=== PATIENT | female | born 1965 | race Caucasian/White ===

== ENCOUNTER 2025-02-08 00:26 | Day surgery (SDC) | payer BC, SELFPAY ==
[2025-02-01 09:32] VITALS: BMI 15.5
--- NOTE | 2025-02-01 09:33 | PC.NURSE ---
[facility] has started construction of its new state of the art ER which will open Spring 2026. With this, we anticipate parking may be a challenge for some our surgical patients and families. Parking spaces are limited but are available for all Surgical, obstetrics, and ER patients sharing this lot. If you arrive and find you are having a hard time finding a parking space, please note that we understand the challenges, please drive around the hospital and park near Hospital Entrance 1. When you enter this entrance, you can ask a volunteer to direct or take you back to the surgical waiting area to check in. We appreciate everyone?s understanding of these expected challenges while we build for your future. Report to the Outpatient Waiting Room, entrance under the green pavilion located off [address], at time _0730_ on date _[phone]_. Planned Procedure Time: _0930_.? Time changes happen often and if your time is changed the preop area will call you the afternoon before. - You and your visitor will be asked to self-screen and do not enter if you have any COVID symptoms. Please call surgeon if you need to reschedule. - A mask is optional within the hospital at this time. Patients may have clear liquids (water, carbonated beverages, clear teas, apple juice) until 3 hours prior to surgery with a maximum of 20 ounces. - No food from midnight until time of surgery and no smoking, or chewing tobacco (or any form of nicotine). No chewing gum, candy or mints. Take only the following medications with a SIP of water on the morning of surgery: ____Trelegy, Reglan and if needed zofran and or Compazine. DO NOT STOP ANY OF YOUR OTHER PRESCRIPTION MEDICATIONS PRIOR TO SURGERY EXCEPT THE FOLLOWING Hold all vitamins and supplements for 3 days per anesthesiologist. Medications to discontinue per physician Date to take last dose Please no make-up, nail trinidadian, hairspray, perfume, deodorant, or body powder the day of surgery.? No jewelry (including any body piercings) or valuables the day of surgery, leave them at home.? Please take a shower or bath the night before, or the morning of, surgery with an antibacterial soap.? Wear comfortable, loose fitting clothing.? - Jewelry must be removed prior to entering the operating room.? Rings and piercings that are not removed may be cut off. - The hospital will not accept responsibility for valuables.? - Please leave all valuables, including medications, at home the day of surgery. If you are going home after surgery, a licensed mobile lounge driver or operator must drive you home.? - NO public transportation without another adult if you receive anesthesia. - We recommend that an adult stay with you for 24 hours following discharge. - We also recommend that you do not drive, make important decision, drink alcoholic beverages, or take any drugs that were not prescribed by your health care provider for at least 24 hours after your discharge time. Follow any additional instructions given to you from your surgeon. Telephone instructions given to __Rose___and asked if any additional questions and then verbalized understanding. Patient advised to call surgeon office or pre surgery nurse liaison [phone] if any additional questions.
[2025-02-08] VITALS (8 sets, daily range): BP systolic 109–154; BP diastolic 50–97; PULSE 72–106; RESP 16–18; TEMP 36.4; O2SAT 98–100
--- NOTE | ~2025-02-08 | XR_ITS ---
EXAMINATION: XR retrograde pyelo w/stent RT DATE: 02/08/2025 13:20 INDICATION: Right internal ureteral stent placement TECHNIQUE: Fluoroscopic images from a right internal ureteral stent placement are submitted for review. 18 seconds of fluoroscopy time. FINDINGS: There is a right double-J internal ureteral stent projecting in expected position, with proximal [place] loop at the level of the renal pelvis and distal loop in the pelvis within the bladder lumen. IMPRESSION: 1. Right internal ureteral stent placement. Please refer to real-time procedural findings for details. Reviewed, dictated and finalized at location O. MAKER IMPRESSION: 1. Right internal ureteral stent placement. Please refer to real-time procedu ral findings for details.
--- OUTSIDE RECORDS SUMMARY | 2025-02-08 00:29 | XMS_ITS | Encounter Summary ---
Author Organization [facility] Address [address] [place] [address] Phone Care Team Providers Care Designer And Patternmaker Name Role Phone Hien Cunningham MD Primary Care Provider [phone] Turner Freeman MD Primary Care Provider Hien Cunningham MD Primary Care Provider [phone] Encounter Details Date Type Department Care Team (Late st Contact Info) Description 06/29/2017 Orders Only [facility] ProviderManuel MD [address] [place] [address] Social History Tobacco Use Types Packs/Day Years Used Date Smoking Tobacco: Former Comments Unknown Sex and Gender Information Value Date Recorded Sex Assigned at Not on file Legal Sex Female 10:16 PM MD UROLOGIST Gender Identity Not on file Sexual Orientation Not on file documented as of this encounter Plan of Treatment Not on file documented as of this encounter Procedures Procedure Name Priority Date/Time Associated Diagnosis Comments DISCHARGE LABORATORY CUMULATIVE REPORT 06/29/2017 12:00 AM CDT CYTOLOGY 06/29/2017 12:00 AM CDT documented in this encounter Results * DISCHARGE LABORATORY CUMULATIVE REPORT (06/29/2017 12:00 AM CDT) Narrative 06/29/2017 12:00 AM CDT Ordered by an unspecified provider. Historical Provider LAB BLOOD ORDERABLES Madyson l Result * CYTOLOGY (06/29/2017 12:00 AM CDT) Narrative 06/29/2017 12:00 AM CDT Ordered by an unspecified provider. Historical Provider LAB CYTOLOGY ORDERABLES F inal Result documented in this encounter Visit Diagnoses Not on filedocumented in this encounter Care Teams Designer And Patternmaker Relationship Specialty Start Date End Date Hien Cunningham MD [address] [address] PCP - General 06/29/17 07/07/17 Turner Freeman MD [address] [address] PCP - General 07/08/17 07/17/18 Hien Cunningham MD [address] [place] [address] PCP - General Family Medicine 07/18/18 documented as of this encounter
--- OUTSIDE RECORDS SUMMARY | 2025-02-08 00:29 | XMS_ITS | Encounter Summary ---
Author Organization [facility] Address [facility] [place] [address] Care Team Providers Care Pickle Sorter Name Role Phone Hien Cunningham MD Primary Care Provider [phone] Pawel Neil MD Unavailable [phone] Gemma Reed MD Unavailable [phone] Suhas Canada DO Unavailable Blaise Jennings MD Unavailable [phone] Ant Hernandez MD Unavailable Encounter Details Date Type Department Care Team (Latest Contact Info) Description 08/11/[address] [facility] , Bessie Johnston MD Social History Tobacco Use Types Packs/Day Years Used Date Smoking Tobacco: Never Assessed Comments Unknown Sex and Gender Information Value Date Recorded Sex Assigned at Female 03/06/2024 7:21 AM QUALITY SYSTEM MANAGER Legal Sex Female 7:54 PM CDT Gender Identity Not on file Sexual Orientation Not on file documented as of this encounter Plan of Treatment Upcoming Encounters Date Type Department Care Team (Late st Contact Info) Description 02/18/2025 12:00 PM QUALITY SYSTEM MANAGER Office Visit [facility] Family Medicine - [place] [address] [facility] [place] [address] Hien Cunningham MD [address] [facility] [address] [place] [address] 06/11/2025 10:30 AM CDT Appointment [facility] Radiation Oncology [address] [place] [address] Ant Hernandez MD [address] [facility] [address] [place] [address] 07/24/2025 8:20 AM CDT Office Visit [facility] Pulmonology Specialty Clinic - [place] [address] [place] [address] Krzysztof Molina MD [address] [address] documented as of this encounter Visit Diagnoses Not on filedocumented in this encounter Additional Health Concerns Infection Onset Date Last Indicated Resolved Time COVID-19 Rule Out 12/10/2019 12/10/2019 12/12/2019 6:30 AM CDT COVID-19 Rule Out 02/16/2021 02/16/2021 02/16/2021 3:32 PM QUALITY SYSTEM MANAGER COVID-19 Rule Out 02/16/2021 02/16/2021 02/18/2021 1:57 AM QUALITY SYSTEM MANAGER COVID-19 Confirmed 02/16/2021 02/16/2021 12:33 AM QUALITY SYSTEM MANAGER COVID-19 Rule Out 12/20/2022 12/20/2022 12/20/2022 11:11 AM QUALITY SYSTEM MANAGER COVID-19 Rule Out 01/29/2023 01/29/2023 01/29/2023 4:04 PM QUALITY SYSTEM MANAGER COVID-19 Rule Out 03/03/2023 03/03/2023 03/03/2023 9:58 AM QUALITY SYSTEM MANAGER Tuberculosis Rule-Out 06/05/2024 06/05/20242024 1:25 PM CDT 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 [facility] [address] [place], [place] [phone] Consulting Physician CARDIOVASCULAR DISEASE 05/29/24 Gemma Reed MD [address] [facility] [address] [place] [address] GASTROENTEROLOGY 05/29/24 Suhas Canada DO 3 [facility] [address] [place] [phone] Resident GASTROENTEROLOGY 05/29/24 Blaise Jennings MD [address] [place] [address] [address] [place] [phone] Medical Oncologist HEMATOLOGY/ONCOLOGY 05/29/24 Ant Hernandez MD 1 [place] [address] Consulting Physician RADIATION ONCOLOGY 06/18/24 documented as of this encounter
--- OUTSIDE RECORDS SUMMARY | 2025-02-08 00:29 | XMS_ITS | Encounter Summary ---
Author Organization [facility] Address [facility] [place] [address] Care Team Providers Care Procurement Internship Name Role Phone Hien Cunningham MD Primary Care Provider Pawel Neil MD Unavailable [phone] Gemma Rede MD Unavailable [phone] Suhas Canada DO Unavailable Blaise Jennings MD Unavailable [phone] Ant Hernandez MD Unavailable Encounter Details Date Type Department Care Team (Latest Contact Info) Description 11/01/2023 MyChart Message Enc [facility] Pulmonology Specialty Clinic - [address] [place] [address] Krzysztof Molina MD [address] [address] Follow up lung scan Social History Tobacco Use Types Packs/Day Years Used Date Smoking Tobacco: Former Cigarettes Passive Smoke Exposure: Past Smokeless Tobacco: Never Comments:Pt report she stopp ed smoking on August 17. Alcohol Use Standard Drinks/Week Comments Yes 6.7 (1 standard drin k = 0.6 oz pure alcohol) only on weekends with company [facility] Utilities Answer Date Recorded In the past 12 months has e [employer], gas, oil, or water [employer] threatened to shut off services in your home? No 01/29/2023 Humiliation, Afraid, Rape, and Kick questionnair e Answer Date Recorded Within the last year, have y ou been afraid of your partner or ex-partner? No 01/29/2023 Within the last year, have y ou been humiliated or emotionally abused in other ways by your partner or ex-partner? No Within the last year, have y ou been kicked, hit, slapped, or otherwise physically hurt by your partner or ex-partner? No 01/29/2023 Within the last year, have y ou been raped or forced to have any kind of sexual activity by your partner or ex-partner? No 01/29/2023 AUDIT-C Answer Date Recorded Frequency of Alcohol Consumption Not on file 11/03/2017 Average Number of Drinks 10 or more 018 Frequency of Binge Drinking Weekly 10/16 Overall Financial Resource Strain (CARDIA) Answe r Date Recorded How hard is it for you to pa y for the very basics like food, housing, medical care, and heating? Not hard at all 01/29/2023 PHQ-2 Answer Date Recorded Patient Health Questionnaire-2 Score 3 09/08/2023 Hunger Vital Sign Answer Date Recorded Within the past 12 months, y ou worried that your food would run out before you got the money to buy more. Never true 01/30/20 23 Within the past 12 months, t he food you bought just didn't last and you didn't have money to get more. Never true 01/29/2023 PRAPARE - Transportation Answer Date Re corded In the past 12 months, has l ack of transportation kept you from medical appointments or from getting medications? No 01/14 In the past 12 months, has l ack of transportation kept you from meetings, work, or from getting things needed for daily living? No 01/29/2023 Housing Stability Vital Sign Answer Robert e Recorded In the last 12 months, was t here a time when you were not able to pay the mortgage or rent on time? No 01/29/2023 In the last 12 months, how many places have you lived? 1 01/29/2023 In the last 12 months, was t here a time when you did not have a steady place to sleep or slept in a [place] facility (including now)? No 01/29/2023 Comments No Sex and Gender Information Value Date Recorded Sex Assigned at Female 03/06/2024 7:21 AM TOWBOAT PILOT Legal Sex Female 7:54 PM CDT Gender Identity Not on file Sexual Orientation Not on file documented as of this encounter Functional Status * Are you deaf or do you have serious difficulty hearing Answer Date of Assessment Author Status No 01/29/2023 12:27 PM Dagmar Santiago RN Active * Are you blind or do you have serious difficulty seeing, even when wearing glasses? Answer Date of Assessment Author Status No 01/29/2023 12:27 PM Dagmar Santiago RN Active * Do you have serious difficulty walking or climbing stairs? Answer Date of Assessment Author Status No 01/29/2023 12:27 PM Dagmar Santiago RN Active * Do you have difficulty dressing or bathing? Answer Date of Assessment Author Status No 01/29/2023 12:27 PM Dagmar Santiago RN Active * Because of a physical, mental, or emotional condition, do you have difficulty doing errands alone such as visiting a doctor's office or shopping? Answer Date of Assessment Author Status No 01/29/2023 12:27 PM Dagmar Santiago RN Active documented as of this encounter Mental Status * Because of a physical, mental, or emotional condition, do you have serious difficulty concentrating, remembering, or making decisions? Answer Entry Date Author Status No 01/29/2023 12:27 PM Dagmar Santiago RN Active documented in this encounter Plan of Treatment Upcoming Encounters Date Type Department Care Team (Late st Contact Info) Description 02/18/2025 12:00 PM TOWBOAT PILOT Office Visit [facility] Family Medicine - [place] [address] [facility], [address] ' [place] [address] Hien Cunningham MD [address] [facility] [place] [address] 06/11/2025 10:30 AM CDT Appointment [facility] Radiation Oncology [address] [place] [address] Ant Hernandez MD [address] [facility] [address] [place] [address] 07/24/2025 8:20 AM CDT Office Visit [facility] Pulmonology Specialty Clinic - 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 [facility] [address] [place], [place] [address] Consulting Physician CARDIOVASCULAR DISEASE 05/29/24 Gemma Reed MD [address] [place] [address] GASTROENTEROLOGY 05/29/24 Suhas Canada DO [address] [phone] Resident GASTROENTEROLOGY 05/29/24 Blaise Jennings MD [address] [place] [address] Medical Oncologist HEMATOLOGY/ONCOLOGY 05/29/24 Ant Hernandez MD 1 [place] [address] Consulting Physician RADIATION ONCOLOGY 06/18/24 documented as of this encounter
--- OUTSIDE RECORDS SUMMARY | 2025-02-08 00:29 | XMS_ITS | Clinical Summary ---
Author Organization [facility] Address [address] [place] [address] Care Team Providers Care Glass Installer Name Role Phone Unavailable Primary Care Provider Unavailabl e Social History Tobacco Use Types Packs/Day Years Used Date Smoking Tobacco: Never Assessed Comments Unknown Sex and Gender Information Value Date Recorded Sex Assigned at Not on file Legal Sex Female 7:28 PM TELEVISION ACTOR Gender Identity Not on file Sexual Orientation Not on file Plan of Treatment Health Maintenance Due Date Last Done Comments HPV/Cotest (21-29) 1985 CERVICAL CANCER SCREENING 1994 HPV/Cotest (30-65) 1994 PAP SMEAR 1994 BREAST CANCER SCREENING 2004 COLORECTAL SCREENING 2009 Colorectal Cancer Screening 2009 FIT-DNA Q 3 years 2009 FIT/FOBT Q 1 year 2009 Flex Sig/CT Colonography Q 5 years 2009 ZOSTER VACCINE (1 of 2) 2014 INFLUENZA VACCINE (#1) 2024 6, 11/19/2014, 11/11/2011, Additional history exists DTAP/TDAP/TD VACCINES (2 - Td or Tdap) 12/29/2025 12/30/2015 RSV VACCINE (60+ or ) (1 - 1-dose 75+ series) 10/31/2039 HEPATITIS B VACCINES Aged Out No long er eligible based on patient's age to complete this topic
--- OUTSIDE RECORDS SUMMARY | 2025-02-08 00:29 | XMS_ITS | Encounter Summary ---
Author Organization [facility] Address [facility] [place] [address] Care Team Providers Care Compensation Associate Name Role Phone Hien Cunningham MD Primary Care Provider [phone] Pawel Neil MD Unavailable [phone] Gemma Reed MD Unavailable [phone] Suhas Canada DO Unavailable Blaise Jennings MD Unavailable [phone] Ant Hernandez MD Unavailable Encounter Details Date Type Department Care Team (Latest Contact Info) Description 12/20/2017 Abstract [facility] , Bessie Johnston MD Social History Tobacco Use Types Packs/Day Years Used Date Smoking Tobacco: Every Day Cigarettes Smokeless Tobacco: Never Comments:.5- 1 pk a day Alcohol Use Standard Drinks/Week Comments Yes 0 (1 standard drink = 0.6 oz pur e alcohol) AUDIT-C Answer Date Recorded Frequency of Alcohol Consumption Not on file 11/03/2017 Average Number of Drinks 10 or more 018 Frequency of Binge Drinking Weekly 10/16 Comments Unknown Sex and Gender Information Value Date Recorded Sex Assigned at Female 03/06/2024 7:21 AM LOW ALTITUDE AIR DEFENSE OFFICER Legal Sex Female 7:54 PM CDT Gender Identity Not on file Sexual Orientation Not on file documented as of this encounter Plan of Treatment Upcoming Encounters Date Type Department Care Team (Late st Contact Info) Description 02/18/2025 12:00 PM LOW ALTITUDE AIR DEFENSE OFFICER Office Visit [facility] Family Medicine - [place] [address] [place] [address] Hien Cunningham MD [address] [facility] [address] [facility] [address] [place] [address] 06/11/2025 10:30 AM CDT Appointment [facility] Radiation Oncology [address] [place] [address] Ant Hernandez MD [address] [facility] [address] [place] [address] 07/24/2025 8:20 AM CDT Office Visit [facility] Pulmonology Specialty Clinic - [address] [place] [address] Krzysztof Molina MD 3 [facility] [address] [place] [address] documented as of this encounter Visit Diagnoses Not on filedocumented in this encounter Additional Health Concerns Infection Onset Date Last Indicated Resolved Time COVID-19 Rule Out 12/10/2019 12/10/2019 12/12/2019 6:30 AM CDT COVID-19 Rule Out 02/16/2021 02/16/2021 02/16/2021 3:32 PM LOW ALTITUDE AIR DEFENSE OFFICER COVID-19 Rule Out 02/16/2021 02/16/2021 02/18/2021 1:57 AM LOW ALTITUDE AIR DEFENSE OFFICER COVID-19 Confirmed 02/16/2021 02/16/2021 12:33 AM LOW ALTITUDE AIR DEFENSE OFFICER COVID-19 Rule Out 12/20/2022 12/20/2022 12/20/2022 11:11 AM LOW ALTITUDE AIR DEFENSE OFFICER COVID-19 Rule Out 01/29/2023 01/29/2023 01/29/2023 4:04 PM LOW ALTITUDE AIR DEFENSE OFFICER COVID-19 Rule Out 03/03/2023 03/03/2023 03/03/2023 9:58 AM LOW ALTITUDE AIR DEFENSE OFFICER Tuberculosis Rule-Out 06/05/2024 06/05/20242024 1:25 PM CDT 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 06/08/24 +MRSA sputum 06/05/2024 06/08/2024 documented as of this encounter Care Teams Compensation Associate Relationship Specialty Start Date End Date Hien Cunningham MD [address] [facility] [address] [place] [phone] PCP - General FAMILY PRACTICE 10/13/17 Pawel Neil MD Three [facility] [address] [place] [address] Consulting Physician CARDIOVASCULAR DISEASE 05/29/24 Gemma Reed MD [address] [facility] [facility] [address] [place] [address] GASTROENTEROLOGY 05/29/24 Suhas Canada DO 3 [facility] [address] [place] [phone] Resident GASTROENTEROLOGY 05/29/24 Blaise Jennings MD [address] [place] [address] [address] [place] [phone] Medical Oncologist HEMATOLOGY/ONCOLOGY 05/29/24 Ant Hernandez MD 1 [place] [address] Consulting Physician RADIATION ONCOLOGY 06/18/24 documented as of this encounter
--- OUTSIDE RECORDS SUMMARY | 2025-02-08 00:29 | XMS_ITS | Encounter Summary ---
Author Organization [facility] Address [address] [place] [address] Care Team Providers Care Piggery Worker Name Role Phone Hien Cunningham MD Primary Care Provider [phone] Pawel Neil MD Unavailable [phone] Gemma Reed MD Unavailable [phone] Suhas Canada DO Unavailable Blaise Jennings MD Unavailable [phone] Ant Hernandez MD Unavailable Encounter Details Date Type Department Care Team (Late st Contact Info) Description 11/07/2017 Abstract [facility] at [facility], [address] [address] Emelia Richmond MA Social History Tobacco Use Types Packs/Day Years [...] Sex Assigned at Female 03/06/2024 7:21 AM HAND SLITTER Legal Sex Female 7:54 PM CDT Gender Identity Not on file Sexual Orientation Not on file documented as of this encounter Plan of Treatment Upcoming Encounters Date Type Department Care Team (Late st Contact Info) Description 02/18/2025 12:00 PM HAND SLITTER Office Visit [facility] Family Medicine - [place] [address] [place] [address] Hien Cunningham MD [address] [facility] [address] [place] [address] 06/11/2025 10:30 AM CDT Appointment [facility] Radiation Oncology [address] [place] [address] Ant Hernandez MD [address] [facility] [address] [place], [place] [id number] 07/24/2025 8:20 AM CDT Office Visit [facility] Pulmonology Specialty Clinic - [address] [place] [address] Krzysztof Molina MD [address] [address] documented as of this encounter Procedures Procedure Name Priority Date/Time Associated Diagnosis Comments LIPID PANEL Routine 08/09/2023 CBC (OUTSIDE LAB) Routine 10/22/2017 COMPREHENSIVE METABOLIC PANEL Routine 10/22/2017 LIPID PANEL Routine 10/22/2017 HEMOGLOBIN GLYCOSYLATED A1C Routine 10/22/2017 THYROXINE, FREE (FT4) Routine 10/22/2017 THYROID STIM HORMONE TSH Routine 10/22/2017 documented in this encounter Results * LIPID PANEL (08/09/2023) CHOLESTEROL 270 HDL 51 TRIGLYCERIDES 294 NON HDL CHOLESTEROL 219 LDL (CALCULATED) 174 08/09/2023 us Default History Genericprovider LABORATORY Final Result * HEMOGLOBIN, GLYCOSYLATED (10/22/2017) Pathologist [facility] HGB A1C 6.2 10/22/2017 us Doc [facility] Abstract LABORATORY Final Result * LIPID PANEL (10/22/2017) Pathologist [facility] CHOLESTEROL 156 HDL 36 TRIGLYCERIDES 257 LDL (CALCULATED) 69 10/22/2017 us Doc [facility] Abstract LABORATORY Final Result * (ABNORMAL) COMPREHENSIVE METABOLIC PANEL (10/22/2017) Pathologist [facility] SODIUM S/P/B 140 POTASSIUM S/P/B 4.1 CO2 22 CHLORIDE S/P/B 101 GLUCOSE 113 mg/dL CALCIUM S/P/B 9.0 BUN 13 CREATININE S/P/B 0.53 0.5 - 1.0 EGFR AFR. AMER. 126(A) <=90 EGFR NON-AFR. AMER. 110(A) <=90 ALKALINE PHOSPHATASE S/P/B 75 ALT 15 AST 15 BILIRUBIN TOTAL S/P/B 0.4 ALBUMIN S/P/B 5.3(A) 3.5 - 5.0 TOTAL PROTEIN S/P/B 6.6 10/22/2017 us Doc [facility] Abstract LABORATORY Final Result * CBC (OUTSIDE LAB) (10/22/2017) Pathologist [facility] WBC 7.0 HGB 14.9 HCT 44.4 PLT 273 10/22/2017 us Doc [facility] Abstract LAB-OUTSIDE/ABSTRACTED Final Result * THYROXINE, FREE (FT4) (10/22/2017) FREE T4 1.09 10/22/2017 us Doc [facility] Abstract LABORATORY Final Result * THYROID STIM HORMONE, TSH (10/22/2017) TSH 0.731 10/22/2017 us Doc [facility] Abstract LABORATORY Final Result documented in this encounter Visit Diagnoses Not on filedocumented in this encounter Additional Health Concerns Infection Onset Date Last Indicated Resolved Time COVID-19 Rule Out 12/10/2019 12/10/2019 12/12/2019 6:30 AM CDT COVID-19 Rule Out 02/16/2021 02/16/2021 02/16/2021 3:32 PM HAND SLITTER COVID-19 Rule Out 02/16/2021 02/16/2021 02/18/2021 1:57 AM HAND SLITTER COVID-19 Confirmed 02/16/2021 02/16/2021 12:33 AM HAND SLITTER COVID-19 Rule Out 12/20/2022 12/20/2022 12/20/2022 11:11 AM HAND SLITTER COVID-19 Rule Out 01/29/2023 01/29/2023 01/29/2023 4:04 PM HAND SLITTER COVID-19 Rule Out 03/03/2023 03/03/2023 03/03/2023 9:58 AM HAND SLITTER Tuberculosis Rule-Out 06/05/2024 06/05/20242024 1:25 PM CDT 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 06/08/24 +MRSA sputum 06/05/2024 06/08/2024 documented as of this encounter Care Teams Piggery Worker Relationship Specialty Start Date End Date Hien Cunningham MD [address] [phone] PCP - General FAMILY PRACTICE 10/13/17 Pawel Neil MD Three [address] [address] Consulting Physician CARDIOVASCULAR DISEASE 05/29/24 Gemma Reed MD [address] [facility] [address] [place] [address] GASTROENTEROLOGY 05/29/24 Suhas Canada DO [address] [phone] Resident GASTROENTEROLOGY 05/29/24 Blaise Jennings MD [address] [place] [address] 100 [place] [phone] Medical Oncologist HEMATOLOGY/ONCOLOGY 05/29/24 Ant Hernandez MD 1 [place] [address] Consulting Physician RADIATION ONCOLOGY 06/18/24 documented as of this encounter
--- OUTSIDE RECORDS SUMMARY | 2025-02-08 00:29 | XMS_ITS ---
Author Organization 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 06/18/2024 Iron deficiency anemia 05/09/2024 Anemia 03/29/2024 Gastroparesis 03/29/2024 Acute respiratory failure with hypoxia 3 Type 2 diabetes mellitus wit hout complication, without long-term current use of insulin 06/08/2021 COPD, moderate 11/28/2017 Glaucoma 10/13/2017 Overview (05/09/2024): Description: [employer] in [place] Cervical dysplasia 03/26/2015 Hypertension 12/16/2009 Hyperlipidemia 12/16/2009 Current Treatment and Therapy Plans [facility]: Durvalumab - 28 Day Cycle - Small Cell Lung* Plan Start Date:09/11/2024 Plan Provider:Blaise Jennings MD Linked Problems Small cell carcinoma of righ t lung, unspecified part of lung Treatment Medications Current Day (Day 1 , Cycle 6 - Planned for 02/20/2025) durvalumab (IMFINZI) chemo infusion durv alumab (IMFINZI) 1,500 mg in sodium chloride 0.9 % 250 mL chemo infusion SUPPORT - Gammagard - [facility]* Plan Start Date:07/17/2024 Plan Provider:Blaise Jennings MD Linked Problems 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 No medications schedul ed. No medications scheduled. SUPPORT - HYDRATION WITHOUT ADDITIVES - [facility]* Plan Start Date:06/29/2024 Plan Provider:Blaise Jennings MD Linked Problems Small cell carcinoma of uppe r lobe of right lung Treatment Medications No medications scheduled. Other Current Plans [facility]I: Support - Monoferric* Plan Start Date:05/10/2024 Plan Provider:Blaise Jennings MD Linked Problems Iron deficiency anemia, unsp ecified iron deficiency anemia type Treatment Medications Current Day (Day 1, Cycle 2 - Planned for 09/14/2024) No medications scheduled. No medications schedul ed. Past Treatment and Therapy Plans ONCOLOGY TREATMENT Plan Name Start Date Discontinue Date Treatment Medications Discontinue Reason Plan Provider Cycles [facility]I: Cisplati n/Etopos judi - SCLC 06/19/2024 08/23/2024 CISplatin (PLATINOL) chemo infusion using 100 mgetoposide chemo infusion Therapy Complete Blaise Jennings MD 4 of 4 cycles started Lifetime Dose Tracking * Chemical Lifetime Dose Automatic Entry Manual Entr y Cisplatin 301.643 mg/m2 (414 mg) 301.643 mg/m2 (414 mg) 0 mg/m2 (0 mg)
--- OUTSIDE RECORDS SUMMARY | 2025-02-08 00:29 | XMS_ITS | Encounter Summary ---
Author Organization [facility] Address [facility] [place] [address] Care Team Providers Care Hanger Name Role Phone Hien Cunningham MD Primary Care Provider [phone] Pawel Neil MD Unavailable [phone] Gemma Reed MD Unavailable [phone] Suhas Canada DO Unavailable Blaise Jennings MD Unavailable [phone] Ant Hernandez MD Unavailable Encounter Details Date Type Department Care Team (Late st Contact Info) Description 06/22/2022 [employer] Message Enc [facility] THREE [address] [phone] Lisa, [facility] Provider TIMUR Results Social History Tobacco Use Types Packs/Day Years Used Date Smoking Tobacco: Every Day Cigarettes 1 45 Smokeless Tobacco: Never Comments:yes pROVIDER WILL A DVISE Alcohol Use Standard Drinks/Week Comments Yes 6.7 (1 standard drin k = 0.6 oz pure alcohol) only on weekends with [employer]UD[employer]-C Answer Date Recorded Frequency of Alcohol Consumption Not on file 11/03/2017 Average Number of Drinks 10 or more 018 Frequency of Binge Drinking Weekly 10/16 PHQ-2 Answer Date Recorded Patient Health Questionnaire-2 Score 0 05/31/2022 Comments No Sex and Gender Information Value Date Recorded Sex Assigned at Female 03/06/2024 7:21 AM CASING RUNNING MACHINE TENDER Legal Sex Female 7:54 PM CDT Gender Identity Not on file Sexual Orientation Not on file COVID-19 Exposure Response Date Recorded In the last 10 days, have yo u been in contact with someone who was confirmed or suspected to have Coronavirus/COVID-19? No / Unsure 06/15/2022 1:49 PM CDT documented as of this encounter Plan of Treatment Upcoming Encounters Date Type Department Care Team (Late st Contact Info) Description 02/18/2025 12:00 PM CASING RUNNING MACHINE TENDER Office Visit [facility] Medical [facility] Family Medicine - [place] [address] [facility] [place] [phone] Hien Cunningham MD [address] [facility] [address] [place] [phone] 06/11/2025 10:[address] [facility] Radiation Oncology [address] [place] [address] Ant Hernandez MD [address] [facility] [address] [place] [address] 07/24/2025 8:20 AM CDT Office Visit [facility] Pulmonology Specialty Clinic - [address] [place] [address] Krzysztof Molina MD [address] [address] documented as of this encounter Visit Diagnoses Not on filedocumented in this encounter Additional Health Concerns Infection Onset Date Last Indicated Resolved Time COVID-19 Rule Out 12/20/2022 12/20/2022 12/20/2022 11:11 AM CASING RUNNING MACHINE TENDER COVID-19 Rule Out 01/29/2023 01/29/2023 01/29/2023 4:04 PM CASING RUNNING MACHINE TENDER COVID-19 Rule Out 03/03/2023 03/03/2023 03/03/2023 9:58 AM CASING RUNNING MACHINE TENDER Tuberculosis Rule-Out 06/05/2024 06/05/20242024 1:25 PM CDT 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 06/08/24 +MRSA sputum 06/05/2024 06/08/2024 Assessment Noted Time PHQ-9 Depression Total Score: 0 03/17/19 9:27 AM CASING RUNNING MACHINE TENDER documented as of this encounter Care Teams Hanger Relationship Specialty Start Date End Date Hien Cunningham MD [address] [facility] [address] [place] [address] PCP - General FAMILY PRACTICE 10/13/17 Pawel Neil MD Three [facility] [address] [place], [place] [phone] Consulting Physician CARDIOVASCULAR DISEASE 05/29/24 Gemma Reed MD [address] [facility] [address] [place] [address] GASTROENTEROLOGY 05/29/24 Suhas Canada DO 3 [facility] [address] [place] [phone] Resident GASTROENTEROLOGY 05/29/24 Blaise Jennings MD [address] [place] [address] 100 [place] [phone] Medical Oncologist HEMATOLOGY/ONCOLOGY 05/29/24 Ant Hernandez MD 1 [facility] [place] [address] Consulting Physician RADIATION ONCOLOGY 06/18/24 documented as of this encounter
--- OUTSIDE RECORDS SUMMARY | 2025-02-08 00:29 | XMS_ITS | Encounter Summary ---
Author Organization [facility] Address [facility] [place] [address] Care Team Providers Care Industrial Sales Manager Name Role Phone Hien Cunningham MD Primary Care Provider [phone] Pawel Neil MD Unavailable [phone] Gemma Reed MD Unavailable [phone] Suhas Canada DO Unavailable Blaise Jennings MD Unavailable [phone] Ant Hernandez MD Unavailable Encounter Details Date Type Department Care Team (Late st Contact Info) Description 08/11/2022 MyChart Message Enc [facility] [address] [place] [address] Lisa, [facility] Provider Air Quality Message Social History Tobacco Use Types Packs/Day Years Used Date Smoking Tobacco: Every Day Cigarettes 1 45 Passive Smoke Exposure: Past Smokeless Tobacco: Never Comments:yes pROVIDER WILL A DVISE Alcohol Use Standard Drinks/Week Comments Yes 6.7 (1 standard drin k = 0.6 oz pure alcohol) only on weekends with company AUDIT-C Answer Date Recorded Frequency of Alcohol Consumption Not on file 11/03/2017 Average Number of Drinks 10 or more 018 Frequency of Binge Drinking Weekly 10/16 PHQ-2 Answer Date Recorded Patient Health Questionnaire-2 Score 0 07/15/2022 Comments No Sex and Gender Information Value Date Recorded Sex Assigned at Female 03/06/2024 7:21 AM GRAVEL INSPECTOR Legal Sex Female 7:54 PM CDT Gender Identity Not on file Sexual Orientation Not on file COVID-19 Exposure Response Date Recorded In the last 10 days, have yo u been in contact with someone who was confirmed or suspected to have Coronavirus/COVID-19? No / Unsure 07/29/2022 4:35 PM CDT documented as of this encounter Plan of Treatment Upcoming Encounters Date Type Department Care Team (Late st Contact Info) Description 02/18/2025 12:00 PM GRAVEL INSPECTOR Office Visit [facility] Family Medicine - [place] [address] [facility], [address] [place] [phone] Hien Cunningham MD [address] [facility] 108 [place] [phone] 06/11/2025 10:30 AM CDT Appointment [facility] Radiation Oncology [address] [place] [address] Ant Hernandez MD 210 [facility] [address] [place] [address] 07/24/2025 8:20 AM CDT Office Visit [facility] Medical [facility] Pulmonology Specialty Clinic - [address] [place] [address] Krzysztof Molina MD [address] [address] documented as of this encounter Visit Diagnoses Not on filedocumented in this encounter Additional Health Concerns Infection Onset Date Last Indicated Resolved Time COVID-19 Rule Out 12/20/2022 12/20/2022 12/20/2022 11:11 AM GRAVEL INSPECTOR COVID-19 Rule Out 01/29/2023 01/29/2023 01/29/2023 4:04 PM GRAVEL INSPECTOR COVID-19 Rule Out 03/03/2023 03/03/2023 03/03/2023 9:58 AM GRAVEL INSPECTOR Tuberculosis Rule-Out 06/05/2024 06/05/20242024 1:25 PM CDT 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 06/08/24 +MRSA sputum 06/05/2024 06/08/2024 Assessment Noted Time PHQ-9 Depression Total Score: 0 03/17/19 9:27 AM GRAVEL INSPECTOR documented as of this encounter Care Teams Industrial Sales Manager Relationship Specialty Start Date End Date Hien Cunningham MD [address] [facility] [address] [place] [phone] PCP - General FAMILY PRACTICE 10/13/17 Pawel Neil MD Three [facility] 1800 [place], [place] [phone] Consulting Physician CARDIOVASCULAR DISEASE 05/29/24 Gemma Reed MD [address] [facility] [address] [place] [address] GASTROENTEROLOGY 05/29/24 Suhas Canada DO 3 [facility] [address] [place] [phone] Resident GASTROENTEROLOGY 05/29/24 Blaise Jennings MD [address] [place] [address] 100 [place] [address] Medical Oncologist HEMATOLOGY/ONCOLOGY 05/29/24 Ant Hernandez MD 1 [place] [address] Consulting Physician RADIATION ONCOLOGY 06/18/24 documented as of this encounter
--- OUTSIDE RECORDS SUMMARY | 2025-02-08 00:29 | XMS_ITS | Encounter Summary ---
Author Organization [facility] Address [facility] [place] [address] Care Team Providers Care Plastic Duplicator Name Role Phone Hien Cunningham MD Primary Care Provider [phone] Pawel Neil MD Unavailable [phone] Gemma Reed MD Unavailable [phone] Suhas Canada DO Unavailable Blaise Jennings MD Unavailable [phone] Ant Hernandez MD Unavailable Encounter Details Date Type Department Care Team (Latest Contact Info) Description 02/27/2022 MyChart Message Enc [facility] Medical Group Multispecialty Care - [facility] [address] [facility], [address] [place] [address] Ren Gonsalves MD Insurance coverage Social History Tobacco Use Types Packs/Day Years Used Date Smoking Tobacco: Every Day Cigarettes 0.5 45 Smokeless Tobacco: Never Comments:yes pROVIDER WILL A DVISE Alcohol Use Standard Drinks/Week Comments Yes 0 (1 standard drink = 0.6 oz pur e alcohol) minimal AUDIT-C Answer Date Recorded Frequency of Alcohol Consumption Not on file 11/03/2017 Average Number of Drinks 10 or more 018 Frequency of Binge Drinking Weekly 10/16 PHQ-2 Answer Date Recorded PHQ-2 Score - If the patient scores above 3, please move on to questions 3-9 0 01/11/2022 Comments No Sex and Gender Information Value Date Recorded Sex Assigned at Female 03/06/2024 7:21 AM SPRAYER AUTO PARTS Legal Sex Female 7:54 PM CDT Gender Identity Not on file Sexual Orientation Not on file documented as of this encounter Plan of Treatment Upcoming Encounters Date Type Department Care Team (Late st Contact Info) Description 02/18/2025 12:00 PM SPRAYER AUTO PARTS Office Visit [facility] Family Medicine - [place] [address] [facility], [address] [place] [address] Hien Cunningham MD [address] [facility] 108 [place] [phone] 06/11/2025 10:30 AM CDT Appointment [facility] Radiation Oncology [address] [place] [address] [place] [address] Ant Hernandez MD 210 [facility] [address] [place] [address] 07/24/2025 8:20 AM CDT Office Visit [facility] Pulmonology Specialty Clinic - [address] [place] [address] Krzysztof Molina MD 3 [facility] [address] [place] [address] documented as of this encounter Visit Diagnoses Not on filedocumented in this encounter Additional Health Concerns Infection Onset Date Last Indicated Resolved Time COVID-19 Rule Out 12/20/2022 12/20/2022 12/20/2022 11:11 AM SPRAYER AUTO PARTS COVID-19 Rule Out 01/29/2023 01/29/2023 01/29/2023 4:04 PM SPRAYER AUTO [employer]S COVID-19 Rule Out 03/03/2023 03/03/2023 03/03/2023 9:58 AM SPRAYER AUTO PARTS Tuberculosis Rule-Out 06/05/2024 06/05/20242024 1:25 PM CDT 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 06/08/24 +MRSA sputum 06/05/2024 06/08/2024 Assessment Noted Time PHQ-9 Depression Total Score: 0 01/13/20 21 7:20 AM SPRAYER AUTO PARTS documented as of this encounter Care Teams Plastic Duplicator Relationship Specialty Start Date End Date Hien Cunningham MD [address] [facility] 108 [place] [phone] PCP - General FAMILY PRACTICE 10/13/17 Pawel Neil MD Three [facility] 1800 [place] [address] Consulting Physician CARDIOVASCULAR DISEASE 05/29/24 Gemma Reed MD [facility] S [facility] [address] [place] [address] GASTROENTEROLOGY 05/29/24 Suhas Canada DO 3 [facility] [address] [place] [phone] Resident GASTROENTEROLOGY 05/29/24 Blaise Jennings MD [address] [place] [address] 100 [place] [phone] Medical Oncologist HEMATOLOGY/ONCOLOGY 05/29/24 Ant Hernandez MD 1 [place] [address] Consulting Physician RADIATION ONCOLOGY 06/18/24 documented as of this encounter
--- OUTSIDE RECORDS SUMMARY | 2025-02-08 00:29 | XMS_ITS | Patient Health Record ---
Author Organization [employer] Address [address] [facility]. [address] [place] [address] Care Team Providers Care Card Services Specialist Name Role Phone Arik BROWN, Deven Nihcole Primary Care Provider Valarie vailable Reason For Referral No Information Plan Of Treatment No Information Insurance Providers Payer Name Payer Address Payer Phone Subscriber Number Group Number Insured Name Patient Relationship to Insured Coverage Start Date Coverage End Date [facility] [employer] [id number] [address] [address] [place] [phone] [id number] Talia Cintron Self - patient is the insured 9
--- OUTSIDE RECORDS SUMMARY | 2025-02-08 00:30 | XMS_ITS | Encounter Summary ---
[facility] Organization [facility] Address [facility] [place] [address] Care Team Providers Care Heating Element Repairer Name Role Phone Hien Cunningham MD Primary Care Provider Pawel Neil MD Unavailable [phone] Gemma Reed MD Unavailable [phone] Suhas Canada DO Unavailable Blaise Jennings MD Unavailable [phone] Ant Hernandez MD Unavailable Encounter Details Date Type Department Care Team (Late st Contact Info) Description 04/18/2024 MyChart Message Enc [facility] Family Medicine - [place] [address] [facility], [address] [place] [address] Hien Cunningham MD [address] [facility] [address] [place] [address] Gastroparesis Social History Tobacco Use Types Packs/Day Years Used Date Smoking Tobacco: Some Days Cigarettes Passive Smoke Exposure: Current Smokeless Tobacco: Never Comments:Stopped smoking at the end of November. Only vaped for a few months and quit. Is smoking one to two ciggs a day. Alcohol Use Standard Drinks/Week Comments Yes 6.7 (1 standard drin k = 0.6 oz pure alcohol) only on weekends with [employer] [facility] Utilities Answer Date Recorded In the past 12 months has th e electric, gas, oil, or water company threatened to shut off services in your [...] Date Recorded Patient Health Questionnaire-2 Score 3 02/27/2024 Hunger Vital Sign Answer Date Recorded Within the past 12 months, y ou worried that your food would run out before you got the money to buy more. Never true 04/12/19 25 Within the past 12 months, t he food you bought just didn't last and you didn't have money to get more. Never true 04/12/2024 PRAPARE - Transportation Answer Date Re corded [...] Sex Assigned at Female 03/06/2024 7:21 AM MACHINE TACK PULLER Legal Sex Female 7:54 PM CDT Gender [...] Author Status No 01/29/2023 12:27 PM Dagmar Santiaog RN Active documented in this encounter Plan of Treatment Upcoming Encounters Date Type Department Care Team (Late st Contact Info) Description 02/18/2025 12:00 PM MACHINE TACK PULLER Office Visit [facility] [place] [address] [facility], [address] [place] [address] Hien Cunningham MD [address] [facility] [address] [place] [phone] 06/11/2025 10:30 AM CDT Appointment [facility] Radiation Oncology [address] [place] [address] Ant Hernandez MD [address] [facility] [address] [place] [address] 07/24/2025 8:20 AM CDT Office Visit [facility] Pulmonology Specialty Clinic - [address] [place] [address] Krzysztof Molina MD 3 [facility] [address] [place], [place] [id number] documented as of this encounter Visit Diagnoses Not on filedocumented in this encounter Additional Health Concerns Infection Onset Date Last Indicated Resolved Time Tuberculosis Rule-Out 06/05/2024 06/05/20242024 1:25 PM CDT 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 06/08/24 +MRSA sputum 06/05/2024 06/08/2024 Assessment Noted Time PHQ-9 Depression Total Score: 14 025 11:48 AM MACHINE TACK PULLER documented as of this encounter Care Teams Heating Element Repairer Relationship Specialty Start Date End Date Hien Cunningham MD [address] [facility] [address] [place] [phone] PCP - General FAMILY PRACTICE 10/13/17 Pawel Neil MD Three [facility]. [facility] [address] [place], [place] [address] Consulting Physician CARDIOVASCULAR DISEASE 05/29/24 Gemma Reed MD [address] [place] [address] GASTROENTEROLOGY 05/29/24 Suhas Canada DO [address] [phone] Resident GASTROENTEROLOGY 05/29/24 Blaise Jennings MD [address] [place] [phone] Medical Oncologist HEMATOLOGY/ONCOLOGY 05/29/24 Ant Hernandez MD 1 [place] [address] Consulting Physician RADIATION ONCOLOGY 06/18/24 documented as of this encounter
--- OUTSIDE RECORDS SUMMARY | 2025-02-08 00:30 | XMS_ITS | Encounter Summary ---
Author Organization [facility] Address [facility] [place] [address] Care Team Providers Care Tool And Die Maker Apprentice Name Role Phone Hien Cunningham MD Primary Care Provider [phone] Pawel Neil MD Unavailable [phone] Gemma Reed MD Unavailable [phone] Suhas Canada DO Unavailable Blaise Jennings MD Unavailable [phone] Ant Hernandez MD Unavailable Encounter Details Date Type Department Care Team (Late st Contact Info) Description 03/08/2024 MyChart Message Enc [facility] Family Medicine - [place] [address] [facility], [address] [place] [address] Hien Cunningham MD [address] [facility] [address] [place] [address] Another fall.... Social History Tobacco Use Types Packs/Day Years Used Date Smoking Tobacco: Former Cigarettes Passive Smoke Exposure: Past Smokeless Tobacco: Never Comments:Stopped smoking at the end of November. Only vaped for a few months and quit. Alcohol Use Standard Drinks/Week Comments Yes 6.7 (1 standard drin k = 0.6 oz pure alcohol) only on weekends with [employer] [facility] Utilities Answer Date Recorded In the [...] place to sleep or slept in a longterm (including now)? No 01/29/2023 Comments No Sex and Gender Information Value Date Recorded Sex Assigned at Female 03/06/2024 7:21 AM CARD PROCESSING CLERK Legal Sex Female 7:54 PM CDT Gender [...] st Contact Info) Description 02/18/2025 12:00 PM CARD PROCESSING CLERK Office Visit [facility] Family Medicine - [place] [address] [facility], [address] [place] [phone] Hien Cunningham MD [address] [facility] [place] [address] 06/11/2025 10:30 AM CDT Appointment [facility] Radiation Oncology [address] [place] [address] Ant Hernandez MD 210 [facility] [address] [place] [address] 07/24/2025 8:20 AM CDT Office Visit [facility] Pulmonology Specialty Clinic - [address] [place] [address] Krzysztof Molina MD [address] [address] documented as of this encounter Visit Diagnoses Not on filedocumented in this encounter Additional Health Concerns Infection Onset Date Last Indicated Resolved Time Tuberculosis Rule-Out 06/05/2024 06/05/20242024 1:25 PM CDT 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 06/08/24 +MRSA sputum 06/05/2024 06/08/2024 Assessment Noted Time PHQ-9 Depression Total Score: 14 025 11:48 AM CARD PROCESSING CLERK documented as of this encounter Care Teams Tool And Die Maker Apprentice Relationship Specialty Start Date End Date Hien Cunningham MD [address] [facility] [address] [place] [phone] PCP - General FAMILY PRACTICE 10/13/17 Pawel Neil MD Three [facility]. [facility] [address] [place] [address] Consulting Physician CARDIOVASCULAR DISEASE 05/29/24 Gemma Reed MD [address] [place] [address] GASTROENTEROLOGY 05/29/24 Suhas Canada DO [address] [address] Resident GASTROENTEROLOGY 05/29/24 Blaise Jennings MD [address] [place] [phone] Medical Oncologist HEMATOLOGY/ONCOLOGY 05/29/24 Ant Hernandez MD 1 [place] [address] Consulting Physician RADIATION ONCOLOGY 06/18/24 documented as of this encounter
--- OUTSIDE RECORDS SUMMARY | 2025-02-08 00:30 | XMS_ITS ---
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 Hernandez Vulvar carcinoma 10/13/2017 Overview (07/24/2018): Description: sees Dr. 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 Past Treatment and Therapy Plans No past plan information found. Radiation Treatments * Course C2 10/10/2024 - 10/24/2024 Treatment Period Energy Fraction Dose Fractions Total Dose Plans Planned HA_Brain 10/10/2024 - 10/24/2024 10 of 10 / Reference Points Delivered HA_Brain 10/10/2024 - 10/24/2024 [id number] * Course C1 07/10/2024 - 08/24/2024 Treatment Period Energy Fraction Dose Fractions Total Dose Plans Planned Lung_RUL 07/10/2024 - 08/24/2024 33 of 33 / Reference Points Delivered Lung_RUL 07/10/2024 - 08/24/2024 66 Resolved Problems Problem Noted Date Diagnosed Date Resolved Date Chest pain 12/31/2019
--- OUTSIDE RECORDS SUMMARY | 2025-02-08 00:30 | XMS_ITS | Encounter Summary ---
Author Organization [facility] Address [facility] [place] [address] Care Team Providers Care Weather Stripper Name Role Phone Hien Cunningham MD Primary Care Provider [phone] Pawel Neil MD Unavailable [phone] Gemma Reed MD Unavailable [phone] Suhas Canada DO Unavailable Blaise Jennings MD Unavailable [phone] Ant Hernandez MD Unavailable Encounter Details Date Type Department Care Team (Late st Contact Info) Description 02/03/2024 MyChart Message Enc [facility] Family Medicine - [place] [address] [facility], [address] [place] [address] Hien Cunningham MD [address] [facility] [address] [place] [address] Ultrasound Social History Tobacco Use Types Packs/Day Years Used Date Smoking Tobacco: Former Cigarettes Passive Smoke Exposure: Past Smokeless Tobacco: Never Comments:Stopped smoking at the end of November. Only vaped for a few months and quit. Alcohol Use Standard Drinks/Week Comments Yes 6.7 (1 standard drin k = 0.6 oz pure alcohol) only on weekends with [employer] [facility] [employer] Answer Date Recorded In the past 12 months has th e [employer], gas, oil, or water [employer] threatened to shut off services in your [...] place to sleep or slept in a senior living (including now)? No 01/29/2023 Comments No Sex and Gender Information Value Date Recorded Sex Assigned at Female 03/06/2024 7:21 AM CHANNELER RUNNER Legal Sex Female 7:54 PM CDT Gender [...] st Contact Info) Description 02/18/2025 12:00 PM CHANNELER RUNNER Office Visit [facility] Family Medicine - [place] [address] [facility], [address] [place] [address] Hien Cunningham MD [address] [facility] [address] [place] [address] 06/11/2025 10:30 AM CDT Appointment [facility] Radiation Oncology [address] [place] [address] Ant Hernandez MD 210 [facility] [address] [place] [address] 07/24/2025 8:20 AM CDT Office Visit [facility] Pulmonology Specialty Clinic - [place] [address] [place] [address] Krzysztof Molina MD 3 [facility] [address] [place] [address] documented as of this encounter Visit Diagnoses Not on filedocumented in this encounter Additional Health Concerns Infection Onset Date Last Indicated Resolved Time Tuberculosis Rule-Out 06/05/2024 06/05/20242024 1:25 PM CDT 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 06/08/24 +MRSA sputum 06/05/2024 06/08/2024 Assessment Noted Time PHQ-9 Depression Total Score: 11 024 6:04 AM CDT documented as of this encounter Care Teams Weather Stripper Relationship Specialty Start Date End Date Hien Cunningham MD [address] [facility] [address] [place] [address] PCP - General FAMILY PRACTICE 10/13/17 Pawel Neil MD Three [facility]. [facility] [address] [place] [address] Consulting Physician CARDIOVASCULAR DISEASE 05/29/24 Gemma Reed MD [address] [place] [address] GASTROENTEROLOGY 05/29/24 Suhas Canada DO [address] [address] Resident GASTROENTEROLOGY 05/29/24 Blaise Jennings MD [address] [place] [phone] Medical Oncologist HEMATOLOGY/ONCOLOGY 05/29/24 Ant Hernandez MD 1 [place] [address] Consulting Physician RADIATION ONCOLOGY 06/18/24 documented as of this encounter
--- OUTSIDE RECORDS SUMMARY | 2025-02-08 00:30 | XMS_ITS | Encounter Summary ---
Author Organization [facility] Address [facility] [place] [address] Care Team Providers Care Exceptional Children'S Teacher Name Role Phone Hien Cunningham MD Primary Care Provider Pawel Neil MD Unavailable [phone] Gemma Reed MD Unavailable [phone] Suhas Canada DO Unavailable Blaise Jennings MD Unavailable [phone] Ant Hernandez MD Unavailable Encounter Details Date Type Department Care Team (Late st Contact Info) Description 12/17/2024 Results Follow-Up [facility] Family Medicine - [place] [address] [facility], [address] [place] [address] Hien Cunningham MD [address] [facility] [address] [place] [phone] HEMOGLOBIN, GLYCOSYLATED, LIPID PANEL, VITAMIN B-12, TSH W/REFLEX Social History Tobacco Use Types Packs/Day Years Used Date Smoking Tobacco: Former Cigarettes 1 50.5 1 975 - 08/09/2024 Passive Smoke Exposure: Current Smokeless Tobacco: Never Comments:Smoking a few cigar ettes a week. Alcohol Use Standard Drinks/Week Comments Not Currently 0 (1 standard drink = 0.6 oz pur e alcohol) [facility] Utilities Answer Date Recorded In the past 12 months has th e electric, gas, oil, or water company threatened to shut off services in your home? No 06/08/2024 Humiliation, Afraid, Rape, and Kick questionnair e Answer Date Recorded Within the last year, have y ou been afraid of your partner or ex-partner? No 06/08/2024 Within the last year, have y ou been humiliated or emotionally abused in other ways by your partner or ex-partner? No Within the last year, have y ou been kicked, hit, slapped, or otherwise physically hurt by your partner or ex-partner? No 06/08/2024 Within the last year, have y ou been raped or forced to have any kind of sexual activity by your partner or ex-partner? No 06/08/2024 AUDIT-C Answer Date Recorded Frequency of Alcohol Consumption Not on file 11/03/2017 Average Number of Drinks 10 or more 018 Frequency of Binge Drinking Weekly 10/16 Overall Financial Resource Strain (CARDIA) Answe r Date Recorded How hard is it for you to pa y for the very basics like food, housing, medical care, and heating? Not hard at all 06/08/2024 PHQ-2 Answer Date Recorded Patient Health Questionnaire-2 Score 3 02/27/2024 Hunger Vital Sign Answer Date Recorded Within the past 12 months, y ou worried that your food would run out before you got the money to buy more. Never true 06/09/19 Within the past 12 months, t he food you bought just didn't last and you didn't have money to get more. Never true 06/08/2024 PRAPARE - Transportation Answer Date Re corded In the past 12 months, has l ack of transportation kept you from medical appointments or from getting medications? No 05/16 In the past 12 months, has l ack of transportation kept you from meetings, work, or from getting things needed for daily living? No 06/08/2024 Housing Stability Vital Sign Answer Robert e [...] place to sleep or slept in a fdc (including now)? No 01/29/2023 Housing Stability Vital Sign Answer Robert e Recorded In the last 12 months, was t here a time when you were not able to pay the mortgage or rent on time? No 06/08/2024 In the past 12 months, how m any times have you moved where you were living? 0 06/08/2024 At any time in the past 12 m [facility], were you homeless or living in a fdc (including now)? No 06/08/2024 Comments No Sex and Gender Information Value Date Recorded Sex Assigned at Female 03/06/2024 7:21 AM FLOWERS SALESPERSON Legal Sex Female 7:54 PM CDT Gender Identity Not on file Sexual Orientation Not on file documented as of this encounter Functional Status * Are you deaf or do you have serious difficulty hearing Answer Date of Assessment Author Status No 06/08/2024 2:38 PM CDT Sandra Tsai S, R N Active * Are you blind or do you have serious difficulty seeing, even when wearing glasses? Answer Date of Assessment Author Status No 06/08/2024 2:38 PM CDT Sandra Tsai S, R N Active * Do you have serious difficulty walking or climbing stairs? Answer Date of Assessment Author Status Yes 06/08/2024 2:38 PM CDT Sandra Tsai S, R N Active * Do you have difficulty dressing or bathing? Answer Date of Assessment Author Status No 06/08/2024 2:38 PM CDT Sandra Tsai S, R N Active * Because of a physical, mental, or emotional condition, do you have difficulty doing errands alone such as visiting a doctor's office or shopping? Answer Date of Assessment Author Status No 06/08/2024 2:38 PM CDT Sandra Tsai S, R N Active documented as of this encounter Mental Status * Because of a physical, mental, or emotional condition, do you have serious difficulty concentrating, remembering, or making decisions? Answer Entry Date Author Status No 06/08/2024 2:38 PM CDT Sandra Tsai S, R N Active documented in this encounter Plan of Treatment Upcoming Encounters Date Type Department Care Team (Late st Contact Info) Description 02/18/2025 12:00 PM FLOWERS SALESPERSON Office Visit [facility] Family Medicine - [place] [address] [facility], [address] [place] [address] Hien Cunningham MD [address] [phone] 06/11/2025 10:30 AM CDT Appointment [facility] Radiation Oncology [address] [place] [address] [place] [address] Ant Hernandez MD [address] [facility] [address] [place] [address] 07/24/2025 8:20 AM CDT Office Visit [facility] Pulmonology Specialty Clinic - [address] [place] [address] Krzysztof Molina MD [address] [phone] documented as of this encounter Visit Diagnoses Not on filedocumented in this encounter Additional Health Concerns Infection Onset Date Last Indicated Resolved Time 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 06/08/24 +MRSA sputum 06/05/2024 06/08/2024 Assessment Noted Time PHQ-9 Depression Total Score: 14 025 11:48 AM FLOWERS SALESPERSON documented as of this encounter Care Teams Exceptional Children'S Teacher Relationship Specialty Start Date End Date Hien Cunningham MD [address] [facility] [address] [place] [address] PCP - General FAMILY PRACTICE 10/13/17 Pawel Neil MD Three [facility] [address] [place] [address] Consulting Physician CARDIOVASCULAR DISEASE 05/29/24 Gemma Reed MD [address] [place] [address] GASTROENTEROLOGY 05/29/24 Suhas Canada DO 3 [facility] [address] [place] [address] Resident GASTROENTEROLOGY 05/29/24 Blaise Jennings MD [address] [place] [address] [address] [place] [phone] Medical Oncologist HEMATOLOGY/ONCOLOGY 05/29/24 Ant Hernandez MD 1 [place] [address] Consulting Physician RADIATION ONCOLOGY 06/18/24 documented as of this encounter
--- OUTSIDE RECORDS SUMMARY | 2025-02-08 00:30 | XMS_ITS | Clinical Summary ---
Author Organization [facility] Address [address] [place] [address] Phone Care Team Providers Care Kennel Keeper Name Role Phone Hien Cunningham MD Primary Care Provider [phone] Blaise Jennings MD Unavailable [phone] Allergies Active Allergy Reactions Criticality Noted Date Comments Doxycycline Itching,Rash Medium 04/09/2019 Sulfamethoxazole-Trimet hoprim Rash High 04/10/2019 Varenicline Other (see Comments) Low 11/03/2017 sucidal thoughts sucidal thoughts sucidal thoughts sucidal thoughts sucidal thoughts Medications albuterol (ACCUNEB) 0.63 MG/3ML Nebulizer Soln take 0.63 mg by inhalation. 02/03/20 23 Active albuterol (Ventolin HFA) 108 (90 Base) MCG/ACT Aerosol Solution 09/03/19 20 Active Trelegy Ellipta 200-62.5-25 MCG/ACT AEROSOL POWDER, BREATH ACTIVATED take 1 Puff by inhalation. 05/04/19 25 Active ondansetron (ZOFRAN) 4 MG TabletIndicatio ns:Small cell carcinoma of right lung, unspecified part of lung Take 1 Tablet by mouth every 6 hours as needed for Nausea - 1st line. 40 Tablet 3 06/20/19 25 Active traMADol (ULTRAM) 50 MG TabletIndicatio ns:Small cell carcinoma of right lung, unspecified part of lung Take 1 Tablet by mouth every 6 hours as needed for Moderate or more severe pain for up to 30 doses. 30 Tablet 06/30/19 25 Active metoclopramide (REGLAN) 5 MG Tablet Take 1 Tablet by mouth 4 times daily (before meals and nightly). 360 Tablet 3 11/24/19 25 Active prochlorperazin e (COMPAZINE) 10 MG TabletIndicatio ns:Small cell carcinoma of right lung, unspecified part of lung TAKE 1 TABLET BY MOUTH EVERY 4 HOURS NEEDED FOR NAUSEA- 1ST LINE 40 Tablet 3 12/08/19 25 Active megestrol (MEGACE) 40 MG/ML Suspension SHAKE LIQUID AND TAKE 10 ML BY MOUTH DAILY 300 mL 01/23/20 25 Active Plecanatide 3 MG Tablet Take 3 mg by mouth. Trulance 05/22/19 25 025 Discontinued(Me d List Clean Up) megestrol (MEGACE) 400 MG/10ML Suspension Take 10 mL by mouth daily for 30 days. 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 01/23/2025 11:00 AM ASSOCIATE BRAND MANAGER Clinical Support [facility] [address] [address] Small cell carcinoma of right lung, unspecified part of lung (Primary Dx); 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; Other fatigue 01/23/2025 Travel 01/22/2025 Refill [facility] [address] [address] Lilliana Harrington, CROP OR GRAIN FARMWORKER, DITCHER Medication Refill 01/09/2025 11:45 AM ASSOCIATE BRAND MANAGER Clinical Support [facility] [address] [address] Nurse, [facility] [place] 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) 01/09/2025 11:00 AM ASSOCIATE BRAND MANAGER Office Visit [facility] [address] [address] Lilliana Harrington, CROP OR GRAIN FARMWORKER, DITCHER 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); Other fatigue 01/09/2025 10:45 AM ASSOCIATE BRAND MANAGER Lab [facility] [address] [address] Lab, [facility] [place] 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 01/09/2025 Travel 12/26/2024 11:00 AM ASSOCIATE BRAND MANAGER Clinical Support [facility] [address] [address] 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); Small cell carcinoma of right lung, unspecified part of lung 12/26/2024 10:45 AM ASSOCIATE BRAND MANAGER Office Visit [facility] [address] [address] Lilliana Harrington, CROP OR GRAIN FARMWORKER, DITCHER 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); 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; Slurred speech 12/26/2024 10:30 AM ASSOCIATE BRAND MANAGER Lab [facility] [address] [address] Lab, [facility] [place] Iron deficiency anemia, unspecified iron deficiency anemia type; Gastroparesis; 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 12/26/2024 Travel 12/17/2024 9:30 AM ASSOCIATE BRAND MANAGER Clinical Support [facility] [address] [address] 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) 12/17/2024 Travel 12/12/2024 11:15 AM CDT Office Visit [facility] [address] [address] Blaise Jennings MD Iron deficiency anemia, unspecified iron deficiency anemia type (Primary Dx); Gastroparesis; 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 12/12/2024 11:00 AM CDT Lab [facility] [address] [address] Lab, [facility] [place] Gastroparesis 12/12/2024 Travel 12/07/2024 12:15 PM CDT Clinical Support [facility] [address] [address] 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) 12/07/2024 Travel 12/06/2024 Refill [facility] [address] [address] Lilliana Harrington, CROP [employer] GRAIN FARMWORKER, DITCHER Medication Refill 12/05/2024 Results Follow-Up [facility] [address] [address] Sheyla Jensen, RN MAGNESIUM (MG), CMP (COMPREHENSIVE METABOLIC PANEL) 12/04/2024 9:30 AM CDT Clinical Support [facility] [address] [address] Nurse, Cc [place] 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) 12/03/2024 1:00 PM CDT Clinical Support [facility] [address] [address] 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) 12/03/2024 12:30 PM CDT Office Visit [facility] [address] [phone] Lilliana Harrington, CROP OR GRAIN FARMWORKER, DITCHER 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); Gastroparesis; Nausea and vomiting, unspecified vomiting type 12/03/2024 Travel 12/03/2024 Telephone [facility] [address] [address] Blaise Jennings MD Canopy Call / Fluids 11/28/2024 11:15 AM CDT Clinical Support [facility] [address] [phone] Nurse, Cc [place] 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); Small cell carcinoma of right lung, unspecified part of lung 11/28/2024 10:15 AM CDT Office Visit [facility] [address] [phone] Blaise Jennings MD 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); Iron deficiency anemia, unspecified iron deficiency anemia type; 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 11/28/2024 10:00 AM CDT Lab [facility] [address] [address] Lab, Cc [place] 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; Iron deficiency anemia, unspecified iron deficiency anemia type; Gastroparesis 11/26/2024 10:00 AM CDT Clinical Support [facility] [address] [phone] Nurse, Cc [place] 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) 11/26/2024 Travel 11/23/2024 10:45 AM CDT Office Visit [facility] [address] [phone] Blaise Jennings MD 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); Iron deficiency anemia, unspecified iron deficiency anemia type; Gastroparesis 11/23/2024 10:10 AM CDT Lab [facility] [address] [address] Nurse, Cc [place] 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) 11/23/2024 Results Follow-Up [facility] [address] [phone] Steffany Graves RN MAGNESIUM (MG), CMP (COMPREHENSIVE METABOLIC PANEL) 11/20/2024 8:30 AM CDT Clinical Support [facility] [address] [phone] Nurse, Cc [place] 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) 11/20/2024 Travel 11/19/2024 8:30 AM CDT Clinical Support [facility] [address] [phone] Nurse, Cc [place] 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) 11/16/2024 10:00 AM CDT Office Visit [facility] [address] [address] Lyle Smart DO 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) 11/16/2024 9:45 AM CDT Lab [facility] [address] [address] Lab, Cc [place] Small cell carcinoma of right lung, unspecified part of lung; 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; 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; Other fatigue; Iron deficiency anemia, unspecified iron deficiency anemia type; Chemotherapy-induced nausea 11/16/2024 Telephone [facility] [address] [phone] Lyle Smart DO 11/16/2024 Travel from Last 3 Months Immunizations Immunization Administration Dates Next Due IMM GLOB HUMAN IV 12/17/2024,11/20/2024,11/20/19 25,07/20/2024,07/19/2024 Family History Relation Name Status Comments Brother Alive Father Mother Sister Social History Tobacco Use Types Packs/Day Years Used Date Smoking Tobacco: Every Day Cigarettes Smokeless Tobacco: Never Alcohol Use Standard Drinks/Week Comments Not Currently 0 (1 standard drink = 0.6 oz pur e alcohol) PHQ-2 Answer Date Recorded Total Score - Questions 1-9 19 04/15 Sexually Active Control Partners Comments Not Currently Comments Unknown Sex and Gender Information Value Date Recorded Sex Assigned at Not on file Legal Sex Female 3:55 PM CDT Gender Identity Not on file Sexual Orientation Not on file Last Filed Vital Signs Vital Sign Reading Time Taken Comments Blood Pressure 140/84 01/23/2025 11:29 AM ASSOCIATE BRAND MANAGER Pulse 81 01/23/2025 11:29 AM ASSOCIATE BRAND MANAGER Temperature 36.7 C (98 F) 01/23/2025 11:29 AM ASSOCIATE BRAND MANAGER Respiratory Rate 18 01/23/2025 11:29 AM ASSOCIATE BRAND MANAGER Oxygen Saturation 97% 01/23/2025 11:29 AM ASSOCIATE BRAND MANAGER Inhaled Oxygen Concentration - - Weight 38.1 kg (84 lb) 01/23/2025 11:29 AM ASSOCIATE BRAND MANAGER Height 154.9 cm (5' 1) 01/23/2025 11:29 AM ASSOCIATE BRAND MANAGER Body Mass Index 15.87 01/23/2025 11:29 AM ASSOCIATE BRAND MANAGER Plan of Treatment Upcoming Encounters Date Type Department Care Team (Late st Contact Info) Description 02/20/2025 11:00 AM ASSOCIATE BRAND MANAGER Clinical Support [facility] [address] [phone] 02/20/2025 11:15 AM ASSOCIATE BRAND MANAGER Office Visit [facility] [address] [phone] Blaise Jennings MD [address] [place] [phone] 06/11/2025 9:00 AM CDT Ancillary Procedure [facility] [address] [address] Health Maintenance Due Date Last Done Comments Diabetes: Eye Exam 1964 Diabetes: Foot Exam 1964 Hepatitis C Virus (HCV) Screening 1965 TdaP Immunization 1964 HPV/Cotest 1994 Cologuard 2009 Immunochemical Fecal Occult Blood 2009 Respiratory Syncytial Virus (RSV) Immunization (Adult) (1 - Risk 50-74 years 1-dose series) 2014 Pneumococcal Immunization (50+ years) (2 of 2 - PCV) 02/15/2016 02/14/2015 Mammogram 08/04/2024 08/05/2023, 07/16, 09/18/2020, Additional history exists Diabetes: Hemoglobin A1c 06/13/2025 12/14/2024, 04/14 SARS-COV-2 Immunization (9 - Pfizer risk 2024- season) 2025 12/19/2024, 11/12/2023, 11/20/2022, Additional history exists Diabetes: Nephropathy Screening 01/23/2026 01/23/2025, 01/09/2025, 12/26/2024, Additional history exists Cervical Cancer Screening (CCS) 06/06/2027 Pap Smear 06/06/2027 06/05/2024, 03/17/2017 Colonoscopy 04/09/2034 04/09/2024 Colorectal Cancer Screening 04/09/2034 Zoster Immunization Completed 01/24/2023, Influenza Immunization Completed , 11/12/2023, 12/05/2021, Additional history exists Hepatitis B Immunization Aged Out No longer eligible based on patient's age to complete this topic Human Papillomavirus (HPV) Immunization (No Doses Required) Completed Meningococcal Immunization (ACWY) Aged Out No longer eligible based on patient's age to complete this topic Rotavirus Immunization Aged Out No lo nger eligible based on patient's age to complete this topic Procedures Procedure Name Priority Date/Time Associated Diagnosis Comments COMPLETE BLOOD COUNT (CBC) WITH DIFF Routine 01/23/2025 11:15 AM ASSOCIATE BRAND MANAGER 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 Other fatigue CMP (COMPREHENSIVE METABOLIC PANEL) Routine 01/23/2025 11:15 AM ASSOCIATE BRAND MANAGER 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 Other fatigue LACTATE DEHYDROGENASE (LD) Routine 01/23/2025 11:15 AM ASSOCIATE BRAND MANAGER 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 Other fatigue THYROXINE (T4) FREE Routine 01/23/2025 1 1:15 AM ASSOCIATE BRAND MANAGER 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 Other fatigue THYROID STIMULATING HORMONE (TSH) Routine 01/23/2025 11:15 AM ASSOCIATE BRAND MANAGER 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 Other fatigue COMPLETE BLOOD COUNT (CBC) WITH DIFF Routine 01/09/2025 10:58 AM ASSOCIATE BRAND MANAGER 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 CMP (COMPREHENSIVE METABOLIC PANEL) Routine 01/09/2025 10:58 AM ASSOCIATE BRAND MANAGER 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 LACTATE DEHYDROGENASE (LD) Routine 01/09/2025 10:58 AM ASSOCIATE BRAND MANAGER 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 CMP (COMPREHENSIVE METABOLIC PANEL) Routine 12/26/2024 9:54 AM ASSOCIATE BRAND MANAGER Iron deficiency anemia, unspecified iron deficiency anemia type Gastroparesis 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 COMPLETE BLOOD COUNT (CBC) WITH DIFF Routine 12/26/2024 9:54 AM ASSOCIATE BRAND MANAGER Iron deficiency anemia, unspecified iron deficiency anemia type Gastroparesis 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 LACTATE DEHYDROGENASE (LD) Routine 12/26/2024 9:54 AM ASSOCIATE BRAND MANAGER Iron deficiency anemia, unspecified iron deficiency anemia type Gastroparesis 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 MAGNESIUM (MG) Routine 12/26/2024 9:54 AM ASSOCIATE BRAND MANAGER Iron deficiency anemia, unspecified iron deficiency anemia type Gastroparesis 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 COMPLETE BLOOD COUNT (CBC) WITH DIFF Routine 12/12/2024 10:56 AM CDT Gastroparesis CMP (COMPREHENSIVE METABOLIC PANEL) Routine 12/12/2024 10:56 AM CDT Gastroparesis VITAMIN B12 Routine 12/12/2024 10:56 AM CDT Gastroparesis FOLIC ACID (FOLATE) Routine 12/12/2024 1 0:56 AM CDT Gastroparesis FERRITIN Routine 12/12/2024 10:56 AM CDT Gastroparesis IRON W/ IRON BINDING CAPACITY [place] Routine 12/12/2024 10:56 AM CDT Gastroparesis RETICULOCYTE COUNT (RETIC) Routine 12/12/2024 10:56 AM CDT Gastroparesis CMP (COMPREHENSIVE METABOLIC PANEL) Routine 12/03/2024 1:24 PM CDT 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 MAGNESIUM (MG) Routine 12/03/2024 1:24 PM CDT 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 COMPLETE BLOOD COUNT (CBC) WITH DIFF Routine 11/28/2024 10:04 AM CDT 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 Iron deficiency anemia, unspecified iron deficiency anemia type Gastroparesis CMP (COMPREHENSIVE METABOLIC PANEL) Routine 11/28/2024 10:04 AM CDT 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 Iron deficiency anemia, unspecified iron deficiency anemia type Gastroparesis LACTATE DEHYDROGENASE (LD) Routine 11/28/2024 10:04 AM CDT 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 Iron deficiency anemia, unspecified iron deficiency anemia type Gastroparesis MAGNESIUM (MG) Routine 11/28/2024 10:04 AM CDT 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 Iron deficiency anemia, unspecified iron deficiency anemia type Gastroparesis COMPLETE BLOOD COUNT (CBC) WITH DIFF Routine 11/23/2024 10:55 AM CDT 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 CMP (COMPREHENSIVE METABOLIC PANEL) Routine 11/23/2024 10:55 AM CDT 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 MAGNESIUM (MG) Routine 11/23/2024 10:55 AM CDT 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 COMPLETE BLOOD COUNT (CBC) WITH DIFF Routine 11/16/2024 9:45 AM CDT Small cell carcinoma of right lung, unspecified part of lung 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 Other fatigue Iron deficiency anemia, unspecified iron deficiency anemia type Chemotherapy-induce d nausea CMP (COMPREHENSIVE METABOLIC PANEL) Routine 11/16/2024 9:45 AM CDT Small cell carcinoma of right lung, unspecified part of lung 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 Other fatigue Iron deficiency anemia, unspecified iron deficiency anemia type Chemotherapy-induce d nausea LACTATE DEHYDROGENASE (LD) Routine 11/16/2024 9:45 AM CDT Small cell carcinoma of right lung, unspecified part of lung 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 Other fatigue Iron deficiency anemia, unspecified iron deficiency anemia type Chemotherapy-induce d nausea THYROID STIMULATING HORMONE (TSH) Routine 11/16/2024 9:45 AM CDT Small cell carcinoma of right lung, unspecified part of lung 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 Other fatigue Iron deficiency anemia, unspecified iron deficiency anemia type Chemotherapy-induce d nausea THYROXINE (T4) FREE Routine 11/16/2024 9 :45 AM CDT Small cell carcinoma of right lung, unspecified part of lung 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 THYROXINE (T4), FREE, 0.87 0.61 - 1.12 ng/dL [facility] Blood 01/23/2025 11:1 5 AM ASSOCIATE BRAND MANAGER [facility] - 01/24/2025 2:53 PM ASSOCIATE BRAND MANAGER Release to patient->Immediate Lilliana Harrington APRN, DITCHER CHEMISTRY ORDERABLES Final Result Performing Organization Address [facility] Co de Phone Number [facility] [place] [address], * THYROID STIMULATING HORMONE (TSH) (01/23/2025 11:15 AM ASSOCIATE BRAND MANAGER) Only the most recent of2 resultswithin the time period is included. TSH 1.02 0.45 - 5.33 uIU/mL [facility] Blood 01/23/2025 11:1 5 AM ASSOCIATE BRAND MANAGER [facility] - 01/24/2025 2:53 PM ASSOCIATE BRAND MANAGER Release to patient->Immediate Lilliana Harrington APRN, DITCHER CHEMISTRY ORDERABLES Final Result Performing Organization Address [facility] Co de Phone Number [facility] [place] [address], * LACTATE DEHYDROGENASE (LD) (01/23/2025 11:15 AM ASSOCIATE BRAND MANAGER) Only the most recent of5 resultswithin the time period is included. LDH 154 140 - 271 U/L [facility] Blood 01/23/2025 11:1 5 AM ASSOCIATE BRAND MANAGER Narrative [facility] - 01/23/2025 12:08 PM ASSOCIATE BRAND MANAGER Release to patient->Immediate Lilliana Harrington APRN, LUAN CHEMISTRY ORDERABLES Final Result [facility] [place] [address], * (ABNORMAL) CMP (COMPREHENSIVE METABOLIC PANEL) (01/23/2025 11:15 AM ASSOCIATE BRAND MANAGER) Only the most recent of8 resultswithin the time period is included. Glucose 99 70 - 105 mg/dL [facility] Blood Urea Nitrogen 17 7 - 25 mg/dL [facility] Creatinine 0.4(L) 0.6 - 1.2 mg/dL [facility] Sodium 134(L) 136 - 145 mEq/L [facility] Potassium 3.6 3.5 - 5.1 mEq/L [facility] Chloride 103 98 - 107 mEq/L [facility] Bicarbonate 25 21 - 31 mEq/L [facility] Total Bilirubin 0.3 0.3 - 1.0 mg/dL [facility] Alk. Phosphatase 49 34 - 104 U/L [facility] Aspartate Aminotransferase 8(L) 13 - 39 U/L [facility] Alanine Aminotransferase 6(L) 7 - 52 U/L [facility] Total Protein 6.2(L) 6.4 - 8.9 g/dL [facility] Albumin 3.9 3.5 - 5.7 g/dL [facility] Calcium 8.9 8.6 - 10.3 mg/dL [facility] Anion Gap 9.6 7.0 - 15.0 mEq/L [facility] Globulin 2.3 2.0 - 3.5 g/dL [facility] EGFR 113 >60 ml/min/1. 73m2 [facility] ANIMAL HUSBANDRY MANAGER [facility] Comment: This eGFR is calculated using 2020 CKD-EPI Creatinine equation without race modifier based on the NKF-ASN task force recommendations Equation: uOFO=690*min(SCr/k,1)a*max(SCr/k,1)-1.200*0.9938Age*1.012 (if female), where SCr is serum creatinine, k is 0.7 for females and 0.9 for males, and a is -0.241 for females and -0.302 for males Blood 01/23/2025 11:1 5 AM ASSOCIATE BRAND MANAGER Narrative [facility] - 01/23/2025 12:08 PM ASSOCIATE BRAND MANAGER Release to patient->Immediate IS THE PATIENT REQUIRED TO BE FASTING FOR 8 HOURS?->No Lilliana Harrington APRN, DITCHER CHEMISTRY ORDERABLES Final Result [facility]DRY [facility] [place] [address], * (ABNORMAL) COMPLETE BLOOD COUNT (CBC) WITH DIFF (01/23/2025 11:15 AM ASSOCIATE BRAND MANAGER) Only the most recent of7 resultswithin the time period is included. WBC 9.2 4.0 - 10.0 10*3/uL [facility] HGB 13.1 11.2 - 15.7 g/dL [facility] HCT 38.8 34.1 - 44.9 % [facility] PLT 382(H) 163 - 369 10*3/uL [facility] MPV 8.5(L) 9.4 - 12.4 fL [facility] RBC 4.11 3.93 - 5.22 10*6/uL [facility]DRY [facility] MCV 94 79 - 95 fL [facility]ANDRY [facility] MCH 31.9 25.6 - 32.2 pg [facility]USBANDRY [facility] MCHC 33.8 32.2 - 36.5 g/dL [facility]ANDRY [facility] RDW 14.8(H) 11.6 - 14.4 % [facility] Absolute Neutrophil Count 7,644 cells/uL [facility] Absolute Seg Count 7,644(H) 1,440 - 6,600 cells/uL [facility] Absolute Lymph Count 645(L) 760 - 4,000 cells/uL [facility]ANDRY [facility] Absolute Grant Count 737 160 - 1,200 cells/uL [facility] Absolute Eos Count 184 0 - 300 cells/uL [facility] Segmented Neutrophils 83(H) 36 - 66 % [facility] Lymphocytes 7(L) 19 - 40 % [facility] Monocytes 8 4 - 12 % [facility] Eosinophils 2 0 - 3 % [facility] WBC Estimate Normal [facility] Platelet Estimate High [facility] RBC Morphology Normal [facility]DRY [facility] Blood 01/23/2025 11:1 5 AM ASSOCIATE BRAND MANAGER Narrative [facility] - 01/23/2025 1:53 PM ASSOCIATE BRAND MANAGER Release to patient->Immediate Lilliana Harrington APRN, DITCHER HEMATOLOGY ORDERABLES Final Result [facility]AL [facility]Y [facility] Cancer Care [facility] [address] [place] [address], [place] [phone] * MAGNESIUM (MG) (12/26/2024 9:54 AM ASSOCIATE BRAND MANAGER) Only the most recent of4 resultswithin the time period is included. Magnesium 2.4 1.9 - 2.7 mg/dL [facility] Blood 12/26/2024 9:54 AM ASSOCIATE BRAND MANAGER Narrative [facility] ANIMAL [facility]ANDRY [facility] - 12/26/2024 11:01 AM ASSOCIATE BRAND MANAGER Release to patient->Immediate us Blaise Jennings MD CHEMISTRY ORDERABLES Final Result [facility] Cancer Care [facility] [address] [place] [address], [place] [phone] * (ABNORMAL) IRON W/ IRON BINDING CAPACITY [place] (12/12/2024 10:56 AM CDT) IRON 55 50 - 212 ug/dL [facility] ANIMAL HUSBANDRY [facility] UIBC 273 155 - 355 ug/dL [facility] ANIMAL HUSBANDRY [facility] TIBC 328 261 - 478 ug/dl [facility] ANIMAL HUSBANDRY [facility] % Saturation 17(L) 20 - 50 % [facility] ANIMAL HUSBANDRY [facility] 12/12/2024 10:5 6 AM CDT [facility] - 12/12/2024 11:46 AM CDT Release to patient->Immediate us Blaise Jennings MD LAB SEND OUTS Final Resul t [facility]IMAL H[facility]ANDRY [facility] Cancer [facility] [address] [place] [address], * VITAMIN B12 (12/12/2024 10:56 AM CDT) Vitamin B12 390 180 - 914 pg/mL [facility] ANIMAL HUSBANDRY [facility]GER [facility] Blood 12/12/2024 10:5 6 AM CDT [facility]AL [facility] - 12/13/2024 3:00 PM CDT Release to patient->Immediate us Blaise Jennings MD CHEMISTRY ORDERABLES Final Result Performing Organization Address City/[facility] Co de Phone Number [facility] Cancer Care [facility] [address] [place] [address], [place] [phone] * RETICULOCYTE COUNT (RETIC) (12/12/2024 10:56 AM CDT) Reticulocyte count 0.79 0.50 - 1.70 % [facility] ANIMAL HUSBANDRY [facility] RET-He 36.00 28.20 - 36.60 pg [facility] ANIMAL HUSBANDRY [facility] Comment: RET-He is a direct assessment of incorporation of iron into erythrocyte hemoglobin. It provides an indirect measure of the iron available for new erythropoiesis over past 2-4 days. Blood 12/12/2024 10:5 6 AM CDT [facility] ANIMAL [facility]DRY [facility] - 12/12/2024 11:05 AM CDT Release to patient->Immediate us Blaise Jennings MD HEMATOLOGY ORDERABLES Final Result Performing Organization Address [facility] Co de Phone Number [facility] Cancer Care [address] [place] [address], [place] [phone] * FOLIC ACID (FOLATE) (12/12/2024 10:56 AM CDT) Folate 7.45 >=5.90 ng/mL [facility] Blood 12/12/2024 10:5 6 AM CDT [facility] ANIMAL [facility]DRY [facility] - 12/13/2024 3:00 PM CDT Release to patient->Immediate IS THE PATIENT REQUIRED TO BE FASTING FOR 12 HOURS?->No us Blaise Jennings MD CHEMISTRY ORDERABLES Final Result Performing Organization Address [facility] Co de Phone Number [facility]AL [facility]Y [facility] Cancer Care [address] [place] [address], [place] [phone] * FERRITIN (12/12/2024 10:56 AM CDT) Ferritin 49 11 - 307 ng/mL [facility] Blood 12/12/2024 10:5 6 AM CDT [facility] ANIMAL [facility]DRY [facility] - 12/13/2024 3:00 PM CDT Release to patient->Immediate us Blaise Jennings MD CHEMISTRY ORDERABLES Final Result Performing Organization Address [facility] Co de Phone Number [facility] AN[facility]AL [facility]DRY [facility] Cancer Care [address] [address], [place] [phone] from Last 3 Months Insurance [facility] Care Teams Kennel Keeper Relationship Specialty Start Date End Date Hien Cunningham MD [address] [address] PCP - General Internal Medicine 04/30/24 Blaise Jennings MD [address] [place] [phone] Consulting Physician Oncology 04/30/24
--- OUTSIDE RECORDS SUMMARY | 2025-02-08 00:30 | XMS_ITS | Encounter Summary ---
Author Organization [facility] Address [facility] [place] [address] Care Team Providers Care Entry Level Truck Driver Name Role Phone Hien Cunningham MD Primary Care Provider [phone] Pawel Neil MD Unavailable [phone] Gemma Reed MD Unavailable [phone] Suhas Canada DO Unavailable Blaise Jennings MD Unavailable [phone] Ant Hernandez MD Unavailable Encounter Details Date Type Department Care Team (Late st Contact Info) Description 11/17/2021 Simris Alg Message Enc [facility] Medical Group Family Medicine - [place] [address] [facility], [address] [place] [phone] [facility] Provider Knee pain Social History Tobacco Use Types Packs/Day Years [...] please move on to questions 3-9 0 09/14/2021 Comments No Sex and Gender Information Value Date Recorded Sex Assigned at Female 03/06/2024 7:21 AM VICE PRESIDENT PAYER Legal Sex Female 7:54 PM CDT Gender Identity Not on file Sexual Orientation Not on file documented as of this encounter Plan of Treatment Upcoming Encounters Date Type Department Care Team (Late st Contact Info) Description 02/18/2025 12:00 PM VICE PRESIDENT PAYER Office Visit [facility] Family Medicine - [place] [address] [facility], [address] [place] [address] Hien Cunningham MD [address] [facility] [address] [place] [phone] 06/11/2025 10:30 AM CDT Appointment [facility] Radiation Oncology [address] [place] [address] Ant Hernandez MD 210 [facility] [address] [place], [place] [phone] 07/24/2025 8:20 AM CDT Office Visit [facility] Medical [facility] Pulmonology Specialty Clinic - [address] [place] [address] Krzysztof Molina MD [address] [address] documented as of this encounter Visit Diagnoses Not on filedocumented in this encounter Additional Health Concerns Infection Onset Date Last Indicated Resolved Time COVID-19 Rule Out 12/20/2022 12/20/2022 12/20/2022 11:11 AM VICE PRESIDENT PAYER COVID-19 Rule Out 01/29/2023 01/29/2023 01/29/2023 4:04 PM VICE PRESIDENT PAYER COVID-19 Rule Out 03/03/2023 03/03/2023 03/03/2023 9:58 AM VICE PRESIDENT PAYER Tuberculosis Rule-Out 06/05/2024 06/05/20242024 1:25 PM CDT 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 06/08/24 +MRSA sputum 06/05/2024 06/08/2024 Assessment Noted Time PHQ-9 Depression Total Score: 0 01/13/20 21 7:20 AM VICE PRESIDENT PAYER documented as of this encounter Care Teams Entry Level Truck Driver Relationship Specialty Start Date End Date Hien Cunningham MD [address] [facility] [address] [place] [phone] PCP - General FAMILY PRACTICE 10/13/17 Pawel Neil MD Three [facility] [address] [place], [place] [address] Consulting Physician CARDIOVASCULAR DISEASE 05/29/24 Gemma Reed MD [address] [place] [address] GASTROENTEROLOGY 05/29/24 Suhas Canada DO 3 [facility] [address] [place] [phone] Resident GASTROENTEROLOGY 05/29/24 Blaise Jennings MD [address] [place] [address] [address] [place] [phone] Medical Oncologist HEMATOLOGY/ONCOLOGY 05/29/24 Ant Hernandez MD 1 [place] [address] Consulting Physician RADIATION ONCOLOGY 06/18/24 documented as of this encounter
--- OUTSIDE RECORDS SUMMARY | 2025-02-08 00:30 | XMS_ITS | Encounter Summary ---
Author Organization [facility] Address [facility] [place] [address] Care Team Providers Care Final Assembly Worker Name Role Phone Hien Cunningham MD Primary Care Provider [phone] Pawel Neil MD Unavailable [phone] Gemma Reed MD Unavailable [phone] Suhas Canada DO Unavailable Blaise Jennings MD Unavailable [phone] Ant Hernandez MD Unavailable Encounter Details Date Type Department Care Team (Late st Contact Info) Description 05/29/2024 MyChart Message Enc [facility] Medical Group Family Medicine - [place] [address] [facility], [address] [place] [address] Hien Cunningham MD [address] [facility] [address] [place] [address] Disablity Social History Tobacco Use Types Packs/Day Years Used Date Smoking Tobacco: Some Days Cigarettes 1 51 Started: 1974 Passive Smoke Exposure: Current Smokeless Tobacco: Never Comments:On average smoked 1 ppd for 50 years. As of 05/29/24 - smoking 3-5 cigarettes/week. Alcohol Use Standard Drinks/Week Comments Not Currently 0 (1 standard drink = 0.6 oz pur e alcohol) [facility] Utilities Answer Date Recorded In the [...] place to sleep or slept in a assisted (including now)? No 01/29/2023 Comments No Sex and Gender Information Value Date Recorded Sex Assigned at Female 03/06/2024 7:21 AM CURING BIN OPERATOR Legal Sex Female 7:54 PM CDT Gender [...] Santiago RN Active documented in this encounter Progress Notes * Hien Cunningham MD - 05/29/2024 4:11 PM CDT Yes, Talia I can definitely do this. Will the company be sending us new forms? I am so sorry to hearabout the new lung findings. Dr. Molina is excellent and you have already seen Dr. Jennings. He is an excellent oncologist. The specialist are very good at keeping me updated. Let me know if you needanything else. documented in this encounter Plan of Treatment Upcoming Encounters Date Type Department Care Team (Late st Contact Info) Description 02/18/2025 12:00 PM CURING BIN OPERATOR Office Visit [facility] Family Medicine - [place] [address] [facility], [address] [place] [phone] Hien Cunningham MD [address] [facility] [address] [place] [phone] 06/11/2025 10:30 AM CDT Appointment [facility] Radiation Oncology [address] [place] [address] [place] [address] Ant Hernandez MD [address] [place] [address] [address] [place] [address] 07/24/2025 8:20 AM CDT Office Visit [facility] Medical [facility] Pulmonology Specialty Clinic - [address] [place] [address] Krzysztof Molina MD 3 [facility] [address] [place], [place] [phone] documented as of this encounter Visit Diagnoses Not on filedocumented in this encounter Additional Health Concerns Infection Onset Date Last Indicated Resolved Time Tuberculosis Rule-Out 06/05/2024 06/05/20242024 1:25 PM CDT 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 06/08/24 +MRSA sputum 06/05/2024 06/08/2024 Assessment Noted Time PHQ-9 Depression Total Score: 14 025 11:48 AM CURING BIN OPERATOR documented as of this encounter Care Teams Final Assembly Worker Relationship Specialty Start Date End Date Hien Cunningham MD [address] [facility] [address] [place] [phone] PCP - General FAMILY PRACTICE 10/13/17 Pawel Neil MD Three [facility] [address] [place] [address] Consulting Physician CARDIOVASCULAR DISEASE 05/29/24 Gemma Reed MD [address] [place] [address] GASTROENTEROLOGY 05/29/24 Suhas Canada DO 3 [facility] [address] [place] [phone] Resident GASTROENTEROLOGY 05/29/24 Blaise Jennings MD [address] [place] [address] [address] [place] [phone] Medical Oncologist HEMATOLOGY/ONCOLOGY 05/29/24 Ant Hernandez MD 1 [place] [address] Consulting Physician RADIATION ONCOLOGY 06/18/24 documented as of this encounter
--- OUTSIDE RECORDS SUMMARY | 2025-02-08 00:30 | XMS_ITS | Encounter Summary ---
Author Organization [facility] Healthcare Address [address] [place] [address] Care Team Providers Care Over Hauler Helper Name Role Phone Hien Cunningham MD Primary Care Provider Encounter Details Date Type Department Care Team (Late st Contact Info) Description 12/20/2024 Results Follow-Up Neurology Rodrick Cespedes MD [address] [address] Neuromuscular Testing Blood Social History Tobacco Use Types Packs/Day Years Used Date Smoking Tobacco: Every Day Cigarettes Smokeless Tobacco: Never Comments:10 cigarettes a day - she didn't want info Alcohol Use Standard Drinks/Week Comments Yes 0 (1 standard drink = 0.6 oz pur e alcohol) AUDIT-C Answer Date Recorded Q1: How often do you have a drink containing alcohol? Never 05/21/2024 Q2: How many drinks containi ng alcohol do you have on a typical day when you are drinking? Patient does not drink Q3: How often do you have si x or more drinks on one occasion? Never 05/21/2024 Personal Safety Answer Date Recorded Have you ever been in or are you currently in a harmful physical or emotional relationship or is someone making you feel afraid or unsafe? Denies 04/09/2024 Comments No Sex and Gender Information Value Date Recorded Sex Assigned at Not on file Legal Sex Female 10:16 PM LACQUER PIN PRESS OPERATOR Gender Identity Not on file Sexual Orientation Not on file documented as of this encounter Plan of Treatment Not on file documented as of this encounter Visit Diagnoses Not on filedocumented in this encounter Care Teams Over Hauler Helper Relationship Specialty Start Date End Date Hien Cunningham MD [address] [facility] [address] [place] [address] PCP - General Family Medicine 07/18/18 documented as of this encounter
--- OUTSIDE RECORDS SUMMARY | 2025-02-08 00:30 | XMS_ITS | Encounter Summary ---
Author Organization [facility] Address [facility] [place] [address] Care Team Providers Care Buyer Internship Name Role Phone Hien Cunningham MD Primary Care Provider Pawel Neil MD Unavailable [phone] Gemma Reed MD Unavailable [phone] Suhas Canada DO Unavailable Blaise Jennings MD Unavailable [phone] Ant Hernandez MD Unavailable Encounter Details Date Type Department Care Team (Late st Contact Info) Description 03/28/2024 MyChart Message Enc [facility] Medical Group Family Medicine - [place] [address] [facility] [place] [address] Hien Cunningham MD [address] [facility] [address] [place] [address] Gastroparesis Social History Tobacco Use [...] oz pure alcohol) only on weekends with [employer] [facility] Utilities Answer Date Recorded In the past [...] place to sleep or slept in a skilled nursing (including now)? No 01/29/2023 Comments No Sex and Gender Information Value Date Recorded Sex Assigned at Female 03/06/2024 7:21 AM PLANT PHYSIOLOGY TEACHER Legal Sex Female 7:54 PM CDT Gender [...] st Contact Info) Description 02/18/2025 12:00 PM PLANT PHYSIOLOGY TEACHER Office Visit [facility] Medical Group Family Medicine - [place] [address] [facility] [place] [address] Hien Cunningham MD [address] [facility] [address] [place] [phone] 06/11/2025 10:30 AM CDT Appointment [facility] Radiation Oncology [address] [place] [address] Ant Hernandez MD 210 [facility] [address] [place] [address] 07/24/2025 8:20 AM CDT Office Visit [facility] Medical Group Pulmonology Specialty Clinic - 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 [facility] [address] [place], [place] [address] Consulting Physician CARDIOVASCULAR DISEASE 05/29/24 Gemma Reed MD [address] [place] [address] GASTROENTEROLOGY 05/29/24 Suhas Canada DO [address] [address] Resident GASTROENTEROLOGY 05/29/24 Blaise Jennings MD [address] [place] [phone] Medical Oncologist HEMATOLOGY/ONCOLOGY 05/29/24 Ant Hernandez MD 1 [place] [address] Consulting Physician RADIATION ONCOLOGY 06/18/24 documented as of this encounter
--- OUTSIDE RECORDS SUMMARY | 2025-02-08 00:30 | XMS_ITS | Clinical Summary ---
Author Organization [facility] Address [address] [place] [address] Care Team Providers Care Senior Physical Therapist Name Role Phone Hien Cunningham MD Primary Care Provider Allergies Active Allergy Reactions Criticality Noted Date Comments Doxycycline Rash Medium 04/09/2019 Penicillins Other (See comments),Unknown Low 05/10/2017 Told as child Told as child Told as child Told as child Told as child Told as child Told as child Told as child Sulfamethoxazole-Trimet hoprim Rash High 04/10/2019 Varenicline Other (See comments) Low 11/03/2017 sucidal thoughts sucidal thoughts sucidal thoughts Medications cetirizine (ZyrTEC) 10 mg tablet Take 1 tablet (10 mg total) by mouth Active TRELEGY ELLIPTA 100-62.5-25 mcg blister with device INL 1 PUFF PO D 11 9 Active Ventolin HFA 90 mcg/actuation inhaler 0 Active aspirin 81 mg chewable tablet Take 1 tablet (81 mg total) by mouth daily 8 Active buPROPion XL (WELLBUTRIN XL) 150 mg 24 hr tablet 2 Active omeprazole (PriLOSEC) 20 mg capsuleIndications :Bilious vomiting with nausea Take 1 capsule (20 mg total) by mouth 2 (two) times a day before breakfast and dinner 60 capsule 2 5 Active ondansetron ODT (ZOFRAN-ODT) 4 mg disintegrating tabletIndications: Nausea and vomiting, unspecified vomiting type Take 1 tablet (4 mg total) by mouth every 8 (eight) hours as needed for nausea or vomiting 20 tablet 3 5 Active potassium chloride ER 20 mEq CR tablet Take 1 tablet (20 mEq total) by mouth daily 5 Active prochlorperazine (COMPAZINE) 10 mg tablet Take 1 tablet (10 mg total) by mouth every 4 (four) hours as needed for nausea 5 Active busPIRone (BUSPAR) 5 mg tabletIndications: Gastroparesis Take 1 tablet (5 mg total) by mouth 3 (three) times a day before meals 90 tablet 3 5 Active fluconazole (DIFLUCAN) 100 mg tablet 5 Active pregabalin (LYRICA) 75 mg capsule Take 1 capsule (75 mg total) by mouth 2 (two) times a day 60 capsule 5 5 05/09/19 26 Active prucalopride (MOTEGRITY) 2 mg tabletIndications: Chronic idiopathic constipation Take 1 tablet (2 mg total) by mouth daily 90 tablet 5 Active Active Problems Problem Noted Date Diagnosed Date Anemia 03/29/2024 Gastroparesis 03/29/2024 Assessment & Plan (03/29/2024 2:35 PM 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 SPECIALIST): The patient presents to the GI office with a new diagnosis of likely diabetic gastroparesis with associated unintentional weight loss and chronic constipation in the setting of microcytic hypochromic anemia. She was educated on dietary modification, optimization of glycemic control, hydration, and due to her persistent symptoms, pharmacologic therapy with prokinetic and antiemetics as described below: -Gastroparesis diet (refer to Nutrition) -Educated to avoid foods that are fatty, acidic, spicy, and roughage-based as they will increase overall symptoms -Educated to consume small, frequent meals four to five times a day that are low in fat and contain only soluble fiber -If unable to tolerate solid food, can homogenize meals -Avoid carbonated beverages -Avoid alcohol -Quit smoking tobacco and marijuana with the assistance of your PCP -Vitamins: checking iron studies, vitamin B12/folate -She can use zofran as an anti-emetic moving forward if needed -She is currently taking reglan, she will try to wean off the reglan if possible. Extrapyramidal side effects explained including irreversible side effects. -Tobacco cessation counseling provided for over 3 minutes while explaining the pathophysiology in relation to gastroparesis. -Colonoscopy with extended prep (2 gallons GoLYTELY over 2 days) given the weight loss and anemia. -Labs -Try to minimize/wean off Reglan -MiraLax twice daily -Stay well hydrated -Could consider Motegrity in the future if needed to further optimize her bowel habits. Weight loss 03/29/2024 Bilious vomiting with nausea 02/14/2024 Tobacco abuse 08/27/2021 Type 2 diabetes mellitus wit hout complication, without long-term current use of insulin 06/08/2021 Chest pain 10/31/2019 TYLER (dyspnea on exertion) 10/31/2019 Family history of early CAD 10/31/2019 Breast cancer screening 09/13/2019 COPD, moderate 11/28/2017 Nicotine dependence 10/14/2017 Glaucoma 10/13/2017 Overview (10/31/2019): Description: [facility] [place] Mild major depression, single episode 10/13/2017 Obstructive sleep apnea syndrome 10/13/2017 Overview (10/31/2019): Description: uses CPAP, Dr. Hernandez Postmenopausal 10/13/2017 Overview (10/31/2019): Description: LMP 05/2013 Vulvar carcinoma 10/13/2017 Overview (10/31/2019): Description: sees Dr. Mariana Cantor, gets paps yearly there At risk for breast cancer 06/25/2016 Cervical dysplasia 03/26/2015 Vulvar intraepithelial neoplasia (CLEM) grade 3 0 09/14/2011 Vulvar intraepithelial neoplasia III (CLEM III) 0 09/14/2011 Genetic predisposition to disease 03/25/2011 Genetic susceptibility to malignant neoplasm of breast 03/25/2011 Hypertension 12/16/2009 Hyperlipidemia 12/16/2009 Encounter for preventive health examination 08/15 Resolved Problems Problem Noted Date Diagnosed Date Resolved Date Essential hypertension 10/31/201911/11 Encounters Date Type Department Care Team Description 01/13/2025 11:56 PM 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 SPECIALIST - 01/14/2025 6:55 AM 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 SPECIALIST Emergency [facility] Emergency Department [address] [place] [id number] eFlice Rodrigez MD PhD Slow transit constipation (Primary Dx); Abdominal pain, unspecified abdominal location Discharge Disposition: Discharge to home or self care 12/20/2024 Results Follow-Up Neurology Rodrick Cespedes MD Neuromuscular Testing Blood 11/30/2024 Telephone [facility] Medicine Gastroenterology [address] [place] [address] Nina Razo RN IOV scheduling 11/09/2024 5:30 PM CDT Lab [place] [facility] ([facility]) [address] [place] [address] ANNA1 antibody positive; Numbness and tingling; Weakness 11/09/2024 4:30 PM CDT Office Visit [facility] Medicine Neuro Muscle [address] 6[address] [place] [address] [place] [address] Rodrick Cespedes MD ANNA1 antibody positive (Primary Dx); Numbness and tingling; Weakness from Last 3 Months Immunizations Immunization Administration Dates Next Due Influenza, Quadrivalent, Spl it, Preservative Free, Intramuscular 2020,11/14/2016 Influenza, Trivalent, IM (MDV) 11/16/2017 Influenza, Unspecified 12/05/2021 Moderna Sars-cov-2 Bivalent Vaccine 50 Mcg/0.5 mL (12+ YRS)-Blue/Tanner 12/05/2021 Pfizer SARS-CoV-2 Monovalent Vaccination (12+ Yrs) PURPLE 07/04/2021 Pneumococcal Polysaccharide PPV23 02/14/2015 ZOSTER Recombinant 11/20/2022 Surgical History Surgery Date Site/Laterality Comments VULVECTOMY x 2 Vulvectomy - (Added by TW Conv) NV DILATION & CURETTAGE DX&/ THER NONOBSTETRIC Dilation And Curettage - (Added by TW Conv) NV LIG/TRNSXJ FLP TUBE ABDL/ VAG APPR UNI/BI Tubal Ligation - (Added by Conv) SINUS SURGERY Sinus Surgery - (Added by Conv) NV TONSILLECTOMY PRIMARY/SECONDARY <AGE 12 Tonsillectomy - (Added by Conv) COLONOSCOPY Complete Colonoscopy - (Added by Conv) HAND SURGERY Right carpal tunnel SPINE SURGERY neck Medical History Medical History Date Comments Personal history of other sp ecified conditions History of headache - (Added by Conv) Encounter for screening mamm ogram for malignant neoplasm of breast Visit for screening mammo gram - done 03/2011 results normal (Added by Conv) Complete or unspecified spon taneous without complication - (Added by Conv) Other specified symptom asso ciated with female genital organs Vulvar Lump Or Mass - (Added by Conv) Personal history of other di seases of the nervous system and sense organs History of sleep apnea - (Added by Conv) Type 2 diabetes mellitus Hypertension Hyperlipidemia Urinary tract infection Colon polyp GERD (gastroesophageal reflux disease) Constipation Kidney stone Depression Chronic constipation Sleep apnea Family History Medical History Relation Name Comments COPD Father Chronic Obstruc tive Pulmonary Disease - (Added by Conv) Diabetes Father Diabetes Mellit us - (Added by Conv) Heart failure Father Congestive Hea rt Failure - (Added by Conv) Breast cancer Mother Breast Cancer - (Added by Conv) Colon cancer Other 1 Malignant Neopl asm, Colon - (Added by Conv) Colon cancer Other 2 Family history of colon cancer - Relation: Aunt (Added by Conv) Alcohol abuse Sister 1 Alcohol addict ion - (Added by Conv) Colon polyps Sister 1 Alcohol abuse Sister 2 Alcohol addict ion - (Added by Conv) Relation Name Status Comments Father Mother Other 1 Other 2 Sister 1 Sister 2 Social History Tobacco Use Types Packs/Day Years Used Date Smoking Tobacco: Every Day Cigarettes Smokeless Tobacco: Never Tobacco Cessation:Ready to Q uit: Not Asked; Counseling Given: Not Answered Comments:10 cigarettes a day- she didn't want info Alcohol Use Standard [...] making you feel afraid or unsafe? Denies 01/13/2025 Comments No Sex and Gender Information Value Date Recorded Sex Assigned at Not on file Legal Sex Female 10:16 PM 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 SPECIALIST Gender Identity Not on file Sexual Orientation Not on file Obstetrics History Para Term AB IAB SAB Ectopic Multiple Livin g Live Births 0 0 0 0 0 0 0 0 0 0 0 Last Filed Vital Signs Vital Sign Reading Time Taken Comments Blood Pressure 164/80 01/14/2025 3:00 AM 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 SPECIALIST Pulse 93 01/14/2025 4:00 AM 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 SPECIALIST Temperature 36.9 C (98.4 F) 01/13/2025 8:20 PM 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 SPECIALIST Respiratory Rate 17 01/14/2025 4:00 AM 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 SPECIALIST Oxygen Saturation 98% 01/14/2025 4:00 AM 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 SPECIALIST Inhaled Oxygen Concentration - - Weight 34 kg (75 lb) 01/13/2025 8:20 PM 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 SPECIALIST Height 154.9 cm (5' 1) 01/13/2025 8:20 PM 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 SPECIALIST Body Mass Index 14.17 01/13/2025 8:20 PM 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 SPECIALIST Plan of Treatment Health Maintenance Due Date Last Done Comments Albumin Creatinine Ratio, Urine 1964 Depression Screening 1965 Hemoglobin A1C 1964 Hepatitis C Screening 1965 Dilated Eye Exam 1964 Foot Exam 1964 DTaP/Tdap/Td Vaccine (1 - Tdap) 10/31/1975 Hepatitis B Screening 1982 Regular Well Visit/Exam 18-64 1982 Pneumococcal vaccine <65 (2 of 2 - PCV) 02/15/2016 02/14/2015 Cervical Cancer Screening 11/25/20232022, 11/24/2022, 11/11/2021, Additional history exists Breast Cancer Screening-Mammogram 08/04/2024 08/05/2023, 08/05/2023, 09/18/2020, Additional history exists Covid-19 Vaccine ( - 2024-2 6 season) 2024 12/05/2021, 07/04/2021, 12/30/2020, Additional history exists eGFR 01/14/2026 01/14/2025, 02/16, 09/27/2018 Lipid Panel 02/05/2026 02/05/2025, 11/16, 08/09/2023, Additional history exists Colon Cancer Screening-Colonoscopy 04/09/2034 04/09/2024 Zoster Vaccine Completed 01/24/2023, 11/20/2022 Colon Cancer Screening-CT Colonography Discontinued 04/09/2024 Colon Cancer Screening-DNA Stool Discontinued 04/09/19 Colon Cancer Screening-FIT Discontinued 04/09/2024 Colon Cancer Screening-Sigmoidoscopy Discontinued 04/09/2024 Influenza Vaccine Completed 12/19/2024, , 12/05/2021, Additional history exists Medical Devices Implanted Type Area Sap Bw Developer Device Identifier Shelf Expiration Date Model / Serial / Lot Cage In Neck Other - see comments Neck Procedures Procedure Name Priority Date/Time Associated Diagnosis Comments URINE CULTURE STAT 01/14/2025 4:02 AM 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 SPECIALIST XR ABDOMEN ERECT AND OR DECUBITS 2 VIEWS ED 01/14/2025 1:21 AM 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 SPECIALIST URINALYSIS, MICROSCOPIC ONLY STAT 01/14/2025 12:48 AM 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 SPECIALIST URINALYSIS AND REFLEX TO MICROSCOPIC STAT 01/14/2025 12:48 AM 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 SPECIALIST EGFR STAT 01/14/2025 12:09 AM 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 SPECIALIST DIFFERENTIAL AUTO STAT 01/14/2025 12:09 AM 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 SPECIALIST LIPASE STAT 01/14/2025 12:09 AM 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 SPECIALIST COMPREHENSIVE METABOLIC PANEL STAT 01/14/2025 12:09 AM 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 SPECIALIST CBC WITH AUTO DIFFERENTIAL STAT 01/14/2025 12:09 AM 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 SPECIALIST POCT GLUCOSE DEVICE Routine 01/14/2025 12:08 AM 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 SPECIALIST POCT GLUCOSE DEVICE Routine 01/13/2025 8 :15 PM 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 SPECIALIST NEUROMUSCULAR SPECIMEN TRACKING OUTPATIENT Routine 11/12/2024 8:01 PM CDT ANNA1 antibody positive Numbness and tingling Weakness NEUROMUSCULAR TESTING Routine 11/09/2024 12:00 AM CDT ANNA1 antibody positive Numbness and tingling Weakness COLONOSCOPY 04/09/2024 11:46 AM 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 SPECIALIST PAP AND HIGH RISK HPV, REFLEX TO GENOTYPING Routine 11/24/2022 3:03 PM CDT Vulvar intraepithelial neoplasia III (CLEM III) SCREENING MAMMOGRAM BILATERAL W QUINCY Schedule Routine, Read Routine (OP Routine) 09/18/2020 9:19 AM CDT At risk for breast cancer from Last 3 Months or Most Recently Relevant to Health Maintenance Results * Urine culture Urine, bladder (01/14/2025 4:02 AM 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 SPECIALIST) Report Final Report: Less than 100,000 colonies/mL (clinically insignificant growth based on current clinical standards) Organism (CLINICALLY INSIGNIFICANT GROWTH LENA PEDROZA Urine, bladder 01/14/2025 4: 02 AM 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 SPECIALIST 01/14/2025 4:24 AM 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 SPECIALIST Narrative LENA PEDROZA - 01/15/2025 6:34 AM 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 SPECIALIST Indications for Culture:->Other (specify) Other Indication:->suspected UTI Testing performed by [facility] Microbiology Laboratory ([phone]) us Hilda Christensen MD LAB MICROBIOLOGY - GEN ERAL ORDERABLES Final Result LENA PEDROZA [facility] Department [place] [address] * XR Abdomen Erect and or Decubitus 2 Views (01/14/2025 1:21 AM 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 SPECIALIST) Anatomical Region Laterality Modality Body, Abdomen N/A Computed Radiogr aphy 01/14/2025 1:33 AM 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 SPECIALIST Impressions 01/14/2025 11:09 AM 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 SPECIALIST A single upright radiograph of the abdomen is submitted for evaluation. There is mild gaseous distention of the colon at the splenic flexure. The remaining loops of bowel are of normal caliber. Dictated by: Cheng Pradhan MD The radiology attending physician has personally reviewed this study, and had reviewed and/or edited this written report and agrees with it. Electronically signed by: Kameron Simmons M.D. Narrative 01/14/2025 11:09 AM 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 SPECIALIST EXAMINATION: Abdomen, one view. HISTORY: Constipation COMPARISON: 03/16/2024 Procedure Note Kameron Simmons MD - 01/14/2025 EXAMINATION: Abdomen, one view. HISTORY: Constipation COMPARISON: 03/16/2024 IMPRESSION: A single upright radiograph of the abdomen is submitted for evaluation. There is mild gaseous distention of the colon at the splenic flexure. The remaining loops of bowel are of normal caliber. Dictated by: Cheng Pradhan MD The radiology attending physician has personally reviewed this study, and had reviewed and/or edited this written report and agrees with it. Electronically signed by: Kameron Simmons M.D. us Hilda Christensen MD IMG XR PROCEDURES Madyson l Result * (ABNORMAL) Urinalysis reflex to microscopic (01/14/2025 12:48 AM 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 SPECIALIST) Color, ur Yellow Yellow Clarity, ur Turbid(A) Clear [facility] Specific gravity, ur 1.028 1.003 - 1.030 [facility] pH, urine 7.0 [facility] Comment: Interpretive Data U rine pH is affected by diet, medications, systemic acid-base disturbances, and renal tubular function. pH may affect urinary stone formation. For example, urine pH below 6.0 may help reduce the tendency for calcium phosphate stones and pH greater than 6.0 may reduce the tendency for uric acid stone formation. Source: [employer] Current Interpretive Data was last revised on 2017 Protein, ur ql 1+(A) Negative [facility] Glucose, ur ql Negative Negative [facility] Ketones, ur 1+(A) Negative [facility] Bilirubin, ur Negative Negative [facility] Blood, ur Negative Negative [facility] Urobilinogen, ur 2.0(A) <2.0 mg/dL [facility] Nitrite, ur Negative Negative [facility] Leukocyte esterase, ur 1+(A) Negative [facility] UA reflex comment Reflex to microscopic UA will be performed. [facility] Urine 01/14/2025 12:4 8 AM 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 SPECIALIST 01/14/2025 12:52 AM 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 SPECIALIST Felice Rodrigez MD PhD LAB URINE ORDERABLE S Final Result Performing Organization Address [facility] Co de Phone Number [facility] [employer] [place] [employer] [place] [address] * (ABNORMAL) Urinalysis, microscopic only (01/14/2025 12:48 AM 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 SPECIALIST) WBC, ur 6-10(A) 0 - 5 /HPF RBC, ur 11-20(A) 0 - 2 /HPF [facility] Epithelial cells, squamous, ur 1-5 0 - 5 /HPF [facility] Bacteria, ur 1+(A) [facility] Mucous, ur Present(A) [facility] Urine 01/14/2025 12:4 8 AM 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 SPECIALIST 01/14/2025 12:52 AM 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 SPECIALIST us Felice Rodrigez MD PhD LAB URINE ORDERABLE S Final Result Performing Organization Address City/[facility]/ZIP Co de Phone Number [facility] [place] [place] [address] * eGFR (01/14/2025 12:09 AM 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 SPECIALIST) eGFR 82 >=60 mL/min/1. 73 m2 Comment: Interpretive Data Reference Interval Normal >/= 90 mL/min/1.73m2 Mildly decreased* 60 - 89 mL/min/1.73m2 Mildly to moderately decreased 45 - 59 mL/min/1.73m2 Moderately to severely decreased 30 - 44 mL/min/1.73m2 Severely decreased 15 - 29 mL/min/1.73m2 Kidney Failure < 15 mL/min/1.73m2 *Relative to young adult level Estimated glomerular filtration rate is determined by the 2020 CKD-EPI equation recommended by the National Kidney Foundation (A Unifying Approach to GFR Estimation: Recommendations of the NKF-ASK Task Force on Reassessing the Inclusion of Race in Diagnosing Kidney Disease, JASN 202). The CKD-EPI equation should not be used for patients with unstable renal function and has not been validated in children and those over 70. Current interpretive data was last reviewed 2020. Blood 01/14/2025 12:0 9 AM 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 SPECIALIST 01/14/2025 12:25 AM 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 SPECIALIST us Meño Zhong MD LAB BLOOD ORDERABLES Madyson ku Result [facility] [address] [facility] Department [place] [address] * (ABNORMAL) Differential, auto (01/14/2025 12:09 AM 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 SPECIALIST) Neutrophil abs 8.11(H) 1.50 - 6.50 K/cumm Imm gran abs 0.09 0.00 - 0.10 K/cumm [facility] Lymphocyte abs 0.65(L) 0.80 - 3.30 K/cumm [facility] Monocyte abs 0.61 0.20 - 0.80 K/cumm [facility] Eosinophil abs 0.07 0.00 - 0.50 K/cumm [facility] Basophil abs 0.03 0.00 - 0.10 K/cumm [facility] Neutrophil pct 84.9 % [facility] Comment: Interpretive Data Percent cell count reference ranges are not reported, since discordance with absolute values may lead to misinterpretation of CBC data. Current Interpretive Data was last revised on 2017. Imm gran pct 0.9 % [facility] Comment: Interpretive Data Percent cell count reference ranges are not reported, since discordance with absolute values may lead to misinterpretation of CBC data. Current Interpretive Data was last revised on 2017. Lymphocyte pct 6.8 % [facility] Comment: Interpretive Data Percent cell count reference ranges are not reported, since discordance with absolute values may lead to misinterpretation of CBC data. Current Interpretive Data was last revised on 2017. Monocyte pct 6.4 % [facility] Comment: Interpretive Data Percent cell count reference ranges are not reported, since discordance with absolute values may lead to misinterpretation of CBC data. Current Interpretive Data was last revised on 2017. Eosinophil pct 0.7 % [facility] Comment: Interpretive Data Percent cell count reference ranges are not reported, since discordance with absolute values may lead to misinterpretation of CBC data. Current Interpretive Data was last revised on 2017. Basophil pct 0.3 % [facility] Comment: Interpretive Data Percent cell count reference ranges are not reported, since discordance with absolute values may lead to misinterpretation of CBC data. Current Interpretive Data was last revised on 2017. Blood 01/14/2025 12:0 9 AM 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 SPECIALIST 01/14/2025 12:25 AM 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 SPECIALIST Meño Zhong MD LAB BLOOD ORDERABLES Madyson ku Result [facility] [address] [facility] Department [place] [address] * (ABNORMAL) CBC with auto differential (01/14/2025 12:09 AM 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 SPECIALIST) WBC 9.56 3.80 - 9.90 K/cumm Hgb 13.8 11.9 - 15.5 g/dL [facility] Hct 40.5 35.6 - 45.5 % [facility] Plt 280 150 - 400 K/cumm [facility] MPV 8.8(L) 9.1 - 12.3 fL [facility] RBC 4.44 3.90 - 5.20 M/cumm [facility] MCV 91.2 81.3 - 96.4 fL [facility] MCH 31.1 27.1 - 33.3 pg [facility] MCHC 34.1 32.3 - 35.7 g/dL [facility] RDW CV 15.1(H) 11.1 - 14.9 % [facility] RDW SD 50.3(H) 35.7 - 48.1 fL [facility] NRBC abs 0.00 0.00 - 0.01 K/cumm [facility] Blood Venous blood specimen / Unknown 01/14/2025 12:09 AM 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 SPECIALIST 01/14/2025 12:25 AM 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 SPECIALIST Felice Rodrigez MD PhD LAB BLOOD ORDERABLE S Final Result Performing Organization Address City/[facility]/ZIP Co de Phone Number [facility] Department [place] [address] * Lipase (01/14/2025 12:09 AM 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 SPECIALIST) [facility] Lipase 34 10 - 99 Units/L Blood Venous blood specimen / Unknown 01/14/2025 12:09 AM 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 SPECIALIST 01/14/2025 12:25 AM 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 SPECIALIST us Felice Rodrigez MD PhD LAB BLOOD ORDERABLE S Final Result Performing Organization Address City/[facility] Co de Phone Number [facility] [place] [place] [address] * Comprehensive metabolic panel (01/14/2025 12:09 AM 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 SPECIALIST) [facility] Sodium 138 135 - 145 mmol/L Potassium, pl 4.3 3.3 - 4.9 mmol/L [facility] Chloride 103 97 - 110 mmol/L [facility] CO2 27 22 - 32 mmol/L [facility] Anion gap 8 2 - 15 mmol/L [facility] BUN 18 6 - 25 mg/dL [facility] Creatinine 0.82 0.60 - 1.10 mg/dL [facility] Glucose 96 70 - 199 mg/dL [facility] Comment: Interpretive Data Fasting glucose >/= 126 mg/dl is diagnostic for diabetes. Fasting is defined as no caloric intake for at least 8 hours. Fasting glucose between 100 mg/dl to 125 mg/dl is diagnostic of prediabetes. In a patient with classic symptoms of hyperglycemia or hyperglycemic crisis, a random glucose >/= 200 mg/dl is diagnostic for diabetes. In the absence of unequivocal hyperglycemia, results should be confirmed by repeat testing. The classification and Diagnosis of Diabetes Diabetes Care 2021; 46: S19-S40. Current interpretive data was last revised 2022. Calcium 9.0 8.5 - 10.3 mg/dL [facility] Bilirubin, total 0.8 0.1 - 1.2 mg/dL [facility] Protein, pl 7.2 6.5 - 8.5 g/dL [facility] Albumin 3.9 3.5 - 5.0 g/dL [facility] Alk phos 62 40 - 130 Units/L [facility] ALT 9 7 - 45 Units/L [facility] AST 17 10 - 45 Units/L [facility] Blood 01/14/2025 12:0 9 AM 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 SPECIALIST 01/14/2025 12:25 AM 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 SPECIALIST us Felice Rodrigez MD PhD LAB BLOOD ORDERABLE S Final Result Performing Organization Address City/[facility] Co de Phone Number [facility] [employer] [place] [employer] [place] [address] * POCT glucose (01/14/2025 12:08 AM 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 SPECIALIST) Glucose, POC 96 70 - 199 mg/dL Blood 01/14/2025 12:0 8 AM 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 SPECIALIST 01/14/2025 12:08 AM 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 SPECIALIST us Felice Rodrigez MD PhD LAB POCT ORDERABLES - DEVICE Final Result Performing Organization Address [facility]/ZIP Co de Phone Number [facility] [place] [address] * POCT glucose (01/13/2025 8:15 PM 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 SPECIALIST) Glucose, POC 88 70 - 199 mg/dL Blood 01/13/2025 8:15 PM 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 SPECIALIST 01/13/2025 8:15 PM 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 SPECIALIST Notinfile Unknown LAB POCT ORDERABLES - DEVICE F inal Result Performing Organization Address [facility] Co de Phone Number [facility] [place] [address] * Neuromuscular Specimen Tracking Outpatient Blood (11/12/2024 8:01 PM CDT) Blood Narrative [facility] - 11/12/2024 8:01 PM CDT Blood draw complete Rodrick Cespedes MD LAB BLOOD ORDERABLES Madyson l Result Performing Organization Address [facility] Co de Phone Number [facility] [place] [address] * Neuromuscular Testing Blood (11/09/2024 12:00 AM CDT) Blood (Serum) 11/09/2024 11/12/2024 Narrative [facility] - 11/20/2024 4:32 PM CDT Please click on the PDF link to view the report containing this result Result [facility] Rodrick Cespedes MD LAB PATHOLOGY ORDERABLES Final Result Performing Organization Address [facility] Co de Phone Number [facility] Room [address] [address] * Colonoscopy (04/09/2024 11:46 AM 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 SPECIALIST) Anatomical Region Laterality Modality Other Narrative Procedure Note Max Canada MD - 04/09/2024 11:46 AM CST [facility] GI ENDOSCOPY Patient Name: Katie Banerjee Procedure Date: 04/09/2024 11:46 AM Date of : 1965 Admit Type: Outpatient Age: 58 Gender: Female Attending MD: Max Canada MD Room: [facility] ENDOSCOPY ROOM 06 Note Status: Finalized Procedure: Colonoscopy Indications: Screening in patient at increased risk: Familyhistory of 1st-degree relative with colorectal cancer Referring MD: Providers: Max Canada MD Medicines: See the Anesthesia note for documentation of the administered medications Complications: No immediate complications. Estimated Blood Loss: Estimated blood loss was minimal. Procedure: Pre-Anesthesia Assessment: - Prior to the procedure, a History and Physicalwas performed, and patient medications and allergieswere reviewed. The risks and benefits of the procedureand the sedation options and risks were discussed withthe patient. All questions were answered and informed consent was obtained. Patient identification and proposed procedure were verified. After reviewingthe risks and benefits, the patient was deemed in satisfactory condition to undergo the procedure.The anesthesia plan was to use monitored anesthesiacare (MAC). Immediately prior to administration of medications, the patient was re-assessed foradequacy to receive sedatives. The heart rate, respiratory rate, oxygen saturations, blood pressure, adequacyof pulmonary ventilation, and response to care were monitored throughout the procedure. The physical status of the patient was re-assessed after the procedure. The benefits, risks and alternatives of theprocedure and sedation were discussed and informed consentwas obtained. All questions were answered. Please referto the signed informed consent document in the medical record. The scope was passed under direct vision.The Colonoscope was introduced through the anus and advanced to the terminal ileum, with identificationof the appendiceal orifice and IC valve. Thecolonoscopy was performed without difficulty. The patient tolerated the procedure well. The quality of thebowel preparation was good. Scope insertion time was 8 minutes. Scope withdrawal time was 25 minutes. Prep was administered in a split dose. Findings: The perianal and digital rectal examinations were normal. The visualized terminal ileum appeared normal. A 6 mm polyp was found in the transverse colon. The polyp wassessile. The polyp was removed with a cold snare. Resection and retrieval were complete. A 6 mm polyp was found in the sigmoid colon. The polyp was sessile.The polyp was removed with a cold snare. Resection and retrieval were complete. A 15 mm polyp was found in the recto-sigmoid colon. The polyp was sessile. The polyp was removed with a cold snare. Resection(piecemeal) and retrieval were complete. Small internal hemorrhoids. Impression: - The examined portion of the terminal ileum was normal. - One 6 mm polyp in the transverse colon, removedwith a cold snare. Resected and retrieved. - One 6 mm polyp in the sigmoid colon, removed witha cold snare. Resected and retrieved. - One 15 mm polyp at the recto-sigmoid colon,removed with a cold snare. Resected and retrieved. - Hemorrhoids. Recommendation: - Await pathology results. - Resume previous diet today. - Discharge patient to home. - Patient has a contact number available for emergencies. The signs and symptoms of potential delayed complications were discussed with thepatient. Return to normal activities tomorrow. Written discharge instructions were provided to thepatient. - I would be happy to see you in my GI clinic ifyou have further questions or concerns or if symptoms progress Max Canada MD 04/09/2024 12:31:51 PM Number of Addenda: 0 Note Initiated On: 04/09/2024 11:46 AM Recognized by the [place] [employer] for promoting quality in endoscopy us Max Canada MD ENDOSCOPY PROCEDURES Madyson l Result * Pap and High Risk HPV and Genotyping (Cytology Component) (11/24/2022 3:03 PM CDT) Thin prep (Pap test) 11/24/2022 3:03 PM CDT 11/24/2022 5:26 PM CDT Narrative PATHOLOGY [facility] - 11/29/2022 5:39 PM CDT EPIC results best viewed via link to PDF [facility] [place] [address] Note to Patients: This report may contain a detailed description of human tissue sent by a health care provider to the laboratory for pathologic evaluation. The content of this report is essential for diagnosis and may provide important critical findings. This information may be unfamiliar to patients to review without a medical professional present. It is advised that the patient review this report in the presence of a health care provider who can answer questions and explain the details. CYTOPATHOLOGY REPORT FINAL Patient Name: KATIE BANERJEE V. 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 Location: Patient Type: [facility] SPECIMEN Taken: 11/24/2022 Received: 11/24/2022 Accessioned: 11/25/2022 Reported: 11/29/2022 Physician(s): JYOTSNA Driver FINAL INTERPRETATION SOURCE OF SPECIMEN Liquid based Thin Prep pap with HPV: STATEMENT OF ADEQUACY - Satisfactory for evaluation - Endocervical cells/transformation zone sample present GENERAL CATEGORIZATION: - Negative for squamous intraepithelial lesion or malignancy INTERPRETATION: - Shift in lopez suggestive of bacterial vaginosis Comments HPV HR 16- Not Detected HPV HR 18-Not Detected HPV HR non 16/18- Not Detected Interpretive Data Nucleic acid amplification for detection of high-risk Human Papilloma virus (HPV) is performed by the Diaz Candice 6800 HPV test. This assay specifically detects HPV- 16 and HPV-18 genotypes. The following HPV genotypes are detected as high-risk HPV: HPV-31, 33, 35, 39, 45, 51, 52, 56, 58, 59, 66, and 68. This assay has been approved by the [place] Food and Drug Administration for detection of HPV in cervical specimens collected by a physician using an endocervical brush/spatula or cervical broom and placed in the ThinPrep Pap Test PreservCyt collection containers. The performance characteristics of this test have been verified by the [facility] Molecular Infectious Disease laboratory. Correlate with reported cytology results, as applicable. Interpretive data last revised 22 This specimen has been rescreened in accordance with this laboratory's Air Crew Member Program. j/11/29/2022 17:39 Jonn Carter MS, CT(ASCP)PA Report Electronically Reviewed and Signed Out By STEPHAN Robles(ASCP), [facility] 11/29/2022 17:39:45 Cervicovaginal Cytology (Pap Test) Disclaimer: The Pap test is a screening test used to detect cervical cancer and its precursors; it is not a diagnostic procedure. False negative and false positive results do occur. Pap test results should be interpreted in the context of pertinent clinical information and biopsy results as indicated. [facility] Clinical Laboratory Improvement Amendments (CLIA) mandate that cytologic and histologic results be correlated for laboratory inspector quality assurance & improvement standards. FOR ALL HIGH-GRADE CASES we request submission of follow-up histological material and/or reports that have not been previously provided so that we may fulfill said required standards. Gross Description A. 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 Report Images and scanned documents, if included only viewable in PDF version The performance characteristics of some immunohistochemical stains, in-situ hybridization and fluorescence in-situ hybridization tests and immunophenotyping by flow cytometry cited in this report (if any) were determined by the Surgical Pathology Department at [facility] as part of an ongoing quality assurance qa lab analyst program and in compliance with federally mandated regulations drawn from the Clinical Laboratory Improvement Act of 1988 (CLIA '88). Some of these tests rely on the use of analyte specific reagents and are subject to specific labeling requirements by the [place] Food and Drug Administration. Such diagnostic tests may only be performed in a facility that is certified by the Department of Health and Human Services as a high complexity laboratory under CLIA '88. The FDA has determined that such clearance or approval is not necessary. This test is used for clinical purposes. It should not be regarded as investigational or for research. Nevertheless, federal rules concerning the medical use of analyte specific reagents require that the following disclaimer be attached to the report: This test was developed and its performance characteristics determined by the Surgical Pathology Department of [facility]. It has not been cleared or approved by the U. S. Food and Drug Administration. Acacia Young NP LAB CYTOLOGY ORDERABLES Final R esult PATHOLOGY [facility] [address] Floor [place], [place] [phone] * Screening Mammogram Bilateral [place] (09/18/2020 9:19 AM CDT) Anatomical Region Laterality Modality Breast Bilateral Mammography Narrative 09/18/2020 4:47 PM CDT Mammogram Technique: Bilateral Digital Breast Tomosynthesis, Bilateral C-view 2D Screening mammogram. Views obtained: bilateral craniocaudal and bilateral mediolateral oblique. Computer Aided Detection was performed. Mammogram Findings: The present examination has been compared to prior imaging studies performed at [facility] on 07/08/2017, 07/18/2018 and 09/13/2019. There are scattered areas of fibroglandular density. There is no suspicious abnormality in either breast. Impression: There is no mammographic evidence of malignancy. Annual screening mammography is recommended. OVERALL FINAL ASSESSMENT: BI-RADS CATEGORY 1: Negative. Procedure Note Jania Petty MD - 09/18/2020 Mammogram Technique: Bilateral Digital Breast Tomosynthesis, Bilateral C-view 2D Screening mammogram. Views obtained: bilateral craniocaudal and bilateral mediolateral oblique. Computer Aided Detection was performed. Mammogram Findings: The present examination has been compared to prior imaging studies performed at [facility] on 07/08/2017, 07/18/2018 and 09/13/2019. There are scattered areas of fibroglandular density. There is no suspicious abnormality in either breast. Impression: There is no mammographic evidence of malignancy. Annual screening mammography is recommended. OVERALL FINAL ASSESSMENT: BI-RADS CATEGORY 1: Negative. Yady Stubbs NP IMG MAMMO PROCEDURES Fin al Result from Last 3 Months or Most Recently Relevant to Health Maintenance Insurance [employer] [place] [employer] [place] Care Teams Senior Physical Therapist Relationship Specialty Start Date End Date Hien Cunningham MD [address] [facility] [address] [place], [place] [phone] PCP - General Family Medicine 07/18/18
--- OUTSIDE RECORDS SUMMARY | 2025-02-08 00:30 | XMS_ITS | Clinical Summary ---
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 Name Role Phone Emma Mcdonald MD Primary Care Provider [phone] Pawel Neil MD Unavailable [phone] Gemma Reed MD Unavailable [phone] Suhas Canada DO Unavailable Blaise Jennings MD Unavailable [phone] Ant Kelly MD Unavailable Allergies Active Allergy Reactions Criticality Noted Date Comments Sulfamethoxazole-Trimet hoprim Rash High 04/10/2019 Doxycycline Contact Dermatitis,Rash,Itch ing Medium 04/09/2019 Varenicline Other (see comment) Low 11/03/2017 sucidal thoughts Medications albuterol (ACCUNEB) 0.63 MG/3ML nebulizer solutionIndication s:COPD, moderate ([facility] H[facility]) Take 3 mLs (0.63 mg total) by nebulization every 6 (six) hours as needed for Wheezing. 90 mL 02/03/20 23 Active albuterol sulfate HFA 108 (90 Base) MCG/ACT inhalerIndications :Chronic obstructive pulmonary disease, unspecified COPD type (CMS/HCC HHS/HCC) INAHLE 2 PUFFSPO EVERY 6 HOURS NEEDED FOR SHORTNESS OF BREATH AND/OR WHEEZING 8.5 g 3 08/19/19 24 Active Additional Information Patient taking differently: 2 puff Inhalation Every 6 hours PRN, Wheezing, Shortness of breath, Reported on 02/04/2025 Fluticasone-Umecli din-Vilant (TRELEGY ELLIPTA) 200-62.5-25 MCG/ACT AEROSOL POWDER, BREATH ACTIVATEDIndicatio ns:Chronic obstructive pulmonary disease, unspecified COPD type ([facility]/HCC HHS/HCC) Inhale 1 puff into the lungs daily. Rinse and spit after use 180 each 3 05/04/19 25 Active prochlorperazine (COMPAZINE) 10 MG tablet Take 1 tablet (10 mg total) by mouth every 6 (six) hours as needed (nausea). 06/20/19 25 Active metoclopramide (REGLAN) 5 MG tablet Take 1 tablet (5 mg total) by mouth 4 (four) times daily before meals and nightly. 11/24/19 25 Active amLODIPine (NORVASC) 5 MG tablet Take 1 tablet (5 mg total) by mouth daily. 30 tablet 02/07/20 25 Active atorvastatin (LIPITOR) 80 MG tablet Take 1 tablet (80 mg total) by mouth nightly at bedtime. 30 tablet 02/06/20 25 Active aspirin 81 MG chewable tablet Chew 1 tablet (81 mg total) by mouth daily. 30 tablet 02/07/20 25 Active valsartan (DIOVAN) 80 MG tablet Take 0.5 tablets (40 mg total) by mouth daily. 30 tablet 02/06/20 25 Active clopidogrel (PLAVIX) 75 MG tablet Take 1 tablet (75 mg total) by mouth daily. 30 tablet 1 02/06/20 25 Active cetirizine 10 MG tablet Take 1 tablet (10 mg total) by mouth nightly at bedtime. 11/11/19 19 025 Discontin ued(Error ) buPROPion XL (WELLBUTRIN XL) 150 MG 24 hr tabletIndications: Mild major depression, single episode TAKE 1 TABLET(150 MG) BY MOUTH DAILY 90 tablet 3 03/29/19 25 025 Discontin ued(Error ) ondansetron (ZOFRAN-ODT) 8 MG disintegrating tabletIndications: Nausea Take 1 tablet (8 mg total) by mouth every 8 (eight) hours as needed for Nausea. 60 tablet 03/02/02 25 Discontin ued(Error ) escitalopram (LEXAPRO) 20 MG tabletIndications: Mild major depression, single episode TAKE 1 TABLET BY MOUTH IN THE MORNING 90 tablet 3 05/26/19 Discontin ued(Error ) metoclopramide (REGLAN) 10 MG tablet Take 1 tablet (10 mg total) by mouth every 6 (six) hours as needed (nausea). 03/16/19 Discontin ued(Error ) Plecanatide 3 MG Tab Take 3 mg by mouth every evening. 05/22/19 Discontin ued(Error ) ondansetron (ZOFRAN) 4 MG tablet Take 1 tablet (4 mg total) by mouth. 06/20/19 Discontin ued(Error ) LORazepam (ATIVAN) 0.5 MG tabletIndications: Malignant neoplasm of right lung, unspecified part of lung (CMS/HCC HHS/HCC) Take 1 pill 30 min before radiation and another right before if needed. 3 tablet 10/20/19 Discontin ued(Error ) omeprazole (PRILOSEC) 20 MG capsule Take 1 capsule (20 mg total) by mouth. 11/07/19 Discontin ued(Error ) megestrol (MEGACE) 40 MG/ML suspension Take 10 mLs (400 mg total) by mouth daily. Discontin ued(Stop Taking at Discharge ) pregabalin (LYRICA) 75 MG capsule Take 1 capsule (75 mg total) by mouth 2 (two) times daily. 11/10/19 Discontin ued(Error ) Active Problems Problem Noted Date Diagnosed Date [...] 10/13/2017 Overview (07/24/2018): Description: [facility] [place] Postmenopausal 10/13/2017 Overview (07/24/2018): Description: LMP 05/2013 Obstructive sleep apnea syndrome 10/13/2017 Overview (07/24/2018): Description: uses CPAP, Dr. Hernandez Vulvar carcinoma 10/13/2017 Overview (07/24/2018): Description: sees Dr. 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 03/25/2011 Primary hypertension Hyperlipidemia TYLER (dyspnea on exertion) Family history of early CAD Tobacco abuse Resolved Problems Problem Noted Date Diagnosed Date Resolved Date Chest pain 12/31/2019 Encounters Date Type Department Care Team Description 02/05/2025 Telephone [facility] Family Medicine - [place] [id number] [facility], [address] [place] [address] Emma Mcdonald MD [facility] 02/04/2025 9:14 AM DISPLAYER - 02/05/2025 2:16 PM DISPLAYER Hospital Encounter [facility] [place] [address] Olivia Montelongo MD Lamonica, Kandace C, MD Neurologic Problem Discharge Disposition: Home or Self Care (Routine Discharge) 02/04/2025 Telephone [facility] Radiation Oncology [address] [place] [address] [place] [address] Ant Kelly MD Question 02/04/2025 Travel 01/31/2025 2:00 PM DISPLAYER - 01/31/2025 11:59 PM DISPLAYER Hospital Encounter [facility] Radiation Oncology [address] [place] [address] [place] [address] Ant Kelly MD Follow Up Discharge Disposition: Home or Self Care (Routine Discharge) 01/31/2025 Travel 01/28/2025 Telephone [facility] Radiation Oncology [address] [place] [address] Ant Kelly MD Referral 01/24/2025 8:02 AM DISPLAYER - 01/24/2025 11:59 PM DISPLAYER Hospital Encounter [facility] [place] [address] Ant Kelly MD Discharge Disposition: Home or Self Care (Routine Discharge) 01/24/2025 Orders Only [facility] Radiation Oncology [address] [place] [address] [place] [address] Ant Kelly MD 01/24/2025 Telephone [facility] Radiation Oncology [address] [place] [address] [place] [address] Ant Kelly MD Results 01/24/2025 Travel 01/22/2025 4:26 PM DISPLAYER - 01/22/2025 11:59 PM DISPLAYER Hospital Encounter [facility] [address] [place] [address] Krzysztof Molina MD COPD Discharge Disposition: Home or Self Care (Routine Discharge) 01/22/2025 Travel 01/13/2025 Scan [facility] Sc[facility] 01/09/2025 Scan [facility] Scanned, [facility] 01/02/2025 11:40 AM DISPLAYER Office Visit [facility] Pulmonology Specialty Clinic - [address] [place] [address] Krzysztof Molina MD Follow Up 01/02/2025 Travel 12/28/2024 9:34 AM DISPLAYER - 12/28/2024 11:59 PM DISPLAYER Hospital Encounter [facility] Open MRI [address] [place] [address] Lilliana Horton NP Discharge Disposition: Home or Self Care (Routine Discharge) 12/28/2024 Travel 12/26/2024 Scan [facility] Scanned, [facility] 12/19/2024 2:20 PM DISPLAYER Office Visit [facility] [address] [facility], [address] [place] [phone] Emma Mcdonald MD Physical (Patient is present for a Physical. Patient goes to [facility] for her labs.) 12/19/2024 Travel 12/17/2024 Results Follow-Up [facility] [address] [facility], [address] [place] [address] [phone] Emma Mcdonald MD HEMOGLOBIN, GLYCOSYLATED, LIPID PANEL, VITAMIN B-12, TSH W/REFLEX 12/12/2024 Scan [facility] Scanned, [facility] 12/03/2024 Scan [facility]ALTH INFO [facility] Scanned, [facility] 11/28/2024 Scan [facility] Scanned, [facility] 11/23/2024 Scan [facility] Scanned, [facility] 11/22/2024 MyChart Message Enc [facility] [address], [address] [place] [phone] Emma Mcdonald MD hello 11/16/2024 Scan [facility] Scanned, [facility] from Last 3 Months Immunizations Immunization Administration Dates Next Due Fluzone (IIV3, Trivalent, 0. 5 ML Prefilled Syringe) 12/19/2024 Fluzone 6 Months+ Quad (0.5 mL Prefilled Syringe) 2020 Influenza (Generic) 11/12/2023,11/16/2017 Influenza Adult (Generic) 12/05/2021,11/16/2017, 11/14/2016 MODERNA COVID-19 BIVALENT (1 2+), MRNA, LNP-S, PF 12/05/2021 PFIZER COVID-19 (12+) MRNA, LNP-S, PF, JESSICA-SUCROSE, 30 MCG/0.3 ML (COMIRNATY) 12/19/2024 PFIZER COVID-19 (MARTINEZ CAP), MRNA, LNP-S, PF, 30 MCG/0.3 ML JESSICA-SUCROSE, IM 07/04/2021 PFIZER COVID-19 (ORIGINAL FORMULATION, PURPLE CAP) mRNA, LNP-S, PF, 30 MCG/0.3 ML DOSE 07/04/2021,12/30/2020,05/06/2020,2020 Pneumococcal (Pneumovax 23) 02/14/2015 Shingrix 01/24/2023,11/20/2022 Family History Medical History Relation Comments Alcohol Abuse Brother 1 Arthritis Brother 1 Cancer Brother 1 Drug Abuse Brother 1 Hypertension Brother 1 Lung Cancer Brother 1 Mental Health Brother 1 Bipolar Alcohol Abuse Brother 2 Arthritis Brother 2 Cancer Brother 2 lung - lobe valentin rakesh Drug Abuse Brother 2 opiates/meth Hypertension Brother 2 Arthritis Father CHF Father COPD Father Coronary artery disease Father Depression Father Diabetes Father Heart Disease Father Hypertension Father UT Father Alcohol Abuse Maternal Grandfather Alcohol Abuse Mother 76 Breast Cancer Mother Cancer Mother breast 76 Diabetes Other Glaucoma Other Hypertension Other Alcohol Abuse Sister 1 Arthritis Sister 1 Early Sister 1 Heart Disease Sister 1 Hypertension Sister 1 Mental Health Sister 1 Depression Alcohol Abuse Sister 2 2010 Arthritis Sister 2 Hypertension Sister 2 Alcohol Abuse Sister 3 Arthritis Sister 3 Hypertension Sister 3 Relation Status Comments Brother 1 Alive Brother 2 Father (Age 40) Maternal Grandfather Mother (Age 40) Other Other Sister 1 Alive Sister 2 Sister 3 Social History Tobacco Use Types Packs/Day Years Used Date Smoking Tobacco: Some Days Cigarettes 1 50.6 Started: 1974; Last attempted to quit: 08/09/2024 Passive Smoke Exposure: Current Smokeless Tobacco: Never Comments:Smoking a few cigar ettes a week. Alcohol Use Standard Drinks/Week Comments Not Currently 0 (1 standard drink = 0.6 oz pur e alcohol) [facility] Utilities Answer Date Recorded In the past 12 months has [employer], gas, oil, or water [employer] threatened to shut off services in your [...] Date Recorded Patient Health Questionnaire-2 Score 0 02/04/2025 Hunger Vital Sign Answer Date Recorded Within [...] a skilled nursing (including now)? No 01/29/2023 Housing Stability Vital Sign Answer Robert e Recorded In the last 12 months, was t here a time when you were not able to pay the mortgage or rent on time? No 06/08/2024 In the past 12 months, how m any times have you moved where you were living? 0 06/08/2024 At any time in the past 12 m [facility], were you homeless or living in a skilled nursing (including now)? No 06/08/2024 Humiliation, Afraid, Rape, and Kick questionnair e Answer Date Recorded Within the last year, have y ou been afraid of your partner or ex-partner? No 02/04/2025 Within the last year, have y ou been humiliated or emotionally abused in other ways by your partner or ex-partner? No Within the last year, have y ou been kicked, hit, slapped, or otherwise physically hurt by your partner or ex-partner? No 02/04/2025 Within the last year, have y ou been raped or forced to have any kind of sexual activity by your partner or ex-partner? No 02/04/2025 Social Connection and Isolation Panel Answer Date Recorded In a typical week, how many times do you talk on the phone with family, friends, or neighbors? Three times a week 02/04/2025 How often do you get togethe r with friends or relatives? Once a week 02/04/2025 How often do you attend chur ch or worship services? Never 02/04/2025 Do you belong to any clubs o r organizations such as orthodoxy groups, unions, fraternal or athletic groups, or school groups? No 02/04/2025 How often do you attend meet ings of the clubs or organizations you belong to? Never 02/04/2025 Are you , , di vorced, , never , or living with a partner? 02/04/2025 AUDIT-C Answer Date Recorded Q1: How often do you have a drink containing alcohol? Never 02/04/2025 Q2: How many drinks containi ng alcohol do you have on a typical day when you are drinking? Patient does not drink Q3: How often do you have si x or more drinks on one occasion? Never 02/04/2025 Overall Financial Resource Strain (CARDIA) Answe r Date Recorded How hard is it for you to pa y for the very basics like food, housing, medical care, and heating? Not hard at all 02/04/2025 [employer] [facility] - Occupational Stress Questionnaire Answer Date Recorded Do you feel stress - tense, restless, nervous, or anxious, or unable to sleep at night because your mind is troubled all the time - these days? Not at all 02/04/2025 Exercise Vital Sign Answer Date Recorde d On average, how many days pe r week do you engage in moderate to strenuous exercise (like a brisk walk)? 0 days 02/04/2025 On average, how many minutes do you engage in exercise at this level? 0 min 02/04/2025 Hunger Vital Sign Answer Date Recorded Within the past 12 months, y ou worried that your food would run out before you got the money to buy more. Never true 02/05/20 25 Within the past 12 months, t he food you bought just didn't last and you didn't have money to get more. Never true 02/04/2025 PRAPARE - Transportation Answer Date Re corded In the past 12 months, has l ack of transportation kept you from medical appointments or from getting medications? No 01/15 In the past 12 months, has l ack of transportation kept you from meetings, work, or from getting things needed for daily living? No 02/04/2025 Housing Stability Vital Sign Answer Robert e Recorded In the last 12 months, was t here a time when you were not able to pay the mortgage or rent on time? No 02/04/2025 In the past 12 months, how m any times have you moved where you were living? 0 02/04/2025 At any time in the past 12 m [facility], were you homeless or living in a skilled nursing (including now)? No 02/04/2025 [id number] Health Literacy Answer Date Recor ded How often do you need to hav e someone help you when you read instructions, pamphlets, or other written material from your doctor or pharmacy? Never 02/04/2025 [facility] Utilities Answer Date Recorded In the past 12 months has th e electric, gas, oil, or water company threatened to shut off services in your home? No 02/04/2025 Comments No Sex and Gender Information Value Date Recorded Sex Assigned at Female 03/06/2024 7:21 AM DISPLAYER Legal Sex Female 7:54 PM CDT Gender Identity Not on file Sexual Orientation Not on file Last Filed Vital Signs Vital Sign Reading Time Taken Comments Blood Pressure 140/86 02/05/2025 11:38 AM DISPLAYER Pulse 89 02/05/2025 11:38 AM DISPLAYER Temperature 36.6 C (97.9 F) 02/05/2025 11:38 AM DISPLAYER Respiratory Rate 17 02/05/2025 11:38 AM DISPLAYER Oxygen Saturation 98% 02/05/2025 11:38 AM DISPLAYER Inhaled Oxygen Concentration - - Weight 43 kg (94 lb 12.8 oz) 02/05/2025 3:07 AM DISPLAYER Height 154.9 cm (5' 1) 02/04/2025 9:35 AM DISPLAYER Body Mass Index 17.91 02/04/2025 9:35 AM DISPLAYER Plan of Treatment Upcoming Encounters Date Type Department Care Team (Late st Contact Info) Description 02/18/2025 12:00 PM DISPLAYER Office Visit [facility] Family Medicine - [place] [address] [facility], [address] [place] [phone] Emma Mcdonald MD [address] [facility] [address] [place] [phone] 06/11/2025 10:30 AM CDT Appointment [facility] Radiation Oncology [address] [place] [address] [place] [address] Ant Kelly MD [address] [facility] [address] [place] [address] 07/24/2025 8:20 AM CDT Office Visit [facility] Pulmonology Specialty Clinic - [address] [place] [address] Krzysztof Molina MD [address] [facility] [address] [place] [address] Health Maintenance Due Date Last Done Comments Kidney Health Evaluation 1965 Annual Physical 10/31/1967 Hepatitis C 1982 DTaP, Tdap and Td Vaccines (1 - Tdap) 10/31/1983 Pneumococcal Vaccine: 50+ Years (2 of 2 - PCV) 02/15/2016 02/14/2015 RSV Immunization or 60+ Years (1 - Risk 60-74 years 1-dose series) 2024 COVID-19 Vaccine (10 - Pfizer risk 2024- season) 2025 12/19/2024, 11/12/2023, 11/20/2022, Additional history exists Mammogram Screening 08/04/2025 08/05/2023, 09/18/2020, 09/18/2020, Additional history exists Hemoglobin A1C 08/06/2025 02/05/2025, 11/16, 04/25/2024, Additional history exists Cervical Cancer Screening Pap Smear (Age 30 to 64) Every 3 Years 11/24/2025 11/24/2022, 11/11/2021, 03/17/2017 Lipid Panel 02/05/2026 02/05/2025, 11/16, 08/09/2023, Additional history exists Colorectal Cancer Screening Colonoscopy (10 Years) 08/11/2026 08/11/2016, 02/14/2015 Diabetes: Retinopathy Eye Exam 09/04/2026 09/04/2024 Cervical Cancer Screening Pap with HPV Testing (Age 30 to 64) Every 5 Years 11/11/2026 11/11/2021 Cervical Cancer Screening with HPV 11/11/2026 Zoster Vaccines Completed 01/24/2023, 11/20/2022 Influenza Adult Completed 12/19/2024, 10/16, 12/05/2021, Additional history exists PHQ-2 (Physician [place]) Completed 02/04/2025 Hepatitis A Vaccines Aged Out No long er eligible based on patient's age to complete this topic Meningococcal B Vaccine Aged Out No l onger eligible based on patient's age to complete this topic Meningococcal Vaccine Aged Out No jacy mary eligible based on patient's age to complete this topic RSV Immunizations Under 20 Months Aged Out No longer eligible based on patient's age to complete this topic Medical Devices Implanted Type Area Cost Estimating Engineer Device Identifier Shelf Expiration Date Model / Serial / Lot Stent Uret 6fr 22cm Pigtl Crv Taper Tip Bldr Mrk - [id number] Implanted:Qty : 1 on 11/20/2020 by Ren Gonsalves MD at [facility] Stent Left: [employer] [id number] 04/16/2023 [id number] / [id number] Procedures Procedure Name Priority Date/Time Associated Diagnosis Comments USE ECHOCARDIOGRAM Today 02/05/2025 8: 45 AM DISPLAYER LIPID PANEL Routine 02/05/2025 6:25 AM DISPLAYER HEMOGLOBIN, GLYCOSYLATED Routine 02/05/2025 6:25 AM DISPLAYER MAGNESIUM Routine 02/05/2025 6:25 AM DISPLAYER BASIC METABOLIC PANEL Routine 02/05/2025 6:25 AM DISPLAYER HC CBC AUTO W/AUTO DIFF Routine 02/05/2025 6:25 AM DISPLAYER MRI BRAIN WO STROKE FAST PROTOCOL Today 02/04/2025 2:07 PM DISPLAYER ECG 12-LEAD STAT 02/04/2025 9:32 AM DISPLAYER TROPONIN, QUANT STAT 02/04/2025 9:27 AM DISPLAYER COMPREHENSIVE METABOLIC PANEL STAT 02/04/2025 9:27 AM DISPLAYER PARTIAL THROMBOPLASTIN TIME,PTT STAT 02/04/2025 9:27 AM DISPLAYER PROTHROMBIN TIME, VENOUS STAT 02/04/2025 9:27 AM DISPLAYER HC CBC AUTO W/AUTO DIFF STAT 02/04/2025 9:27 AM DISPLAYER CTA HEAD+NECK STAT 02/04/2025 9:[address] STROKE(HEAD WO) STAT 02/04/2025 9: 25 AM DISPLAYER POCT GLUCOSE - DOCKED DEVICE Routine 02/04/2025 9:15 AM DISPLAYER PET EYE TO THIGH [id number] Routine 01/24/2025 12:53 PM DISPLAYER 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 (CMS/HCC HHS/HCC) MRI BRAIN WWO CON STAT 12/28/2024 10: 51 AM DISPLAYER 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 (CMS/HCC HHS/HCC) TSH W/REFLEX Routine 12/14/2024 6:35 AM CDT VITAMIN B-12 Routine 12/14/2024 6:35 AM CDT LIPID PANEL Routine 12/14/2024 6:35 AM CDT Mixed hyperlipidemia HEMOGLOBIN, GLYCOSYLATED Routine 12/14/2024 6:35 AM CDT Type 2 diabetes mellitus without complication, without long-term current use of insulin (CMS/HCC HHS/HCC) DIABETIC RETINOPATHY EXAM (NEGATIVE)(SCAN ORDER) Routine 09/04/2024 MG SCREENING W NIKOLAY RAJ DIGI Routine 08/05/2023 11:06 AM CDT Encounter for screening mammogram for malignant neoplasm of breast OUTSIDE CYTOPATH CERV/VAG INTERPRET (PAP) Routine 11/11/2021 CYTOPATH CERV/VAG THIN LAYER Routine 03/17/2017 12:00 AM DISPLAYER COLONOSCOPY Routine 08/11/2016 12:00 AM CDT from Last 3 Months or Most Recently Relevant to Health Maintenance Results * USE ECHOCARDIOGRAM (02/05/2025 8:45 AM DISPLAYER) Anatomical Region Laterality Modality Cardiac Echocardiogram 02/05/2025 8:14 AM DISPLAYER Narrative 02/05/2025 10:32 AM DISPLAYER Echocardiography Report Pat.Name: KATIE BANERJEE V Pat.ID: [id number] .Date: 02/05/2025 Exam Time: 8:14:00 AM Study Type:ECHO WITH CARDIAC DOPPLER COMP Height: 61 in Weight: 94 lb BSA: 1.37 m2 Age: 9 1965,59Y Sex: F BP: 159/104 HR: 72 bpm Sonogrphr: Jennifer Santana RDCS Pat. Stat.:Inpatient Room: [facility] Reason for Study:Stroke/TIA, CVA History / Clinical:BLE pain/swelling after being on legs/feet all day. PMH- asa. HTN. TBI. COPD. ADAL. vulvar CA. DM. tob. No priors Procedures: 2D, M-mode, Doppler, Color Flow, Intraveneous saline contrast was used to help determine presence of intracardiac shunting. The study quality is technically good. Race: W ++++++++++++++++++++++++++++++++++++ SUMMARY: ++++++++++++++++++++++++++++++++++++ Left ventricle is normal in size and systolic function Estimated EF of 55-60% Right ventricle is normal in size with borderline normal function. Unable to estimate pulmonary pressures Negative bubble study ++++++++++++++++++++++++++++++++++++ FINDINGS: ++++++++++++++++++++++++++++++++++++ LV: The left ventricular size is normal. The left ventricular systolic function is normal. Estimated left ventricular ejection fraction is 55-60%. No concentric left ventricular hypertrophy. Left ventricular diastolic function is normal. WM: Wall motion appears normal in all segments. RV: The right ventricular size is normal. Right ventricular systolic function is at the lower limit of normal. IVS: No evidence of ventricular septal defect. LA: The left atrial volume is normal ( less than 34 ml/M2). RA: Right atrial size is normal. IAS: The agitated saline injection showed no clear evidence of shunting into the left atrium, consistent with no patent foramen ovale. PÉREZ: No evidence of pericardial effusion. AO: Normal aortic root. PA: Estimated right atrial pressure of 3 mmHg. SVn: Inferior vena cava shows >50% collapse with respiration consistent with normal right atrial pressure. AV: The aortic valve is trileaflet. No evidence of aortic valve stenosis. No evidence of aortic regurgitation. MV: Structurally normal mitral valve. Trace mitral regurgitation. No evidence of mitral valve stenosis. PV: No evidence of pulmonic valve stenosis. No evidence of pulmonic regurgitation. TV: Structurally normal tricuspid valve. A trace of tricuspid regurgitation. No evidence of tricuspid valve stenosis. ++++++++++++++++++++++++++++++++++++ MEASUREMENTS: ++++++++++++++++++++++++++++++++++++ DOPPLER LVOT LVOTpkPG 3 mmHg LVOTmnPG 2 mmHg LVOTpkVel 92.1 cm/s (70-110)+ LVOT SV 54 ml LVOT TVI 17.2 cm Right Atrium RA Press 3 mmHg [facility]'s Disk 20 Pulmonary Veins PVnpkVeld 41.9 cm/s PVnVs/Vd 1.6 PVnpkVels 67.1 cm/s PVn A Dur 102 msec AV Forward Flow AV TVI 20.9 cm AV pkPG 4 mmHg AV pkVel 105 cm/s (100-170)+ Area (TVI) 2.58 cm2 (3-5)* AV mnPG 2 mmHg Area (Robert) 2.75 cm2 (3-5)* MV Forward Flow MV DeTm 201 msec MV pkE 50.3 cm/s (60-130)* MV E/A 0.6 MV pkA 80.7 cm/s PV Forward Flow PV pkVel 99.8 cm/s (60-90)+* PV AC 82 msec PV pkPG 4 mmHg TV Regurg Flow TV pkPG 14 mmHg TV pkVel 185 cm/s (30-70)* Right Ventricle RVsys P 17 mmHg Right Ventricle 9.14 cm/s Lat E' Lat e 9.46 cm/s Lat E/E' Lat E/e 5.3 Med E' Med e 6.96 cm/s Med E/E' Med E/e 7.2 Aortic Valve Aortic Valve Ar 1.88 Aortic Valve Ve 0.88 AV DI Value 0.82 PV Antegrade Flow Acceleration Sl 1054 cm/s2 2D Left Ventricle LVIDd 4.3 cm (3.6-5.2) LV ESV 26.8 ml LVIDs 3.1 cm (2.3-3.9) LV ESV 26.8 ml LngAxd 7.43 cm LVESV BP 27.6 ml LngAxd 7.44 cm LV EF 57.2 % LV EDV 62.6 ml LV EF 58.3 % LV EDV 64 ml LV EF BP 56.3 % LVEDV BP 63.2 ml LV SV 35.8 ml LngAxs 6.27 cm LV SV 37.3 ml LngAxs 5.85 cm LV SV BP 35.6 ml LVPW LVPWd 0.8 cm Right Ventricle RVIDd 2.8 cm (2.6-4.3) Right Ventricle 22 mm Right Ventricle 25 mm Right and Left 0.651 Major [place] 58 mm Ventricular Septum IVSd 0.7 cm Left Atrium LA VOLBP 34.7 ml Aorta Ao Rtd 3.2 cm LVOT LVOT 2 cm LVOTArea 3.14 cm2 Ratios IVS Inferior vena cava IVC Diam 9 mm LA Biplane LAVol I BP 25.3 ml/m2 RA Single Plane Right Atrium MO 8.19 mm Right Atrium Sy 14.9 ml Right Atrium Sy 43.5 mm Right Atrium Sy 10.9 ml/m2 Right Atrium Sy 8.69 cm2 MMODE TA Tricuspid Annul 16.1 mm <Electronic Signature> 02/05/2025 10:32 AM Dat Rhoades M.D. Procedure Note Dat Rhoades MD - 02/05/2025 Echocardiography Report Pat.Name: KATIE BANERJEE V Pat.ID: [id number] .Date: 02/05/2025 Exam Time: 8:14:00 AM Study Type:ECHO WITH CARDIAC DOPPLER COMP Height: 61 in Weight: 94 lb BSA: 1.37 m2 Age: 9 1965,59Y Sex: F BP: 159/104 HR: 72 bpm Sonogrphr: Jennifer Santana RD Pat. Stat.:Inpatient Room: [facility] Reason for Study:Stroke/TIA, CVA History / Clinical:BLE pain/swelling after being on legs/feet all day. PMH- asa. HTN. TBI. COPD. ADAL. vulvar CA. DM. tob. No priors Procedures: 2D, M-mode, Doppler, Color Flow, Intraveneous saline contrast was used to help determine presence of intracardiac shunting. The study quality is technically good. Race: W ++++++++++++++++++++++++++++++++++++ SUMMARY: ++++++++++++++++++++++++++++++++++++ Left ventricle is normal in size and systolic function Estimated EF of 55-60% Right ventricle is normal in size with borderline normal function. Unable to estimate pulmonary pressures Negative bubble study ++++++++++++++++++++++++++++++++++++ FINDINGS: ++++++++++++++++++++++++++++++++++++ LV: The left ventricular size is normal. The left ventricular systolic function is normal. Estimated left ventricular ejection fraction is 55-60%. No concentric left ventricular hypertrophy. Left ventricular diastolic function is normal. WM: Wall motion appears normal in all segments. RV: The right ventricular size is normal. Right ventricular systolic function is at the lower limit of normal. IVS: No evidence of ventricular septal defect. LA: The left atrial volume is normal ( less than 34 ml/M2). RA: Right atrial size is normal. IAS: The agitated saline injection showed no clear evidence of shunting into the left atrium, consistent with no patent foramen ovale. PÉREZ: No evidence of pericardial effusion. AO: Normal aortic root. PA: Estimated right atrial pressure of 3 mmHg. SVn: Inferior vena cava shows >50% collapse with respiration consistent with normal right atrial pressure. AV: The aortic valve is trileaflet. No evidence of aortic valve stenosis. No evidence of aortic regurgitation. MV: Structurally normal mitral valve. Trace mitral regurgitation. No evidence of mitral valve stenosis. PV: No evidence of pulmonic valve stenosis. No evidence of pulmonic regurgitation. TV: Structurally normal tricuspid valve. A trace of tricuspid regurgitation. No evidence of tricuspid valve stenosis. ++++++++++++++++++++++++++++++++++++ MEASUREMENTS: ++++++++++++++++++++++++++++++++++++ DOPPLER LVOT LVOTpkPG 3 mmHg LVOTmnPG 2 mmHg LVOTpkVel 92.1 cm/s (70-110)+ LVOT SV 54 ml LVOT TVI 17.2 cm Right Atrium RA Press 3 mmHg Duke's Disk 20 Pulmonary Veins PVnpkVeld 41.9 cm/s PVnVs/Vd 1.6 PVnpkVels 67.1 cm/s PVn A Dur 102 msec AV Forward Flow AV TVI 20.9 cm AV pkPG 4 mmHg AV pkVel 105 cm/s (100-170)+ Area (TVI) 2.58 cm2 (3-5)* AV mnPG 2 mmHg Area (Robert) 2.75 cm2 (3-5)* MV Forward Flow MV DeTm 201 msec MV pkE 50.3 cm/s (60-130)* MV E/A 0.6 MV pkA 80.7 cm/s PV Forward Flow PV pkVel 99.8 cm/s (60-90)+* PV AC 82 msec PV pkPG 4 mmHg TV Regurg Flow TV pkPG 14 mmHg TV pkVel 185 cm/s (30-70)* Right Ventricle RVsys P 17 mmHg Right Ventricle 9.14 cm/s Lat E' Lat e 9.46 cm/s Lat E/E' Lat E/e 5.3 Med E' Med e 6.96 cm/s Med E/E' Med E/e 7.2 Aortic Valve Aortic Valve Ar 1.88 Aortic Valve Ve 0.88 AV DI Value 0.82 PV Antegrade Flow Acceleration Sl 1054 cm/s2 2D Left Ventricle LVIDd 4.3 cm (3.6-5.2) LV ESV 26.8 ml LVIDs 3.1 cm (2.3-3.9) LV ESV 26.8 ml LngAxd 7.43 cm LVESV BP 27.6 ml LngAxd 7.44 cm LV EF 57.2 % LV EDV 62.6 ml LV EF 58.3 % LV EDV 64 ml LV EF BP 56.3 % LVEDV BP 63.2 ml LV SV 35.8 ml LngAxs 6.27 cm LV SV 37.3 ml LngAxs 5.85 cm LV SV BP 35.6 ml LVPW LVPWd 0.8 cm Right Ventricle RVIDd 2.8 cm (2.6-4.3) Right Ventricle 22 mm Right Ventricle 25 mm Right and Left 0.651 Major [place] 58 mm Ventricular Septum IVSd 0.7 cm Left Atrium LA VOLBP 34.7 ml Aorta Ao Rtd 3.2 cm LVOT LVOT 2 cm LVOTArea 3.14 cm2 Ratios IVS Inferior vena cava IVC Diam 9 mm LA Biplane LAVol I BP 25.3 ml/m2 RA Single Plane Right Atrium MO 8.19 mm Right Atrium Sy 14.9 ml Right Atrium Sy 43.5 mm Right Atrium Sy 10.9 ml/m2 Right Atrium Sy 8.69 cm2 MMODE TA Tricuspid Annul 16.1 mm <Electronic Signature> 02/05/2025 10:32 AM Dat Rhoades M.D. Elizabeth Abdi NP ECHO Final Result * MAGNESIUM (02/05/2025 6:25 AM DISPLAYER) [facility] MAGNESIUM 2.1 1.8 - 2.4 MG/DL 02/05/2025 7:22 AM DISPLAYER [facility] BLOOD VENOUS BLOOD SPECIMEN / Unknown 02/05/2025 6:25 AM DISPLAYER us Elizabeth Abdi NP LABORATORY Final Result [facility] [address] [place] [address], [place] [phone] * (ABNORMAL) LIPID PANEL (02/05/2025 6:25 AM DISPLAYER) [facility] CHOLESTEROL 151 <200 MG/DL 02/05/2025 7:25 AM DISPLAYER [facility] TRIGLYCERIDES 123 <150 MG/DL 02/05/2025 7:25 AM [facility] HDL 36(L) >40.0 MG/DL 02/05/2025 7:25 AM [facility] LDL (CALCULATED) 90 <100 MG/DL 02/06/20 7:25 AM [facility] Comment:CALCULATED USING THE FRIEDEWALD EQUATION NON HDL CHOLESTEROL 115 <130 MG/DL 02/05 7:25 AM [facility] CHOL/HDL RATIO 4.2 0.0 - 4.5 02/05/2025 7:25 AM [facility] VLDL CALCULATION 25 5 - 55 MG/DL 02/05/2025 7:25 AM [facility] LIPID INTERPRETATION 02/05/2025 7:25 AM [facility] Comment: NIH CONCENSUS REPORT RECOMMENDATIONS: ADULT CHILD LOW RISK: CHOLESTEROL <200 <170 TRIGLYCERIDE <150 --- HDL >=60 --- LDL <100 <110 BORDERLINE: CHOLESTEROL 200-239 170-199 TRIGLYCERIDE 150-199 --- HDL 40-59 --- LDL 100-159 110-129 HIGH RISK: CHOLESTEROL >=240 >=200 TRIGLYCERIDE >=200 --- HDL <40 --- LDL >=160 >=130 BLOOD VENOUS BLOOD SPECIMEN / Unknown 02/05/2025 6:25 AM DISPLAYER us Elizabeth Abdi NP LABORATORY Final Result [facility] [address] [place] [address], [place] [phone] * HEMOGLOBIN, GLYCATED (02/05/2025 6:25 AM DISPLAYER) HGB A1C 5.0 <5.7 % 02/05/2025 7:45 AM DISPLAYER [facility] Comment: ADA GUIDELINES 2010 5.7 TO 6.4% INCREASED RISK OF DIABETES > OR = 6.5% CONSISTENT WITH DIABETES ESTIMATED AVG GLUCOSE 97 mg/dL 02/05/2025 7:45 AM [facility] BLOOD VENOUS BLOOD SPECIMEN / Unknown 02/05/2025 6:25 AM DISPLAYER Elizabeth Abdi NP LABORATORY Final Result [facility] [address] [place] [address], [place] [phone] * (ABNORMAL) CBC W/DIFF AUTOMATED (02/05/2025 6:25 AM DISPLAYER) Only the most recent of2 resultswithin the time period is included. WBC 7.98 4.5 - 11.0 x10'3/uL 02/05/2025 7:44 AM [facility] RBC 4.02(L) 4.20 - 5.40 x10'6/uL 02/05/2025 7:44 AM [facility] HGB 12.7 12.0 - 16.0 G/DL 02/05/2025 7:44 AM [facility] HCT 37.5(L) 38.0 - 48.0 % 02/05/2025 7:44 AM [facility] MCV 93.3 81.0 - 99.0 FL 02/05/2025 7:44 AM [facility] MCH 31.6(H) 27.0 - 31.0 PG 02/05/2025 7:44 AM [facility] MCHC 33.9 32.0 - 36.0 G/DL 02/05/2025 7:44 AM [facility] RDW 15.1(H) 11.5 - 14.5 % 02/05/2025 7:44 AM [facility] PLT 316 130 - 400 x10'3/uL 02/05/2025 7:44 AM [facility] MPV 8.5(L) 9.3 - 12.2 FL 02/05/2025 7:44 AM [facility] DIFFERENTIAL TYPE AUTOMATED DIFFERENTIAL 02/05/2025 7:44 AM [facility] NEUTROPHILS % 83.4 % 02/05/2025 7:44 AM [facility] LYMPHOCYTES % 8.3 % 02/05/2025 7:44 AM [facility] MONOCYTES % 6.1 % 02/05/2025 7:44 AM [facility] EOSINOPHILS 1.0 % 02/05/2025 7:44 AM [facility] BASOPHILS 0.4 % 02/05/2025 7:44 AM [facility] IMMATURE GRANS % 0.8 % 02/06/20 7:44 AM [facility] ABS. NEUTROPHILS 6.66 1.80 - 7.70 x10'3/uL 02/05/2025 7:44 AM [facility] ABS. LYMPHOCYTES 0.66(L) 1.00 - 4.80 x10'3/uL 02/05/2025 7:44 AM [facility] ABS. MONOCYTES 0.49 0.24 - 0.86 x10'3/uL 02/05/2025 7:44 AM [facility] ABS. EOSINOPHILS 0.08 0.04 - 0.36 x10'3/uL 02/05/2025 7:44 AM [facility] ABS. BASOPHILS 0.03 0.01 - 0.08 x10'3/uL 02/05/2025 7:44 AM [facility] ABS. IMMATURE GRANULOCYTES 0.06 0.00 - 0.49 x10'3/uL 02/05/2025 7:44 AM [facility] BLOOD VENOUS BLOOD SPECIMEN / Unknown 02/05/2025 6:25 AM DISPLAYER Elizabeth Abdi NP LABORATORY Final Result [facility] [address] [place] [address], [place] [phone] * (ABNORMAL) BASIC METABOLIC PANEL (02/05/2025 6:25 AM DISPLAYER) GLUCOSE 139(H) 70 - 99 MG/DL 02/05/2025 7:22 AM [facility] BUN 12 7 - 18 MG/DL 02/05/2025 7:22 AM [facility] CREATININE S/P/B 0.49(L) 0.55 - 1.02 MG/DL 02/05/2025 7:22 AM [facility] SODIUM S/P/B 139 136 - 145 MMOL/L 02/05/2025 7:22 AM [facility] POTASSIUM S/P/B 3.6 3.5 - 5.1 MMOL/L 02/05/2025 7:22 AM [facility] CHLORIDE S/P/B 109 97 - 115 MMOL/L 02/05/2025 7:22 AM [facility] CO2 21.7 21 - 32 MMOL/L 02/05/2025 7:22 AM [facility] CALCIUM S/P/B 8.6 8.5 - 10.1 MG/DL 02/05/2025 7:22 AM [facility] ANION GAP 8.3 2 - 10 MMOL/L 02/05/2025 7:22 AM DISPLAYER [facility] BUN CREATININE RATIO 24.4 6 - 26 02/05/2025 7:22 AM DISPLAYER [facility] GFR ESTIMATE >90 >90 ML/MIN/1.7 3 M2 02/05/2025 7:22 AM DISPLAYER [facility] Comment: NOTE: eGFR is not calculated for patients <18 years of age or gender unknown. This is an estimated GFR calculation using the new CKD EPI creatinine equation without race and so does not require a correction factor for race. This estimated GFR should not be used for calculating drug doses. BLOOD VENOUS BLOOD SPECIMEN / Unknown 02/05/2025 6:25 AM DISPLAYER Elizabeth Abdi ORGAN TUNER LABORATORY Final Result [facility] [address] [place] [address], * MRI BRAIN WO STROKE FAST PROTOCOL (02/04/2025 2:07 PM DISPLAYER) Anatomical Region Laterality Modality Head, Neck Magnetic Resonan ce 02/04/2025 2:11 PM DISPLAYER Impressions 02/04/2025 2:21 PM DISPLAYER IMPRESSION: 1. Small recent nonhemorrhagic left frontal white matter infarcts. 2. Possible small vessel disease. Ordered By: ELIZABETH ABDI Interpreted By: James Torres MD, 02/04/2025 2:11 PM Narrative 02/04/2025 2:21 PM DISPLAYER [facility] [address] [place], [place] [address] DATE: 02/04/2025 1:50 PM INDICATION: Dysarthria EXAMINATION: MRI brain without contrast. TECHNIQUE: Multiplanar and multisequence MRI images of the brain were obtained without contrast. COMPARISON: CT/CTA 02/04/2025. Brain MRI 12/28/2024 FINDINGS: Small foci of diffusion restriction and corresponding FLAIR hyperintensity noted in the left frontal white matter consistent with recent infarcts. No hemorrhagic transformation. No mass effect or midline shift. No other diffusion restriction or evidence of acute infarct elsewhere. There are confluent and patchy foci of FLAIR hyperintensity noted in the hemispheric white matter and irina, possibly due to small vessel disease, but nonspecific. Curvilinear FLAIR hyperintensity in the splenium of the corpus callosum, similar to prior. Ventricles and extra-axial/subarachnoid spaces are unremarkable. No extra-axial collections. Proximal portions of the major intracranial arterial flow voids are grossly patent. No hemorrhagic foci of susceptibility seen elsewhere. Cranial cervical junction, sellar content, and pineal region are unremarkable. Partially imaged postsurgical and degenerative changes in the cervical spine. Mastoid air cells clear. Mild mucosal thickening/retention cysts in the paranasal sinuses. Visualized orbits unremarkable. Procedure Note James Torres MD - 02/04/[address] [address] DATE: 02/04/2025 1:50 PM INDICATION: Dysarthria EXAMINATION: MRI brain without contrast. TECHNIQUE: Multiplanar and multisequence MRI images of the brain wereobtained without contrast. COMPARISON: CT/CTA 02/04/2025. Brain MRI 12/28/2024 FINDINGS: Small foci of diffusion restriction and corresponding FLAIR hyperintensitynoted in the left frontal white matter consistent with recent infarcts. Nohemorrhagic transformation. No mass effect or midline shift. No otherdiffusion restriction or evidence of acute infarct elsewhere. There areconfluent and patchy foci of FLAIR hyperintensity noted in the hemisphericwhite matter and irina, possibly due to small vessel disease, butnonspecific. Curvilinear FLAIR hyperintensity in the splenium of thecorpus callosum, similar to prior. Ventricles and extra- axial/subarachnoidspaces are unremarkable. No extra-axial collections. Proximal portions ofthe major intracranial arterial flow voids are grossly patent. Nohemorrhagic foci of susceptibility seen elsewhere. Cranial cervicaljunction, sellar content, and pineal region are unremarkable. Partiallyimaged postsurgical and degenerative changes in the cervical spine.Mastoid air cells clear. Mild mucosal thickening/retention cysts in theparanasal sinuses. Visualized orbits unremarkable. IMPRESSION: 1. Small recent nonhemorrhagic left frontal white matter infarcts. 2. Possible small vessel disease. Ordered By: ELIZABETH ABDI Interpreted By: James Torres MD, 02/04/2025 2:11 PM Elizabeth Abdi ORGAN TUNER MRI Final Result * ECG 12 lead (02/04/2025 9:32 AM DISPLAYER) ECG QT 353 [facility] ECG QTC 421 [facility] 02/04/2025 9:32 AM DISPLAYER Narrative [facility] - 02/04/2025 11:09 AM DISPLAYER [facility] Test Date: 2025-02-04 Pat Name: KATIE BANERJEE Department: 41 Room: [place] [address] Gender: Female Collar Pointer: Angie Schafer : 1965 Requested By: RADHA SIFUENTES Order Number: [id number] Reading MD: Chepe Reyna Measurements Intervals [place] Rate: 85 P: 76 CO: 161 QRS: 56 QRSD: 78 T: 80 QT: 353 QTc: 421 Interpretive Statements SINUS RHYTHM NONSPECIFIC T-WAVE ABNORMALITY Compared to ECG 01/29/2023 07:11:10 Anterior T wave changes are improved. LAYER Procedure Note Chepe Reyna MD - 02/04/2025 [facility] [address] [facility] Test Date: 2025-02-04 Pat Name: KATIE BANERJEE Department: 41 Room: [place] [address] Gender: Female Collar Pointer: Angie Schafer : 1965 Requested By: RADHA SIFUENTES Order Number: [id number] Reading MD: Chepe Reyna Measurements Intervals [place] Rate: 85 P: 76 CO: 161 QRS: 56 QRSD: 78 T: 80 QT: 353 QTc: 421 Interpretive Statements SINUS RHYTHM NONSPECIFIC T-WAVE ABNORMALITY Compared to ECG 01/29/2023 07:11:10 Anterior T wave changes are improved. LAYER Radha Sifuentes PA-C ECG ORDERABLES Final Resul t [facility] ([facility] * TROPONIN, QUANT (02/04/2025 9:27 AM DISPLAYER) Pathologist [facility] TROPONIN I HIGH SENSITIVITY 7 <54 ng/L 02/04/2025 10:00 AM DISPLAYER [facility] Comment: HIGH DOSES OF BIOTIN, TROPONIN-SPECIFIC AUTOANTIBODIES, AND ANTIBODY THERAPY CONTAINING HAMA MAY INTERFERE WITH THIS TEST RESULT. CORRELATION TO CLINICAL HISTORY AND PRESENTATION RECOMMENDED. BLOOD VENOUS BLOOD SPECIMEN / Unknown 02/04/2025 9:27 AM DISPLAYER Radha Sifuentes PA-C LABORATORY Final Resul t [facility] [address] [place] [address], [place] [phone] * PROTIME/INR, VENOUS (02/04/2025 9:27 AM DISPLAYER) PROTIME 11.4 10.2 - 12.9 SEC 02/04/2025 9:54 AM DISPLAYER [facility] INR 1.0 02/04/2025 9:54 AM DISPLAYER [facility] Comment: Recommended INR Therapeutic Goals: 2.0-3.0 Routine Therapy 2.5-3.5 Mechanical Prosthetic Valves (High Risk) BLOOD VENOUS BLOOD SPECIMEN / Unknown 02/04/2025 9:27 AM DISPLAYER us Radha Sifuentes PA-C LABORATORY Final Resul t Performing Organization Address City/[facility]/ZIP Co de Phone Number [facility] [address] [place] [address], [place] [phone] * PARTIAL THROMBOPLASTIN TIME,PTT (02/04/2025 9:27 AM DISPLAYER) PTT 26.6 25.1 - 36.5 SEC 02/04/2025 9:54 AM DISPLAYER [facility] BLOOD VENOUS BLOOD SPECIMEN / Unknown 02/04/2025 9:27 AM DISPLAYER Radha Sifuentes PA-C LABORATORY Final Resul t Performing Organization Address City/[facility] Co de Phone Number [facility] [address] [place] [address], [place] [phone] * (ABNORMAL) COMPREHENSIVE METABOLIC PANEL (02/04/2025 9:27 AM DISPLAYER) GLUCOSE 119(H) 70 - 99 MG/DL 02/04/2025 10:00 AM DISPLAYER [facility] BUN 18 7 - 18 MG/DL 02/04/2025 10:00 AM [facility] CREATININE S/P/B 0.59 0.55 - 1.02 MG/DL 02/04/2025 10:00 AM [facility] SODIUM S/P/B 137 136 - 145 MMOL/L 02/04/2025 10:00 AM [facility] POTASSIUM S/P/B 3.8 3.5 - 5.1 MMOL/L 02/04/2025 10:00 AM [facility] CHLORIDE S/P/B 108 97 - 115 MMOL/L 02/04/2025 10:00 AM [facility] CO2 23.2 21 - 32 MMOL/L 02/04/2025 10:00 AM [facility] CALCIUM S/P/B 8.9 8.5 - 10.1 MG/DL 02/04/2025 10:00 AM [facility] BILIRUBIN TOTAL S/P/B 0.4 0.2 - 1.2 MG/DL 02/04/2025 10:00 AM [facility] Comment: THIS ASSAY IS NOT RECOMMENDED FOR PATIENTS UNDERGOING TREATMENT WITH ELTROMBOPAG DUE TO THE POTENTIAL FOR FALSELY ELEVATED RESULTS. TOTAL PROTEIN S/P/B 6.9 6.4 - 8.2 G/DL 02/04/2025 10:00 AM [facility] ALBUMIN S/P/B 3.4 3.4 - 5.0 G/DL 02/04/2025 10:00 AM [facility] AST 7(L) 15 - 37 U/L 02/04/2025 10:00 AM [facility] ALT 13(L) 14 - 55 U/L 02/04/2025 10:00 AM [facility] ALKALINE PHOSPHATASE S/P/B 53 50 - 136 U/L 02/04/2025 10:00 AM [facility] ANION GAP 5.8 2 - 10 MMOL/L 02/04/2025 10:00 AM [facility] BUN CREATININE RATIO 30.4(H) 6 - 26 02/04/2025 10:00 AM [facility] A/G RATIO 1.0 1.0 - 2.0 RATIO 02/04/2025 10:00 AM [facility] GFR ESTIMATE >90 >90 ML/MIN/1.7 3 M2 02/04/2025 10:00 AM DISPLAYER [facility] Comment: NOTE: eGFR is not calculated for patients <18 years of age or gender unknown. This is an estimated GFR calculation using the new CKD EPI creatinine equation without race and so does not require a correction factor for race. This estimated GFR should not be used for calculating drug doses. BLOOD VENOUS BLOOD SPECIMEN / Unknown 02/04/2025 9:27 AM DISPLAYER us Radha Sifuentes PA-C LABORATORY Final Resul t [facility] [address] [place] [address], * CT STROKE(HEAD WO) (02/04/2025 9:25 AM DISPLAYER) Anatomical Region Laterality Modality Head Computed Tomogra phy 02/04/2025 9:41 AM DISPLAYER Impressions 02/06/2025 5:32 AM DISPLAYER IMPRESSION: 1. No definite large vessel intracranial arterial occlusion identified. 2. Moderate stenosis right supraclinoid ICA. 3. No hemodynamically significant stenosis in the neck. 4. Additional multifocal atherosclerotic disease, as detailed above. Ordered By: RADHA SIFUENTES Interpreted By: James Torres MD, 02/04/2025 9:41 AM Narrative 02/06/2025 5:32 AM DISPLAYER [facility] [address] [place], [place] [address] DATE: 02/04/2025 9:18 AM INDICATION: Slurred speech. EXAMINATION: CT angiography of the head and neck with contrast. TECHNIQUE: CT angiography of the head and neck were performed after uneventful intravenous administration of 80mL IOPAMIDOL 76 % IV SOLN. CT dose reduction techniques were utilized. Internal carotid stenosis measured according to NASCET criteria. Axial and 3-D/MIP images were reconstructed and reviewed. A dose lowering technique was used for this procedure, which may include, but is not limited to, dose reduction technique, automated exposure control, the use of iterative reconstruction, and ALARA (As Low As Reasonably Achievable) / Image Gently techniques. COMPARISON: None. FINDINGS: CTA NECK: Aorta and great vessel origins: Classic 3 vessel aortic arch origin anatomy. Atherosclerotic calcification and plaque noted along the aortic arch and mediastinal great vessels, without significant stenosis. Right carotid artery: Atheromatous and calcific plaque noted along the upper common carotid artery, bifurcation, and proximal cervical ICA, both less than 50% stenosis. Vascular tortuosity. Left carotid artery: Scattered atherosclerotic calcifications and atheromatous plaque noted along the common carotid artery, bifurcation, and proximal cervical ICA, both less than 50% stenosis. Right vertebral artery: No significant stenosis. Left vertebral artery: Atherosclerotic calcification at the origin, without significant narrowing. Developmentally smaller in caliber than the right. CTA HEAD: Atherosclerotic calcifications noted along the intracranial ICA segments. Moderate stenosis of the right supraclinoid ICA. Proximal portions of the anterior middle cerebral arteries are patent. Tiny anterior communicating artery is patent. Posterior circulation is slightly right dominant. Basilar artery patent to the terminus. left BLANKING PRESS OPERATOR with hypoplastic P1 segment and patent posterior communicating artery. Proximal portions of the posterior cerebral arteries, superior cerebellar arteries, and PICA branches are patent. Right posterior communicating artery not well-visualized. SOFT TISSUES: Small vessel disease and volume loss. Right maxillary retention cyst. Streak artifact from dental amalgam partially obscures assessment. Emphysema. Postsurgical and degenerative changes in the spine. Procedure Note James Torres MD - 02/06/[address] [address] DATE: 02/04/2025 9:18 AM INDICATION: Slurred speech. EXAMINATION: CT angiography of the head and neck with contrast. TECHNIQUE: CT angiography of the head and neck were performed afteruneventful intravenous administration of 80mL IOPAMIDOL 76 % IV SOLN. CTdose reduction techniques were utilized. Internal carotid stenosismeasured according to NASCET criteria. Axial and 3-D/MIP images werereconstructed and reviewed. A dose lowering technique was used for this procedure, which may include,but is not limited to, dose reduction technique, automated exposurecontrol, the use of iterative reconstruction, and ALARA (As Low AsReasonably Achievable) / Image Gently techniques. COMPARISON: None. FINDINGS: CTA NECK: Aorta and great vessel origins: Classic 3 vessel aortic arch originanatomy. Atherosclerotic calcification and plaque noted along the aorticarch and mediastinal great vessels, without significant stenosis. Right carotid artery: Atheromatous and calcific plaque noted along theupper common carotid artery, bifurcation, and proximal cervical ICA, bothless than 50% stenosis. Vascular tortuosity. Left carotid artery: Scattered atherosclerotic calcifications andatheromatous plaque noted along the common carotid artery, bifurcation,and proximal cervical ICA, both less than 50% stenosis. Right vertebral artery: No significant stenosis. Left vertebral artery: Atherosclerotic calcification at the origin,without significant narrowing. Developmentally smaller in caliber than theright. CTA HEAD: Atherosclerotic calcifications noted along the intracranial ICA segments.Moderate stenosis of the right supraclinoid ICA. Proximal portions of theanterior middle cerebral arteries are patent. Tiny anterior communicatingartery is patent. Posterior circulation is slightly right dominant. Basilar artery patent tothe terminus. left BLANKING PRESS OPERATOR with hypoplastic P1 segment and patentposterior communicating artery. Proximal portions of the posteriorcerebral arteries, superior cerebellar arteries, and PICA branches arepatent. Right posterior communicating artery not well-visualized. SOFT TISSUES: Small vessel disease and volume loss. Right maxillary retention cyst.Streak artifact from dental amalgam partially obscures assessment.Emphysema. Postsurgical and degenerative changes in the spine. IMPRESSION: 1. No definite large vessel intracranial arterial occlusion identified. 2. Moderate stenosis right supraclinoid ICA. 3. No hemodynamically significant stenosis in the neck. 4. Additional multifocal atherosclerotic disease, as detailed above. Ordered By: RADHA SIFUENTES Interpreted By: James Torres MD, 02/04/2025 9:41 AM us Radha Sifuentes PA-C CT Final Resul t * CTA HEAD+NECK (02/04/2025 9:25 AM DISPLAYER) Anatomical Region Laterality Modality Head, Neck Computed Tomogra phy 02/04/2025 9:41 AM DISPLAYER Impressions 02/04/2025 9:48 AM DISPLAYER IMPRESSION: 1. No definite large vessel intracranial arterial occlusion identified. 2. Moderate stenosis right supraclinoid ICA. 3. No hemodynamically significant stenosis in the neck. 4. Additional multifocal atherosclerotic disease, as detailed above. Ordered By: RADHA SIFUENTES Interpreted By: James Torres MD, 02/04/2025 9:41 AM Narrative 02/04/2025 9:48 AM DISPLAYER [facility] [address] [place], [place] [address] DATE: 02/04/2025 9:18 AM INDICATION: Slurred speech. EXAMINATION: CT angiography of the head and neck with contrast. TECHNIQUE: CT angiography of the head and neck were performed after uneventful intravenous administration of 80mL IOPAMIDOL 76 % IV SOLN. CT dose reduction techniques were utilized. Internal carotid stenosis measured according to NASCET criteria. Axial and 3-D/MIP images were reconstructed and reviewed. A dose lowering technique was used for this procedure, which may include, but is not limited to, dose reduction technique, automated exposure control, the use of iterative reconstruction, and ALARA (As Low As Reasonably Achievable) / Image Gently techniques. COMPARISON: None. FINDINGS: CTA NECK: Aorta and great vessel origins: Classic 3 vessel aortic arch origin anatomy. Atherosclerotic calcification and plaque noted along the aortic arch and mediastinal great vessels, without significant stenosis. Right carotid artery: Atheromatous and calcific plaque noted along the upper common carotid artery, bifurcation, and proximal cervical ICA, both less than 50% stenosis. Vascular tortuosity. Left carotid artery: Scattered atherosclerotic calcifications and atheromatous plaque noted along the common carotid artery, bifurcation, and proximal cervical ICA, both less than 50% stenosis. Right vertebral artery: No significant stenosis. Left vertebral artery: Atherosclerotic calcification at the origin, without significant narrowing. Developmentally smaller in caliber than the right. CTA HEAD: Atherosclerotic calcifications noted along the intracranial ICA segments. Moderate stenosis of the right supraclinoid ICA. Proximal portions of the anterior middle cerebral arteries are patent. Tiny anterior communicating artery is patent. Posterior circulation is slightly right dominant. Basilar artery patent to the terminus. left BLANKING PRESS OPERATOR with hypoplastic P1 segment and patent posterior communicating artery. Proximal portions of the posterior cerebral arteries, superior cerebellar arteries, and PICA branches are patent. Right posterior communicating artery not well-visualized. SOFT TISSUES: Small vessel disease and volume loss. Right maxillary retention cyst. Streak artifact from dental amalgam partially obscures assessment. Emphysema. Postsurgical and degenerative changes in the spine. Procedure Note James Torres MD - 02/06/[address] [address] DATE: 02/04/2025 9:18 AM INDICATION: Slurred speech. EXAMINATION: CT angiography of the head and neck with contrast. TECHNIQUE: CT angiography of the head and neck were performed afteruneventful intravenous administration of 80mL IOPAMIDOL 76 % IV SOLN. CTdose reduction techniques were utilized. Internal carotid stenosismeasured according to NASCET criteria. Axial and 3-D/MIP images werereconstructed and reviewed. A dose lowering technique was used for this procedure, which may include,but is not limited to, dose reduction technique, automated exposurecontrol, the use of iterative reconstruction, and ALARA (As Low AsReasonably Achievable) / Image Gently techniques. COMPARISON: None. FINDINGS: CTA NECK: Aorta and great vessel origins: Classic 3 vessel aortic arch originanatomy. Atherosclerotic calcification and plaque noted along the aorticarch and mediastinal great vessels, without significant stenosis. Right carotid artery: Atheromatous and calcific plaque noted along theupper common carotid artery, bifurcation, and proximal cervical ICA, bothless than 50% stenosis. Vascular tortuosity. Left carotid artery: Scattered atherosclerotic calcifications andatheromatous plaque noted along the common carotid artery, bifurcation,and proximal cervical ICA, both less than 50% stenosis. Right vertebral artery: No significant stenosis. Left vertebral artery: Atherosclerotic calcification at the origin,without significant narrowing. Developmentally smaller in caliber than theright. CTA HEAD: Atherosclerotic calcifications noted along the intracranial ICA segments.Moderate stenosis of the right supraclinoid ICA. Proximal portions of theanterior middle cerebral arteries are patent. Tiny anterior communicatingartery is patent. Posterior circulation is slightly right dominant. Basilar artery patent tothe terminus. left BLANKING PRESS OPERATOR with hypoplastic P1 segment and patentposterior communicating artery. Proximal portions of the posteriorcerebral arteries, superior cerebellar arteries, and PICA branches arepatent. Right posterior communicating artery not well-visualized. SOFT TISSUES: Small vessel disease and volume loss. Right maxillary retention cyst.Streak artifact from dental amalgam partially obscures assessment.Emphysema. Postsurgical and degenerative changes in the spine. IMPRESSION: 1. No definite large vessel intracranial arterial occlusion identified. 2. Moderate stenosis right supraclinoid ICA. 3. No hemodynamically significant stenosis in the neck. 4. Additional multifocal atherosclerotic disease, as detailed above. Ordered By: RADHA SIFUENTES Interpreted By: James Torres MD, 02/04/2025 9:41 AM Radha Sifuentes PA-C CT Final Resul t * (ABNORMAL) POCT glucose (02/04/2025 9:15 AM DISPLAYER) GLUCOSE POC 105(H) 70 - 99 mg/dL 02/04/2025 9:16 AM DISPLAYER [facility] 02/04/2025 9:15 AM DISPLAYER Attending Physician Emergency MD POCT ORDERABLES - DEVICE Final Result [facility] [address] [place] [address], [place] [phone] * PET EYE TO THIGH [id number] (01/24/2025 12:53 PM DISPLAYER) Anatomical Region Laterality Modality Body Positron Emissio n Tomography (PET) 01/24/2025 11:1 7 AM DISPLAYER Impressions 01/24/2025 1:59 PM DISPLAYER IMPRESSION: 1. New right hydroureteronephrosis to the level of an approximately 7 mm obstructing stone in the distal right ureter. There appears to be a smaller incompletely obstructing stone slightly proximal to this measuring 3.5 mm. 2. Complete metabolic and anatomic response to therapy with resolution of the hypermetabolic pulmonary nodules and hypermetabolic adenopathy in the right hilum and mediastinum. Tiny residual opacities in the right upper lobe may reflect a small amount of residual scarring and are not hypermetabolic. Recommend continued close attention on follow-up imaging. 3. Interval resolution of the left upper lobe pneumonia. Tiny amount of residual opacity in the left upper lobe may reflect a small area of residual scarring. Finding of new right hydroureteronephrosis to the level of obstructing stones in the distal right ureter were messaged to the ordering provider Dr. Kelly by Dr. Mcintosh via a [facility] secure message at 1:58 PM on 01/24/2025. Ordered By: ANT KELLY Interpreted By: Shell Mcintosh MD, 01/24/2025 11:17 AM Narrative 01/24/2025 1:[address] [address] EXAMINATION: TUMOR FDG-PET/CT IMAGING DATE OF STUDY: 01/24/2025 SCANNER: [facility] RADIOPHARMACEUTICAL: 11.6 mCi F-18 Fluorodeoxyglucose (FDG) i.v. Injection site: Right wrist HISTORY: Limited stage IIIC small cell lung cancer of the right upper lobe with multiple ipsilateral pulmonary nodules status post radiation. Patient currently on immunotherapy. The study is requested for treatment monitoring during therapy. Subsequent treatment strategy. TECHNIQUE: The patient's fasting blood glucose level, measured by glucometer before injection of FDG, was 116 mg/dL. JOSHGastroview was not given orally. After intravenous administration of FDG, noncontrast CT images were obtained for attenuation correction and for fusion with emission PET images to allow for anatomical localization of PET findings. Emission PET images were then obtained. The study was interpreted on the [employer] workstation. The mean liver SUV (reported for air quality specialist purposes) is 1.5. The total scanned area was skull base to the proximal thighs. Images of the body were obtained starting 50 minutes after injection of tracer. COMPARISON: FDG PET/CT 05/24/2024, CT abdomen and pelvis 11/08/2020 FINDINGS: Interval resolution of the hypermetabolic right hilar and mediastinal adenopathy seen on the prior PET/CT. Interval resolution of the hypermetabolic nodule behind the right mainstem bronchus. The hypermetabolic right upper lobe nodules have near completely resolved and demonstrate complete metabolic resolution. Interval resolution of the hypermetabolic left upper lobe pulmonary opacities. Tiny amount of residual opacity in the left upper lobe may be related to a tiny amount of residual scarring. Mild diffuse FDG uptake throughout the esophagus is likely inflammatory related to esophagitis. New right hydroureteronephrosis to the level of an approximately 7 mm obstructing stone in the distal right ureter. There appears to be a smaller incompletely obstructing stone slightly proximal to this measuring approximately 3.5 mm. On the previous PET/CT, these stones were intrarenal nonobstructing stones which have since migrated. Subtle sclerosis in the right posterior ilium is unchanged morphologically from at least 2020 and is not hypermetabolic. Additional CT findings: Streak artifact from dental restorations. Atherosclerotic calcification of the carotid arteries and thoracic aorta. Coronary artery calcification. Pulmonary emphysema. Atherosclerotic calcification of the abdominal aorta. Large amount of ingested contents within the stomach which appears distended. Small inguinal hernias containing only fat. Osteoarthritis of the hips. Anterior cervical spinal fusion hardware at C6-7. Bone islands in the proximal femurs. Multilevel spondylosis. Mild degenerative anterolisthesis of L5 on S1. Procedure Note Shell Mcintosh MD - 01/24/[address] [address] EXAMINATION: TUMOR FDG-PET/CT IMAGING DATE OF STUDY: 01/24/2025 SCANNER: [facility] RADIOPHARMACEUTICAL: 11.6 mCi F-18 Fluorodeoxyglucose (FDG) i.v.Injection site: Right wrist HISTORY: Limited stage IIIC small cell lung cancer of the right upper lobewith multiple ipsilateral pulmonary nodules status post radiation. Patientcurrently on immunotherapy. The study is requested for treatmentmonitoring during therapy. Subsequent treatment strategy. TECHNIQUE: The patient's fasting blood glucose level, measured byglucometer before injection of FDG, was 116 mg/dL. Davey was notgiven orally. After intravenous administration of FDG, noncontrast CTimages were obtained for attenuation correction and for fusion withemission PET images to allow for anatomical localization of PET findings.Emission PET images were then obtained. [facility]. The mean liver SUV (reported for quality controlpurposes) is 1.5. The total scanned area was skull base to the proximal thighs. Images ofthe body were obtained starting 50 minutes after injection of tracer. COMPARISON: FDG PET/CT 05/24/2024, CT abdomen and pelvis 11/08/2020 FINDINGS: Interval resolution of the hypermetabolic right hilar and mediastinaladenopathy seen on the prior PET/CT. Interval resolution of thehypermetabolic nodule behind the right mainstem bronchus. Thehypermetabolic right upper lobe nodules have near completely resolved anddemonstrate complete metabolic resolution. Interval resolution of the hypermetabolic left upper lobe pulmonaryopacities. Tiny amount of residual opacity in the left upper lobe may berelated to a tiny amount of residual scarring. Mild diffuse FDG uptake throughout the esophagus is likely inflammatoryrelated to esophagitis. New right hydroureteronephrosis to the level of an approximately 7 mmobstructing stone in the distal right ureter. There appears to be asmaller incompletely obstructing stone slightly proximal to this measuringapproximately 3.5 mm. On the previous PET/CT, these stones were intrarenalnonobstructing stones which have since migrated. Subtle sclerosis in the right posterior ilium is unchanged morphologicallyfrom at least 2020 and is not hypermetabolic. Additional CT findings: Streak artifact from dental restorations.Atherosclerotic calcification of the carotid arteries and thoracic aorta.Coronary artery calcification. Pulmonary emphysema. Atheroscleroticcalcification of the abdominal aorta. Large amount of ingested contentswithin the stomach which appears distended. Small inguinal herniascontaining only fat. Osteoarthritis of the hips. Anterior cervical spinalfusion hardware at C6-7. Bone islands in the proximal femurs. Multilevelspondylosis. Mild degenerative anterolisthesis of L5 on S1. IMPRESSION: 1. New right hydroureteronephrosis to the level of an approximately 7 mmobstructing stone in the distal right ureter. There appears to be asmaller incompletely obstructing stone slightly proximal to this measuring3.5 mm. 2. Complete metabolic and anatomic response to therapy with resolution ofthe hypermetabolic pulmonary nodules and hypermetabolic adenopathy in theright hilum and mediastinum. Tiny residual opacities in the right upperlobe may reflect a small amount of residual scarring and are nothypermetabolic. Recommend continued close attention on follow-upimaging. 3. Interval resolution of the left upper lobe pneumonia. Tiny amount ofresidual opacity in the left upper lobe may reflect a small area ofresidual scarring. Finding of new right hydroureteronephrosis to the level of obstructingstones in the distal right ureter were messaged to the ordering providerDr. Kelly by Dr. Mcintosh via a [facility] secure message at 1:58 PM on01/24/2025. Ordered By: ANT KELLY Interpreted By: Shell Mcintosh MD, 01/24/2025 11:17 AM us Ant Kelly MD PET Final Result * MRI BRAIN WWO CON (12/28/2024 10:51 AM DISPLAYER) Anatomical Region Laterality Modality Head Magnetic Resonan ce 12/28/2024 11:0 4 AM DISPLAYER Impressions 12/28/2024 11:07 AM DISPLAYER IMPRESSION: 1. No acute infarct or evidence of intracranial metastasis. 2. Moderate nonspecific patchy FLAIR signal abnormalities of the irina and supratentorial white matter, compatible with chronic small vessel ischemic changes, unchanged 2. Mild cerebral atrophy with concordant prominence of the ventricles. Referred By: LILLIANA HORTON Interpreted By: Tyrone Herrera MD, 12/28/2024 11:04 AM Narrative 12/28/2024 11:07 AM DISPLAYER [address] [address] EXAMINATION: Brain MRI with and without contrast 12/28/2024 INDICATION: Slurred speech for 2 to 3 weeks, history of lung cancer, for metastasis TECHNIQUE: Multiplanar multisequence or imaging of the head was performed prior to and following administration of 7 mL of Dotarem contrast intravenously. COMPARISON: Brain MRI 09/13/2024 FINDINGS:No restricted diffusion. No acute hemorrhage or abnormal susceptibility artifact There is a mild cerebral atrophy with concordant prominence of ventricles. Moderate to patchy confluent areas of increased FLAIR signal noted within the irina and supratentorial white matter Expected flow voids are noted within the intracranial internal carotid, vertebral basilar arteries. Cerebellopontine angles and internal auditory canals are unremarkable. The pituitary gland midline structures are unremarkable. Bone marrow signal is within normal limits. The orbits and globes are unremarkable. 1.2 cm retention cyst noted within the right maxillary sinus. Mastoid air cells are unremarkable in signal. No abnormal enhancement. Procedure Note Tyrone Herrera MD - 12/28/[address] [address] EXAMINATION: Brain MRI with and without contrast 12/28/2024 INDICATION: Slurred speech for 2 to 3 weeks, history of lung cancer, formetastasis TECHNIQUE: Multiplanar multisequence or imaging of the head was performedprior to and following administration of 7 mL of Dotarem contrastintravenously. COMPARISON: Brain MRI 09/13/2024 FINDINGS:No restricted diffusion. No acute hemorrhage or abnormalsusceptibility artifact There is a mild cerebral atrophy with concordant prominence of ventricles.Moderate to patchy confluent areas of increased FLAIR signal noted withinthe irina and supratentorial white matter Expected flow voids are noted within the intracranial internal carotid,vertebral basilar arteries. Cerebellopontine angles and internal auditorycanals are unremarkable. The pituitary gland midline structures areunremarkable. Bone marrow signal is within normal limits. The orbits and globes are unremarkable. 1.2 cm retention cyst notedwithin the right maxillary sinus. Mastoid air cells are unremarkable insignal. No abnormal enhancement. IMPRESSION: 1. No acute infarct or evidence of intracranial metastasis. 2. Moderate nonspecific patchy FLAIR signal abnormalities of the irina andsupratentorial white matter, compatible with chronic small vessel ischemicchanges, unchanged 2. Mild cerebral atrophy with concordant prominence of the ventricles. Referred By: LILLIANA HORTON Interpreted By: Tyrone Herrera MD, 12/28/2024 11:04 AM us Lilliana Manzoley ORGAN TUNER MRI Final Result * TSH W/REFLEX (12/14/2024 6:35 AM CDT) Pathologist [facility] TSH 0.44 0.40 - 4.50 mIU/L [facility] 12/14/2024 6:35 AM CDT 12/14/2024 6:35 AM CDT Narrative [employer] - [facility] ORDERS - 12/15/2024 2:07 AM CDT FASTING:YES PATIENT UNABLE TO VOID; ADVISED TO RETURN FOR COLLECTION. FASTING: YES Resulting Agency Comment Performing Organization Information: Site ID: [id number] Name: [employer] Address: [address] [place] [address] Director: King Russell MD Emma Mcdonald MD LABORATORY Final Result [facility] [employer] [facility] [id number] [place] [address] [place] [address] * (ABNORMAL) HEMOGLOBIN, GLYCOSYLATED (12/14/2024 6:35 AM CDT) [facility] HGB A1C 5.8(H) <5.7 % of total Hgb [facility] [place] Comment: For someone without known diabetes, a hemoglobin A1c value between 5.7% and 6.4% is consistent with prediabetes and should be confirmed with a follow-up test. For someone with known diabetes, a value <7% indicates that their diabetes is well controlled. A1c targets should be individualized based on duration of diabetes, age, comorbid conditions, and other considerations. This assay result is consistent with an increased risk of diabetes. Currently, no consensus exists regarding use of hemoglobin A1c for diagnosis of diabetes for children. 12/14/2024 6:35 AM CDT 12/14/2024 6:35 AM CDT Narrative [employer] [facility] - [facility] ORDERS - 12/15/2024 2:07 AM CDT FASTING:YES PATIENT UNABLE TO VOID; ADVISED TO RETURN FOR COLLECTION. FASTING: YES Resulting Agency Comment Performing Organization Information: Site ID: [id number] Name: [employer] [facility] Address: [address] [place] [address] Director: King Russell Emma Mcdonald MD LABORATORY Final Result Performing Organization Address [facility] Co de Phone Number [facility] RULA KAITLYNN ORDERS [facility] [place], [place] [address] [place] [address], [place] * VITAMIN B-12 (12/14/2024 6:35 AM CDT) Pathologist [facility] VITAMIN B12 S/P/B 509 200 - 1,100 pg/mL [facility] 12/14/2024 6:35 AM CDT 12/14/2024 6:35 AM CDT Narrative [facility] - 12/15/2024 2:07 AM CDT FASTING:YES PATIENT UNABLE TO VOID; ADVISED TO RETURN FOR COLLECTION. FASTING: YES Resulting Agency Comment Performing Organization Information: Site ID: [id number] Name: [employer] [facility] Address: [address] [place] [address] Director: King Russell MD Emma Mcdonald MD LABORATORY Final Result Performing Organization Address [facility] de Phone Number [facility] RULA KAITLYNN [facility] [id number] [place] [address] * (ABNORMAL) LIPID PANEL (12/14/2024 6:35 AM CDT) Pathologist [facility] CHOLESTEROL 218(H) <200 mg/dL [facility] HDL 48(L) > OR = 50 mg/dL [facility] TRIGLYCERIDES 165(H) <150 mg/dL [facility] LDL (CALCULATED) 140(H) mg/dL (calc) [facility] Comment: Reference range: <100 Desirable range <100 mg/dL for primary prevention; <70 mg/dL for patients with CHD or diabetic patients with > or = 2 CHD risk factors. LDL-C is now calculated using the Trinidad calculation, which is a validated novel method providing better accuracy than the Friedewald equation in the estimation of LDL-C. Parker DILLARD et al. FERNANDO. 2013;310(19): 7633-3244 (http://education.BrainMass.ProtoShare/faq/JDS044) CHOL/HDL RATIO 4.5 <5.0 (calc) [facility] DIAGNOSTICS [facility] NON HDL CHOLESTEROL 170(H) <130 mg/dL (calc) [facility] Comment: For patients with diabetes plus 1 major ASCVD risk factor, treating to a non-HDL-C goal of <100 mg/dL (LDL-C of <70 mg/dL) is considered a therapeutic option. 12/14/2024 6:35 AM CDT 12/14/2024 6:35 AM CDT Narrative [employer] - [facility] ORDERS - 12/15/2024 2:07 AM CDT FASTING:YES PATIENT UNABLE TO VOID; ADVISED TO RETURN FOR COLLECTION. FASTING: YES Resulting Agency Comment Performing Organization Information: Site ID: [id number] Name: [employer] Address: [address] [place] [address] [place] [address] Director: King Russell MD us Emma Mcdonald MD LABORATORY Final Result Performing Organization Address [facility] Co de Phone Number [employer] RULA - KAITLYNN FINN [facility] [id number] [place] [place] [address], * DIABETIC RETINOPATHY EXAM (NEGATIVE) (09/04/2024) us [employer] Scanned SCANNING Final Resu lt Performing Organization Address [facility] Co de Phone Number [facility] * MG SCREENING W NIKOLAY RJA DE LA ROSA (08/05/2023 11:06 AM CDT) Anatomical Region Laterality Modality Breast Bilateral Mammography 08/08/2023 7:07 AM CDT Impressions 08/08/2023 7:08 AM CDT ===== IMPRESSION: ===== 1. Stable mammographic appearance with no new findings to suggest malignancy in either breast. Assessment: ACR BI-RADS 2 - BENIGN FINDING(S) Recommendation: 1:Routine Screening Bilateral Comments: Ordered By: EMMA MCDONALD Interpreted By: Bruce Gomez MD, 08/08/2023 7:07 AM Narrative 08/08/2023 7:08 AM CDT Examination: Digital bilateral screening mammogram with 3D Tomosynthesis Exam Date/Time: 08/05/2023 10:48 AM Reason For Exam: No prior breast procedures. No personal history of breast cancer. Breast cancer in mother at age 40. No current complaints. Comparison: Mammograms from 09/18/2020 09/13/2019 07/18/2018 Technique: Digital screening mammography of both breasts was performed in addition to 3-D Tomosynthesis technique. This study was read with the assistance of a computer-aided detection system. Tissue density: There are scattered areas of fibroglandular density. Findings: Benign intramammary lymph node again seen on the left. No suspicious interval change in breast parenchyma bilaterally from prior studies. There is no new focal asymmetry, dominant mass lesion, area of skin thickening, or cluster of suspicious appearing calcifications in either breast to suggest malignancy. Emma Mcdonald MD MAMMO Final Result * PAP SMEAR WITH HPV (11/11/2021) 11/11/2021 [facility] Scanned SCANNING Final Resu lt [facility] ONBASE * Cytopath Cerv/Vag Thin Layer (03/17/2017 12:00 AM DISPLAYER) PAP SMEAR Abnormal [facility] T O EPIC CONVERSION 03/17/2017 03/17/2017 Generic Conversion Md [facility]/CYTOLOGY WIL HEALY Final Result [facility] TO EPIC CONVERSION * Colonoscopy (08/11/2016 12:00 AM CDT) 08/11/2016 08/11/2016 Narrative [facility] TO EPIC CONVERSION - 08/11/2016 12:00 AM CDT Documented hx of procedure Procedure Note Bessie Brown, - 12/18/2017 Documented hx of procedure us Generic Conversion Md [facility] PROCEDURE ORDERABLES Final Result [facility] TO EPIC CONVERSION from Last 3 Months or Most Recently Relevant to Health Maintenance Additional Health Concerns Infection Onset Date Last Indicated 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 06/08/24 +MRSA sputum 06/05/2024 06/08/2024 Insurance [facility] Advance Directives Documents on File Type Date Recorded Patient Clam Picker Expl anation Advance Directives and Living Will 06/06/2024 3:45 PM 06/05/2024 POA FOR HEALTH CARE * Full Code (Latest Code Status on File) Date Activated Date Inactivated Comments 02/04/2025 11:21 AM 02/05/2025 4:21 PM * Full Code Date Activated Date Inactivated Comments 06/08/2024 1:35 PM 06/09/2024 6:11 PM * Full Code Date Activated Date Inactivated Comments 01/29/2023 9:06 AM 01/31/2023 2:58 PM Healthcare Agents on File Name Relationship Healthcare Agent [facility] Communication Norman Banerjee Spouse First Alternate Health Care Agent 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 [facility] [address] [place] [address] Consulting Physician CARDIOVASCULAR DISEASE 05/29/24 Gemma Reed MD [address] [facility] [address] [place] [address] GASTROENTEROLOGY 05/29/24 Suhas Canada DO 3 [facility] [address] [place] [phone] Resident GASTROENTEROLOGY 05/29/24 Blaise Jennings MD [address] [place] [address] [address] [place] [phone] Medical Oncologist HEMATOLOGY/ONCOLOGY 05/29/24 Ant Kelly MD [address] [facility] [address] Consulting Physician RADIATION ONCOLOGY 06/18/24
--- NOTE | 2025-02-08 10:37 | P.HP_ITS ---
History of Present Illness History of Present Illness Consent: Risks, benefits, and alternatives have been discussed and questions answered. Patient agrees to proceed with procedure. Chief complaint: Kidney Calculi Narrative: Talia Cintron is a 59 year old female who was recently found to have two right distal ureteral stones (7mm and 4mm) for which she presents today for endoscopic management of these stones. She was also recently hospitalized at outside hosp [facility] for stroke. She has been cleared for surgery. She denies any other changes past her baseline and is ready for the procedure today. Review of Systems Review of Systems: Constitutional: No fevers or chills Eyes: No changes in vision HENT: No hearing loss Cardiovascular: No chest pain or palpitations Respiratory: No shortness of breath, cough, wheezing GI: No abdominal pain, nausea, or vomiting : No dysuria or difficulty urinating Heme: No easy bruising or bleeding Skin: No rash or itching MSK: No myalgias or joint pain Psych: No hallucinations Neuro: No lateralized numbness or tingling PMFSH Family History Family History (Updated 06/09/16 @ 08:14 by DOCTOR UNKNOWN) Father Diabetes mellitus, Onset Age: 78 Family history of cardiovascular disease, Onset Age: 78 Family history of chronic obstructive pulmonary disease, Onset Age: 78 Grandparent Family history of alcoholism, Onset Age: 85 Acute myocardial infarction, Onset Age: 40 Family history of Alzheimer's disease, Onset Age: 80 Family history unknown Mother Family history of malignant neoplasm of breast in first degree relative, Onset Age: 40 Social History Social History Years smoked: 50 Smoking status: Current every day smoker Tobacco type: cigarettes Second hand tobacco smoke exposure: No Alcohol intake: current Living arrangements: with family Spiritual care concerns: No Meds Home Medications and Allergies Home Medications ?Medication ?Instructions ?Recorded ?Confirmed ?Type albuterol 90 mcg/actuation aerosol 90 mcg inhalation Q ID PRN dyspnea 02/01/25 02/01/25 History inhaler fluticasone fur. 200 mcg-umeclid 1 inh inhalation BALBINA Y 02/01/25 02/08/25 History 62.5 mcg-vilant 25 mcg inhalat.powder (Trelegy Ellipta) megestrol 400 mg/10 mL (40 mg/mL) 10 mg PO DAILY 02/0102/08/25 History oral suspension metoclopramide HCl 5 mg tablet 5 mg PO QID 02/01/25 History ondansetron 4 mg disintegrating 4 mg PO DAILY PRN naus ea and 02/01/25 02/01/25 History tablet vomiting prochlorperazine maleate 10 mg 10 mg PO Q8H PRN nausea and 02/01/25 02/01/25 History tablet vomiting Allergies Allergy/AdvReac Type Severity Reaction Status Date / Time doxycycline Allergy Intermediate Rash Verified 02/08/25 10:12 Sulfa (Sulfonamide Allergy Intermediate Rash Verified 02/08/25 10:12 Antibiotics) Vital Signs Vital Signs - 24 hr 02/08/25 09:30 Temperature 36.4 C Pulse Rate 88 Respiratory Rate 16 Blood Pressure 154/69 H Pulse Oximetry 100 Oxygen Delivery Room Air Exam Narrative: General: Alert, no acute distress Head: Normocephalic, atraumatic Eyes: Extraocular movements intact Neck: No JVD, trachea midline Respiratory: Symmetric chest rise, nonlabored breathing on room air CV: Normal rate, adequate peripheral perfusion Abdomen: Soft, nontender, nondistended Skin: Warm/dry Extremities: No peripheral edema, no cyanosis Neuro: No focal deficits Psych: Answers questions appropriately, appropriate mood Assessment and Plan Assessment and plan (1) Calculus of right ureter: Code(s): N20.1 - Calculus of ureter Status: Acute Assessment and Plan: 59yF with right distal ureteral stones - To OR for cystoscopy, right retrograde pyelogram, ureteroscopy, laser lithotripsy, stone basket extraction, right ureteral stent placement - The risks, benefits, and alternatives were thoroughly discussed with the patient. The modus operandi of the procedure as well as the risks of the procedure were outlined, including but not limited to pain, bleeding, infection, and potential damage to surrounding structures such as the urethra, bladder, ureter, or kidney. Additionally, the risks of dysuria, hematuria, the inability to reach the stone, inability to place a ureteral stent necessitating placement of a nephrostomy tube, and the potential need for subsequent procedures were reviewed. The necessity of removing any ureteral stent, if placed, was emphasized to the patient. I explained that failure to remove the stent could result in long-term complications to the kidney, ureter, and the genitourinary tract, including but not limited to permanent kidney damage or kidney failure. I also reviewed the temporary nature of ureteral stents, noting that they can cause discomfort similar to renal colic and may lead to irritative voiding symptoms as well as hematuria. The patient was informed that stents are not permanent and must be either removed or exchanged periodically to prevent encrustation and irreversible kidney damage. The patient indicated full understanding of these risks and requirements. The patient has verbally acknowledged comprehension and has agreed to proceed with the surgery. - Anticipate discharge home thereafter
--- NOTE | 2025-02-08 10:37 | WPDHPUPDATE1 ---
History and Physical Update Update Date/Time: 02/08/25 10:37 History and Physical has been reviewed, including an updated exam of the patient. There are NO changes in the patient's condition. Risks, benefits, and alternatives have been discussed and questions answered. Patient agrees to proceed with procedure.
--- NOTE | 2025-02-08 10:37 | WPDANESEPPF ---
Anes - Initial Pre Proc Eval Procedure: Operation Date: 02/08/25 12:30 Proposed Procedures p Cystoscopy, Right Retrograde Pyelogram, Right Ureteroscopy, Holmium Laser Lithotripsy, Right Stent Placement - Rik Rojas MD Date/Time: 02/08/25 10:37 Surgeon: Rik Rojas MD Pre Op Diagnosis: Kidney Calculi Patient Data Age: 59 Gender: F Height: 1.55 m Weight: 37.3 kg Last Vital Signs Temp 97.6 F 02/08/25 09:30 Pulse 88 02/08/25 09:30 Resp 16 02/08/25 09:30 BP 154/69 H 02/08/25 09:30 Pulse Ox 100 02/08/25 09:30 O2 Del Method Room Air 02/08/25 09:30 Allergies Allergy/AdvReac Type Severity Reaction Status Date / Time doxycycline Allergy Intermediate Rash Verified 02/08/25 10:12 Sulfa (Sulfonamide Allergy Intermediate Rash Verified 02/08/25 10:12 Antibiotics) Home Medications ?Medication ?Instructions ?Recorded ?Confirmed ?Type albuterol 90 mcg/actuation aerosol 90 mcg inhalation QID PRN dyspnea 02/01/25 02/01/25 History inhaler fluticasone fur. 200 mcg-umeclid 1 inh inhalation DAILY 02/01/25 02/08/25 History 62.5 mcg-vilant 25 mcg inhalat.powder (Trelegy Ellipta) megestrol 400 mg/10 mL (40 mg/mL) 10 mg PO DAILY 02/01/25 02/08/25 History oral suspension metoclopramide HCl 5 mg tablet 5 mg PO QID 02/01/25 02/08/25 History ondansetron 4 mg disintegrating 4 mg PO DAILY PRN nausea and 02/01/25 02/01/25 History tablet vomiting prochlorperazine maleate 10 mg 10 mg PO Q8H PRN nausea and 02/01/25 02/01/25 History tablet vomiting Patient hx anesthesia problems: none Family hx anesthesia problems: none Results Review: All pre-operative results and documents have been reviewed as part of the pre-operative evaluation. [facility] Family History Family History (Updated 06/09/16 @ 08:14 by DOCTOR UNKNOWN) Father Diabetes mellitus, Onset Age: 78 Family history of cardiovascular disease, Onset Age: 78 Family history of chronic obstructive pulmonary disease, Onset Age: 78 Grandparent Family history of alcoholism, Onset Age: 85 Acute myocardial infarction, Onset Age: 40 Family history of Alzheimer's disease, Onset Age: 80 Family history unknown Mother Family history of malignant neoplasm of breast in first degree relative, Onset Age: 40 Social History Social History Years smoked: 50 Smoking status: Current every day smoker Tobacco type: cigarettes Second hand tobacco smoke exposure: No Alcohol intake: current Living arrangements: with family Spiritual care concerns: No Anes - Eval Final PreProcedure Day of Procedure 02/08/25 10:37 Patient weight: thin Heart: regular rate and rhythm Lungs: clear to auscultation Airway: Mallampati scale class II Neurological: alert and oriented Last oral intake: >/= 8 hours ASA classification: IV Emergent: no Anesthetic plan: proceed Anesthesia type and monitoring: general LMA Results Review: All pre-operative results and documents have been reviewed as part of the pre-operative evaluation. Informed Consent: The patient's anesthetic plan and its attendant risks and benefits were discussed with the patient/family/POA. Questions were solicited and answers provided to the satisfaction of the patient/family/POA.
[2025-02-08] MEDS: ceFAZolin 2 GM in SODIUM CHLORIDE 0.9% IV 50 ML 100 ML IVPB (12:28)
--- NOTE | 2025-02-08 13:10 | S_PTH ---
PATIENT: Talia Cintron V LOC: [facility] U#:[id number] AGE/SX: 59/F ROOM: RE02/08/[address]: Rik Rojas MD : 1965 BED: DIS: 02/08/2025 SPEC #: [id number] RECD: 02/11/25 08:24 STATUS: MARIEL REPaola #: [id number] BLADIMIR: 02/08/25 13:[address]: Rik Rojas DEPT: [facility] Surgical RECD BY: Michelle Hughes ENTERED: 02/11/25 08:25 SP TYPE: Surgical OTHR DR: Hien Cunningham, Tissues: A - Stone Procedures: Gross Exam Level 1 Crystalline Analysis
[2025-02-08] MEDS: LACTATED RINGERS 1,000 ML 30 ML IV CONT (13:21)
--- NOTE | 2025-02-08 13:36 | P.OP_ITS ---
Procedure Note - Detailed Date of Procedure 02/08/25 Pre-op Diagnosis Right ureteral stones Post-op Diagnosis Same Procedure Performed 1. Cystoscopy 2. Right retrograde pyelogram with intraoperative interpretation 3. Right ureteroscopy 4. Laser lithotripsy 5. Stone basket extraction 6. Right ureteral stent placement Surgeon Rik Rojas MD Anesthesia General Findings 1. Cystoscopy revealed orthotopic ureteral orifices bilaterally with no suspicious lesions, tumors, active bleeding, or stones and lower urinary tract. 2. Right retrograde pyelogram using a 50 50 mixture of contrast and saline showed filling defects in the right distal ureter with minimal associated hydronephrosis and no contrast extravasation 3. Right ureteroscopy revealed 2 adjacent stones in the right distal ureter commensurate patient's prior CT scan measuring about 7 mm and 4 mm. These were successfully treated with a combination of laser lithotripsy and stone basket extraction 4. Completion ureteroscopy revealed no sizable residual stones nor notable ureteral injury 5. Successful right ureteral stent placement with strings attached Description of Procedure After informed consent was obtained, the patient was brought back to the operating theatre and placed in the supine position on the operating table. Pre- operative antibiotics were confirmed to have been administered. Anesthesia was induced. The patient was moved into the dorsal lithotomy position and prepped and draped in the standard sterile fashion for an endoscopic case. All pressure points were padded. Bilateral sequential compression devices were on and noted to be functioning. A formal timeout was performed with Dr. Rojas in attendance to confirm the correct patient, site/laterality, and procedure and all were in agreement to proceed. To begin with, I atraumatically advanced a lubricated 22-Lithuanian rigid cystoscope transurethrally into the patient's bladder. Pancystoscopy was performed with findings as noted above. Attention was then turned to the right ureteral orifice, which was gently cannulated with a Sensor wire which was advanced up to the level of the right distal ureter under fluoroscopy. Over top of the wire, a 5-Lithuanian open ended catheter was advanced to the level of the distal ureter. The wire was removed keeping the open-ended catheter in place and a right retrograde pyelogram was performed using a 50:50 mixture of saline and contrast with findings as noted above. The wire was then replaced through the open-ended catheter and was advanced up to the level of the right kidney under fluoroscopy. Afterwards, the open-ended catheter was removed in Seldinger fashion, leaving the wire in place, the latter of which was secured to the drapes with a hemostat. Next, I advanced a semi rigid ureteroscope transfer the patient's bladder and cannulated the right year orifice of the 2nd, safety Glidewire was also advanced to the level of the right kidney under fluoroscopy. I then guided the ureteral scope between the 2 wires and performed right ureteroscopy. I encountered 2 stones in the right distal ureter commensurate with the patient's prior CT scan measuring about 7 mm and 4 mm. I then removed the Glidewire and then advanced the 200 micron Shamir laser and performed laser lithotripsy, fragmenting and dusting the stones into smaller pieces. Any larger fragments were then sequentially grasped and deployed in the bladder for later collection. I then performed completion ureteroscopy and noted no sizable residual stones nor notable ureteral injury. Through the ureteral scope I then performed another right-sided retrograde pyelogram in order to delineate the right collecting system in anticipation of stent placement. I then removed the ureteroscope backloaded the cystoscope onto the Sensor wire was advanced transurethrally into the patient's bladder with attention drawn to the right ureteral orifice. Over top of the wire, a 6-Lithuanian x 24 cm JJ stent with strings attached was advanced and the pusher was used to deploy the stent in place, confirming a good proximal curl in the right kidney under fluoroscopy and a good distal curl in the bladder under both fluoroscopic and direct cystoscopic vision. The patient's bladder was then emptied, the stones collected and sent off for kidney stone analysis, and the cystoscope was removed. I then coiled the strings attached to the stent secured them to a piece of small Tegaderm and placed this in the patient's vagina to minimize risk of inadvertent dislodgement of the stent, essentially concluding the case. At the conclusion of the case all sponge, instrument, and sharp counts were correct x 2. The patient was then awoken from anesthesia and taken to the recovery room in stable condition. The patient tolerated the procedure well and there were no immediate complications noted. Disposition: The patient will be monitored in the PACU discharged home with clearing PACU protocol. She was instructed to remove her stent at home on 4 days' time on 02/12/2025. Patient's was provided with the following surgery all questions were answered to his satisfaction at the conclusion for discussion.
== END 2025-02-08 15:07 | disposition home or self-care (01) ==
PROVIDERS: PCP Family Medicine; Visit Provider Urology
PROC: (CPT 52352; principal; 2025-02-08 12:30)
DX: N20.1 Calculus of ureter (principal); F17.210 Nicotine dependence, cigarettes, uncomplicated; Z79.899 Other long term (current) drug therapy
CPT/HCPCS: 52356; 74420; 82365; 82948; 88300; J0690; C1758; C1769; C2617; J2003; J2250; J2405; J2704; J3010; J7120; Q9966